=== PATIENT | female | born 1945 | race Caucasian/White ===

== ENCOUNTER 2017-08-25 10:36 | Emergency (ER) | payer MEDICARE, OTHER ==
[2017-08-25 10:55] VITALS: BP 118/78
[2017-08-25] MEDS ORDERED: Amoxicillin/Clavulanate TAB* 875 MG PO ONE (11:39)
--- NOTE | 2017-08-25 11:50 | UC ---
Brock Wyman Rebecca, scribed for Gloria Frost MD on 08/25/17 at 1116 . Upper Extremity HPI - HPI Summary HPI Summary: Pt is a 71 y/o F who presents to [facility] c/o right 4th finger swelling and erythema around the fingernail. Sx began a few days as what she initially believed to be a hangnail. The pain is currently moderate, ranked 6/10 and has not been treated with any medication. Soaked the finger in epsom salts and hydrogen peroxide which did not improve symptoms. Sx aggravated by touch, alleviated by nothing. No h/o similar Pt also notes mild erythema and R wrist pain on medial, volar wrist, beginning at about 0400, which has improved since onset and she suspects may be an arthritic flare. Denies elbow pain, fever, chills.No red streaking. No edema. No analgesia taken. no h/o similar No h/o gout. PMHx arthritis and she is not immunocompromised; no PMHx gout. medications reviewed this visit - History of Current Complaint Chief Complaint: UCUpperExtremity Stated Complaint: FINGER PAIN Time Seen by Provider: 08/25/17 11:13 Hx Obtained From: Patient Onset/Duration: Lasting Days, Still Present Severity Currently: Moderate Pain Intensity: 6 Pain Scale Used: 0-10 Numeric Location Of Pain: Is Discrete @ - Right 4th finger Aggravating Factor(s): Other - Palpation Alleviating Factor(s): Nothing Associated Signs And Symptoms: Positive: Swelling, Redness - Allergies/Home Medications Allergies/Adverse Reactions: Allergies Allergy/AdvReac Type Severity Reaction Status Date / Time Sulfa (Sulfonamide Allergy Hives Verified 08/25/17 10:55 Antibiotics) trimoxosol Allergy Hives Uncoded 08/25/17 10:55 PMH/Surg Hx/FS Hx/Imm Hx - Additional Past Medical History Additional PMH: PMHx: Arthritis NEGATIVE PMHx: DM, COPD, gout Previously Healthy: Yes Cardiovascular History: Hypertension - Surgical History Surgical History: Yes Surgery Procedure, Year, and Place: PARTIAL THYROIDECTOMY 2004;. TONSILS A CHILD. Rt HIP REPLACEMENT - Family History Known Family History: Positive: Cardiac Disease - Social History Lives: With Family Alcohol Use: Rare Substance Use Type: None Smoking Status (MU): Never Smoked Tobacco Have You Smoked in the Last Year: No Review of Systems Constitutional: Negative Skin: Negative Eyes: Negative ENT: Negative Respiratory: Negative Cardiovascular: Negative Gastrointestinal: Negative Genitourinary: Negative Motor: Negative Neurovascular: Negative Musculoskeletal: Arthralgia - Right 4th finger pain, right wrist pain, Other: - Right 4th finger swelling and erythema Neurological: Negative Psychological: Negative All Other Systems Reviewed And Are Negative: Yes - Comments Additional Review of Systems Comments: NEGATIVE: Elbow pain, fever, and chills Physical Exam Triage Information Reviewed: Yes Appearance: Well-Appearing, No Pain Distress, Well-Nourished Vital Signs: Initial Vital Signs Temp 98.0 F 08/25/17 10:49 Pulse 70 08/25/17 10:49 Resp 18 08/25/17 10:49 BP 118/78 08/25/17 10:49 Pulse Ox 100 08/25/17 10:49 Vital Signs Reviewed: Yes Eyes: Positive: Conjunctiva Clear ENT: Positive: Hearing grossly normal Neck: Positive: Supple Respiratory: Positive: No respiratory distress, No accessory muscle use Cardiovascular: Positive: Other: - 2+ radial 2+ ulnar CBT <2 sec all digits Musculoskeletal: Positive: Other: - + flex/ext right elbow + pronate/supinate right elbow + flex/ext wrist mild disocmfort medial aspect of wrist - no crepitus, no edema no pain carpals, metacarpals, phalanges Neurological: Positive: Alert, Muscle Tone Normal Psychological Exam: Normal Skin Exam: Other - right ring finger pt with early paronychia medial aspect. erythema from cuticle to mid point of DIP no fluctuance, no appreciable fluid collection mild tenderness right wrist, doral aspect - pt with quarter size mild erythema prox to radial styloid. mild warmth. no edema, no ecchymosis mild tenderness Pt with Full ROM wrist Upper Extremity Course/Dx - Course Course Of Treatment: Patients medications reviewed this visit. Pt with paronychia right right finger without fluid pocket for drainage. epsom salt soaks. Aumgentin. splint. return precautions. pt with patch of erthema right dorsum wrist mild tenderness. minimal concern for infection - suspect arthritis vs gout - no h/o similar. recommend NSAID. bmp/uric acid. splint for comfort. return precautions. pt comfortable and in agreement with plan - Differential Dx/Diagnosis Provider Diagnoses: paronychia. wrist pain Discharge - Sign-Out/Discharge Documenting (check all that apply): Discharge - Discharge Plan Condition: Stable Disposition: HOME Prescriptions: Amoxicillin/Clavulanate TAB* [Augmentin TAB 875*] 875 mg PO BID #14 tab Patient Education Materials: Paronychia (ED), Gout (ED) Referrals: Kell Ramesh MD [Primary Care Provider] - Additional Instructions: For your Finger: - soak in warm epsom salts for 15 minutes, 2-3 times a dayfor 5 days - wear splint for comfort and support - Take antibiotics as prescribed until gone - take with food - Contact your dentist office on Sunday to discuss if you should take additional Amoxicillin prior to your procedure For your wrist: As discussed, the provider thinks this is related to your arthritis, but it may be an early gout flare. You had blood work drawn today - you will receive a call from our care team if your bloodwork is markedly abnormal. Wear splint for comfort Consider alternating ibuprofen (advil, motrin) 600mg and Tylenol every 3hours as needed for pain If you develop increased pain, swelling, fever, red streaking it is recommended you go directly to the emergency department for additional testing and evaluation. Contact your doctor or return with questions or concerns - Billing Disposition and Condition Condition: STABLE Disposition: HOME The documentation as recorded by the Brock rodriguez Rebecca accurately reflects the service I personally performed and the decisions made by me, Gloria Frost MD.
[2017-08-25 14:50] LABS: Uric Acid 3.6 mg/dL (2.3-6.6)
== END 2017-08-25 12:05 | disposition home or self-care (01) ==
LOC: UCEAST 10:36
DX: L03.011 Cellulitis of right finger (principal); M25.531 Pain in right wrist; Z88.2 Allergy status to sulfonamides; Z88.8 Allergy status to other drugs, medicaments and biological substances
CPT/HCPCS: 36415; 80048; 84550; 99213; A9270-GY; G0463

== ENCOUNTER 2018-09-24 10:48 | Day surgery (SDC) | payer MEDICARE, OTHER ==
[~2018-09-24 10:48] MED LIST: Buffered Lidocaine 1% SYRIN* 1 ML/SYRINGE INTRADERM ONE
[2018-09-24] MEDS ORDERED: Midazolam* 1 MG/ML 2 ML VIAL (2 MG) ONE (11:53)
[2018-09-24] MEDS ORDERED: fentaNYL* 50 MCG/ML 2 ML VIAL (100 MCG VIAL) ONE (12:07)
[2018-09-24] MEDS ORDERED: Propofol* 10 MG/ML 20 ML BTL ONE (12:09)
[2018-09-24] MEDS ORDERED: Lidocaine 2% PF * 5 ML VIAL ONE (12:09)
[2018-09-24 12:32] VITALS: BP 138/82
--- NOTE | 2018-09-24 13:03 | OP ---
DATE OF OPERATION/DATE OF DICTATION: 09/24/2018. DATE OF : 1945. SURGEON: Dr. Carlitos Armijo. [employer]INEER: None. ANESTHESIA: Topical with intravenous sedation. PRE-OP DIAGNOSIS: Cataract, right eye. POST-OP DIAGNOSIS: Cataract, right eye. OPERATIVE PROCEDURE: Phacoemulsification and cataract extraction with posterior chamber intraocular lens implant, right eye. COMPLICATIONS: None. BLOOD LOSS: None. OPERATIVE FINDINGS: The patient was brought to the operating room and received a small amount of int ravenous sedation. A drop of Tetracaine was placed in her right eye. She was prepped and draped in the usual sterile fashion for ophthalmic surgery and attention was directed to the right eye where a speculum was placed. A paracentesis was created at the 11 o'clock position and 0.1 cc of 1 percent p reservative-free Lidocaine was injected into the anterior chamber followed by DisCoVisc. The eye was digitally stabilized while a 2.75 mm keratome was used to create a triplanar clear corneal incision at the 9 o'clock position. A continuous curvilinear capsulorrhexis was created with a cystotome and Utrata forceps. BSS on a cannula was used to hydrodissect the lens from the capsule. Phacoemulsific ation was performed in a [id number] technique to create four fragments which were removed. R esidual cortical material was removed with irrigation and aspiration. DisCoVisc was used to inflate t he capsular bag and an AUOOTO 20.5 diopter lens was folded and inserted into the capsular bag. DisCo Visc was removed using irrigation and aspiration. BSS on a cannula was used to hydrate the corneal s troma and seal the wound. At the end of the case the pupil was round and the lens was centered. The eye was of normal pressure and the wound was water tight. The speculum was removed and topical Maxit rol ointment was placed on the surface of the eye. The eye was closed, patched and shielded and the patient was sent to the recovery room in stable condition with post operative instructions and follow -up appointment given. [id number]/[facility] #: [id number]
[2018-09-24] MEDS ORDERED: Tetracaine 0.5% OPTH.SOL 4 ML* 1 DROP BTL ONE (15:40)
[2018-09-24] MEDS ORDERED: Neomycin/Polymy/Dex OPHTH.OIN* 3.5 GM ONE (15:40)
[2018-09-24] MEDS ORDERED: Tropicamide 1% OPTH.SOL* BTL ONE (15:40)
[2018-09-24] MEDS ORDERED: Cyclopentolate 1% OPTH.SOL* 2 ML BTL ONE (15:40)
[2018-09-24] MEDS ORDERED: Lidocaine 1%* 5 ML VIAL ONE (15:40)
[2018-09-24] MEDS ORDERED: Phenylephrine OPHTH SOL 2.5%* 2 ML ONE (15:40)
[2018-09-24] MEDS ORDERED: Ketorolac 0.5% OPHTH (NF) 0.5 % 5 ML BTL ONE (15:40)
== END 2018-09-24 12:42 | disposition home or self-care (01) ==
LOC: OREAST 10:48
PROVIDERS: ATTEND Ophthalmology
DX: H25.11 Age-related nuclear cataract, right eye (principal); H25.041 Posterior subcapsular polar age-related cataract, right eye; I10 Essential (primary) hypertension; M48.02 Spinal stenosis, cervical region; H18.51 Endothelial corneal dystrophy; C18.1 Malignant neoplasm of appendix; Z88.5 Allergy status to narcotic agent; Z88.2 Allergy status to sulfonamides; Z88.8 Allergy status to other drugs, medicaments and biological substances
CPT/HCPCS: A9270-GY; J2250; J2704; J3010; V2632

== ENCOUNTER 2018-10-09 13:11 | Emergency (ER) | payer MEDICARE, OTHER ==
--- OUTSIDE RECORDS SUMMARY | 2018-10-09 13:24 | XMS REPORT | Continuity of Care Document ---
:1945 External Reference #:[id number] Author Name Mallory Fan Care Team Providers Name Role Phone Kell Ramesh MD Primary Care Physician Unavailable Payers Date Identification Numbers Payment Provider Subscriber Effective: 2011 Policy Number: [id number] Medicare Christ Taylor PayID: [id number] [address] [place] [address] Policy Number: [id number] [facility] Christ Taylor PayID: [id number] [address] [place] [address] Effective: 2018 Policy Number: [id number] [facility] Christ Taylor Onset: 2018 Group Number: [id number] [address] PayID: [id number] [place] [address] Expires: 2018 Policy Number: [id number] [employer] Christ Hoffman [employer] Group Number: [id number] [employer] Group Name: [facility]#[id number] 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 Active Onset: 03/19/2015 Essential hypertension Kell Ramesh M.D. Active Onset: 10/13/2015 Localized, primary osteoarthritis of Meggan Costello M.D. Active the pelvic region and thigh Onset: 05/19/2017 Spinal stenosis in cervical region Kell Ramesh M.D. Active Family History Date Family Member(s) Observation Comments General Heart Disease General Diabetes General Cancer : (age 74 Father due to Cancer, Years) Colon Father Colon Cancer Father Lung Cancer Father Skin Cancer Father Hypertension Father Diabetes Father psychiatric disorder : (age 93 Mother due to Stroke breast CA (lumpectomy Years) at age 85), dementia Mother Breast Cancer Mother Arthritis Mother Dementia First Daughter Chronic pain : (age 58 First Brother due to Heart ND, sudden . He Years) Disease had muscular dystrophy. Autopsy showed cardiomegaly, remote infarct, pulm congestion, widely patent coronaries. 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 ETOH Use Drinks Alcoholic 1/2 glass of wine or Beverages Rarely beer rarely Tobacco Use Start: Unknown Patient has never smoked Recreational Drug Use Denies Drug Use Smoking Status Reviewed: 09/10/18 Patient has never smoked Exercise Type/Frequency Exercises regularly walk or stationary bike 5-6 times per week, strength exercises 3-4 times per week Allergies, Adverse Reactions, Alerts Date Description Reaction Status Severity Comments 07/20/2009 Sulfa rash see notes 11/30/92 Active 07/20/2009 Bactrim Urticaria Active 02/04/2010 Trimox Urticaria Active Moderate 07/25/2018 [place] Venom Active Protein Medications Medication Date Status Form Strength Qnty SIG Indications Ordering Provider Docusate Sodium 11/17 Active Capsules 100mg 60cap as needed s Epipen 2-Kip 11/07 Active Solution 0.3mg/0.3 2unit Use Once Auto-Inject ML s as Lucian Ramesh M.D. Metrogel Active Gel 1% 60gm apply / daily Coenzyme Q-10 Active Capsules 100mg 1 po qd Unknown /0000 Vitamin D-3 Active Tablets 400Unit 2 po qd Unknown /0000 Osteo Prime Ultra Active 2 po bid Unknown /0000 Fish Oil Active as Unknown /0000 directed Vitamin A Active Tablets 74954Srcm every Unknown /0000 other day Aspirin Adult Low Active Tablets DR 81mg 07/25/18 Unknown Strength /0000 reports not taking. take one tablet by mouth daily when she remembers Vitamin C Active Chewtabs 500mg 1 by Unknown /0000 mouth every day Traumeel Active Gel prn Unknown /0000 Lidocaine-Priloca Active Cream 2.5-2.5% Unknown ine /0000 Tylenol Extra Active Tablets 500mg 1-2 tabs Unknown Strength /0000 by mouth every 6 hours as needed Arnica [place] Active Pellet 07/25/18 Unknown /0000 reports not taking. prn for arthritis B6 Natural Active Tablets 100mg take 1 Unknown /0000 capsule/t ablet daily by mouth Essiac Tonic Active Liquid 07/25/18 Unknown /0000 reports has not started yet daily Famotidine Active Tablets 40mg 1 by Unknown /0000 mouth every day Maitake Mushroom Active Unknown Tincture /0000 Simethicone Active Chewtabs 80mg 1 tab Unknown /0000 every 6 hours as needed bloating Glucosamine Active Capsules 500mg 2 by Unknown /0000 mouth every day Zeel Active Ointment prn Unknown /0000 Vitamin D 07/22 Hx Capsules 400Unit 60cap 2 by Daysi (Cholecalciferol) s mouth Diego, - daily N.P. 07/25 Magic Mouthwash 01/07 Hx Equal 840ml lidocaine [employer] , Nguyễn Wiley, - Clover peters,FACP 07/25 maalox, /2018 nystatin, and hydrocort isone; 5 ml qid prn Lidocaine Viscous 01/07 Hx Solution 2% 45ml for magic mouthwash Nguyễn Wiley, - 5 ml qid Colver,FACP 07/25 Hydrocortisone 01/07 Hx Ointment 1% 453.6 for magic 00gm mouthwash Tawana Cooper M.D.,FACP 07/25 Enoxaparin Sodium 11/17 Hx Solution 40mg/0.4M 11.2u Inject 1 L nits Syringe - (40 mg 01/07 total) into the skin every 24 hours for 28 days Ibuprofen 11/17 Hx Tablets 600mg 40tab Take 1 s tablet - (600 mg 05/14 total) mouth every 6 hours Sennosides 11/17 Hx Tablets 8.6mg 30tab as needed s - 07/25 Tramadol HCL 11/17 Hx Tablets 50mg 20tab Take 1 s tablet - (50 mg 03/18 total) mouth every 6 hours as needed Max daily dose: 200 mg (pt does not taking currently : prn) Pravastatin 03/17 Hx Tablets 10mg 90tab 1 by s mouth at Cotton, - bedtime-t M.D. 11/22ora stopped Zostavax /14 Hx Solution 00269Hxj/ 1unit 1 dose Rec 0.65ML s s/c Cotton, - M.D. 12/25 Proair HFA 09/16 Hx Aerosol 108(90Bas 8.500 2 puffs 4 786.05 e) gm times Cotton, - mcg/Act daily as M.D. 12/25 Zostavax 03/14 Hx Solution 66432Ipd/ 1unit 1 dose V70.0 Rec 0.65ML s s/c Cotton, - M.D. 10/01 Toprol XL 11/04 Hx Tablets ER 25mg 90tab Take One 24HR s Tablet By Cotton, - Mouth M.D. 01/07 Every /2017 Ventolin HFA 12/10 Hx Aerosol 108(90Bas 1unit 2 puffs 4 786.09 e) mcg/ac s times a Cotton, - day as M.D. 10/31 Toprol XL 02/09 Hx Tablets ER 25mg 90tab 1 po qd 24HR s Cotton, - M.D. 10/31 Triamcinolone 02/02 Hx Cream 0.1% 30gm apply 782.1 Kell Acetonide thin film Cotton, - twice M.D. 03/17 daily right ankle Proair HFA 01/06 Hx Aerosol 108(90Bas 8.500 2 puffs 4 786.05 e) mcg/ac gm times Cotton, - daily as M.D. 09/16 Ketoconazole 03/14 Hx Cream 2% 30gm apply 782.1 Kell /2010 thin film Cotton, - twice M.D. 07/05 Triamterene-HCTZ 11/09 Hx Capsules 37.5-25mg 45cap 06/05 401.1 Kell /2010 s tablet Cotton, - once M.D. 02/04 Toprol XL 11/07 Hx Tablets ER 50mg 90tab 06/05 Kell /2010 24HR s tablet Cotton, - once M.D. 02/09 Fluticasone 11/07 Hx Suspension 50mcg/Act 16gm 2 Kell Propionate intranasa Cotton, - l puffs M.D. 11/09 daily Pravastatin 11/07 Hx Tablets 20mg 90tab Take One Kell Sodium s Tablet By Cotton, - Mouth AT M.D. 03/17 Bedtime Vitamin D3 Hx Chewtabs 400Unit once Unknown /0000 daily - 10/31 Ar Encap Hx 2 po bid Unknown /0000 - 01/07 Econazole Nitrate Hx Cream 1% 30g topical Unknown /0000 prn - 10/31 Zin Man Drops 00 Hx alt w/ Unknown /0000 Ar- encap - supplemen 09/16 Sun Is Shining Hx Powder 1/2 tsp Unknown /0000 daily - 09/16 Osteo Prime 00/ Hx Unknown /0000 - 07/24 Metoprolol Hx Tablets 25mg 1 by Unknown Tartrate /0000 mouth - daily 09/20 Turmeric Hx Capsules 450mg qd Unknown /0000 - 01/07 Excedrin Migraine Hx Tablets 250-250-6 1 by Unknown /0000 5mg mouth - three 01/07 times day as needed Zeel Hx Ointment prn for Unknown / arthritis - 07/22 Nystatin Hx Suspension 893701Vct 4 Unknown / t/ML millilite - rs four 07/25 times day, swish and swallow for 14 days Ondansetron HCL Hx Tablets 8mg as needed Unknown / - 07/25 5-Fluorouracil Hx Powder part of Unknown / Folfox - chemo 07/22 /2018 Oxaliplatin Hx Solution 100mg/20M Unknown /0000 L - 07/22 Glucosamine Hx Capsules 500Comp 2 daily Unknown Chondroitin 500 /0000 Complex - 07/25 Prochlorperazine Hx Tablets 10mg Unknown Maleate / - 07/25 Immunizations CPT Code Status Date Vaccine Reaction Lot # [id number] Given 03/08/2017 Influenza Virus Vaccine, [id number] Quadrivalent, Split, Preservative Free 44869 Given 02/24/2016 Influenza Virus Vaccine, no reaction noted ... [id number] Quadrivalent, Split, hh Preservative Free 57067 Given 03/30/2015 Pneumococcal Conjugate [id number] Vaccine 13 Valent For Intramuscular Use 82740 Given 03/19/2015 Influenza Virus Vaccine, [id number] Quadrivalent, Split, Preservative Free 02334 Given 03/17/2014 Flu Vaccine Split Virus [id number] Preservative Free For Indiv 3Yr Older Q2037 Given 02/28/2013 Fluvirin Im 3Yrs And Older Q2038 Given 02/12/2012 Fluzone Vaccine [id number] 54775 Given 01/26/2012 Pneumonia Vaccine [id number] 52361 Given 03/20/2011 Influenza Virus 3Yrs & Over [id number] 76141 Given 07/05/2010 Tdap - Tetanus/Diptheria/Acellular Pertussis 15707 Given 04/27/2008 Influenza Virus 3Yrs & Over 76554 Given 04/27/2008 Influenza Virus 3Yrs & Over Vital Signs Date Vital Result Comment 09/10/2018 11:32am Height 63 inches 5'3" Weight 133.00 lb Heart Rate 83 /min BP Systolic Sitting 130 mmHg BP Diastolic Sitting 80 mmHg O2 % BldC Oximetry 100 % BMI (Body Mass Index) 23.6 kg/m2 09/02/2018 9:59am Height 63 inches 5'3" Weight 134.00 lb Heart Rate 78 /min BP Systolic 135 mmHg BP Diastolic 82 mmHg O2 % BldC Oximetry 99 % BMI (Body Mass Index) 23.7 kg/m2 07/25/2018 3:23pm Height 63 inches 5'3" Weight 133.25 lb Heart Rate 86 /min BP Systolic 142 mmHg BP Diastolic 92 mmHg BP Systolic Recheck 138 mmHg BP Diastolic Recheck 86 mmHg Body Temperature 97.8 F O2 % BldC Oximetry 99 % BMI (Body Mass Index) 23.6 kg/m2 05/14/2018 12:10pm Height 63 inches 5'3" Weight 130.00 lb Heart Rate 96 /min BP Systolic 106 mmHg BP Diastolic 73 mmHg Body Temperature 98.3 F O2 % BldC Oximetry 98 % BMI (Body Mass Index) 23.0 kg/m2 03/19/2018 2:47pm Height 63 inches 5'3" Weight 135.00 lb Heart Rate 83 /min BP Systolic Sitting 134 mmHg BP Diastolic Sitting 80 mmHg O2 % BldC Oximetry 97 % BMI (Body Mass Index) 23.9 kg/m2 03/14/2018 4:14pm Height 63 inches 5'3" Weight 135.00 lb Heart Rate 88 /min BP Systolic 126 mmHg BP Diastolic 82 mmHg O2 % BldC Oximetry 97 % BMI (Body Mass Index) 23.9 kg/m2 Last Menstrual Period [id number] 01/07/2018 10:38am Height 63 inches 5'3" Weight 135.00 lb Heart Rate 97 /min BP Systolic Sitting 116 mmHg BP Diastolic Sitting 62 mmHg Body Temperature 98.5 F O2 % BldC Oximetry 98 % BMI (Body Mass Index) 23.9 kg/m2 11/05/2017 8:08am Height 63 inches 5'3" Weight 147.00 lb Heart Rate 72 /min BP Systolic 131 mmHg BP Diastolic 83 mmHg Body Temperature 97.0 F O2 % BldC Oximetry 99 % BMI (Body Mass Index) 26.0 kg/m2 10/12/2017 8:04am Height 63 inches 5'3" Weight 147.00 lb Heart Rate 103 /min BP Systolic Sitting 140 mmHg BP Diastolic Sitting 88 mmHg O2 % BldC Oximetry 99 % BMI (Body Mass Index) 26.0 kg/m2 10/08/2017 10:35am Height 63 inches 5'3" Weight 145.00 lb Heart Rate 80 /min BP Systolic Sitting 120 mmHg BP Diastolic Sitting 78 mmHg Body Temperature 97.1 F O2 % BldC Oximetry 97 % BMI (Body Mass Index) 25.7 kg/m2 09/07/2017 1:25pm Height 63 inches 5'3" Weight 148.75 lb Heart Rate 70 /min BP Systolic 126 mmHg BP Diastolic 80 mmHg Body Temperature 98.3 F O2 % BldC Oximetry 98 % BMI (Body Mass Index) 26.3 kg/m2 06/21/2017 11:28am Height 63 inches 5'3" Weight 150.00 lb Heart Rate 98 /min BP Systolic 150 mmHg BP Diastolic 82 mmHg Body Temperature 98.1 F O2 % BldC Oximetry 99 % BMI (Body Mass Index) 26.6 kg/m2 06/19/2017 10:31am Height 63 inches 5'3" Weight 147.00 lb Heart Rate 88 /min BP Systolic Sitting 132 mmHg BP Diastolic Sitting 81 mmHg Pain Level 1 BMI (Body Mass Index) 26.0 kg/m2 12/25/2016 10:33am Weight 144.00 lb Heart Rate 94 /min BP Systolic 136 mmHg BP Diastolic 72 mmHg Body Temperature 98.3 F O2 % BldC Oximetry 97 % 05/01/2016 2:42pm Height 63 inches 5'3" Weight 142.00 lb Heart Rate 72 /min BP Systolic 128 mmHg BP Diastolic 90 mmHg Body Temperature 98.1 F O2 % BldC Oximetry 98 % BMI (Body Mass Index) 25.2 kg/m2 04/13/2016 12:54pm Weight 141.00 lb Heart Rate 72 /min BP Systolic Sitting 136 mmHg BP Diastolic Sitting 86 mmHg Respiratory Rate 15 /min Body Temperature 97.7 F O2 % BldC Oximetry 98 % 12/29/2015 10:25am Height 63 inches 5'3" Weight 137.00 lb Pain Level 4 BMI (Body Mass Index) 24.3 kg/m2 12/13/2015 10:30am Weight 137.00 lb Heart Rate 91 /min BP Systolic Sitting 120 mmHg recheck 130/88 BP Diastolic Sitting 90 mmHg recheck 130/88 Body Temperature 98.0 F O2 % BldC Oximetry 98 % 11/24/2015 10:10am Height 63 inches 5'3" Heart Rate 140 /min Pain Level 6 10/13/2015 9:48am Height 63 inches 5'3" Weight 140.00 lb Heart Rate 71 /min BP Systolic 118 mmHg BP Diastolic 70 mmHg BMI (Body Mass Index) 24.8 kg/m2 10/08/2015 9:46am Height 62.50 inches 5'2.50" Weight 142.00 lb Heart Rate 68 /min BP Systolic Sitting 112 mmHg BP Diastolic Sitting 72 mmHg Body Temperature 97.0 F O2 % BldC Oximetry 97 % BMI (Body Mass Index) 25.6 kg/m2 09/20/2015 10:25am Weight 141.75 lb Heart Rate 76 /min BP Systolic Sitting 126 mmHg BP Diastolic Sitting 64 mmHg Body Temperature 97.3 F Pain Level 1 O2 % BldC Oximetry 98 % 07/21/2015 9:10am Weight 142.75 lb Heart Rate 80 /min BP Systolic Sitting 124 mmHg BP Diastolic Sitting 76 mmHg Body Temperature 97.1 F Pain Level 0 O2 % BldC Oximetry 96 % 04/15/2015 2:49pm Weight 144.50 lb Heart Rate 84 /min BP Systolic Sitting 125 mmHg BP Diastolic Sitting 82 mmHg O2 % BldC Oximetry 96 % 03/19/2015 3:05pm Height 62.75 inches 5'2.75" Weight 146.00 lb Heart Rate 80 /min BP Systolic Sitting 129 mmHg BP Diastolic Sitting 83 mmHg Body Temperature 97.1 F O2 % BldC Oximetry 98 % BMI (Body Mass Index) 26.1 kg/m2 11/20/2014 4:14pm Height 63 inches 5'3" Weight 147.00 lb Heart Rate 75 /min BP Systolic 120 mmHg BP Diastolic 79 mmHg Body Temperature 98.0 F Peak Flow Meter 425, 40 BMI (Body Mass Index) 26.0 kg/m2 09/21/2014 9:39am Height 63 inches 5'3" Weight 140.00 lb Heart Rate 79 /min BP Systolic 113 mmHg BP Diastolic 68 mmHg Body Temperature 97.8 F Pain Level 3 BMI (Body Mass Index) 24.8 kg/m2 07/24/2014 10:03am Weight 145.00 lb Heart Rate 78 /min BP Systolic Sitting 120 mmHg BP Diastolic Sitting 78 mmHg Body Temperature 96.8 F 03/17/2014 1:48pm Height 63.25 inches 5'3.25" Weight 144.00 lb Heart Rate 80 /min BP Systolic Sitting 118 mmHg BP Diastolic Sitting 78 mmHg Body Temperature 97.5 F BMI (Body Mass Index) 25.3 kg/m2 09/16/2013 8:46am Weight 141.75 lb Heart Rate 84 /min BP Systolic Sitting 136 mmHg BP Diastolic Sitting 80 mmHg Respiratory Rate 18 /min Body Temperature 97.9 F 03/14/2013 1:45pm Height 63.5 inches 5'3.50" Weight 143.00 lb Heart Rate 80 /min BP Systolic Sitting 122 mmHg BP Diastolic Sitting 86 mmHg BMI (Body Mass Index) 24.9 kg/m2 11/25/2012 11:57am Weight 139.00 lb Heart Rate 72 /min BP Systolic Sitting 120 mmHg BP Diastolic Sitting 72 mmHg 10/31/2012 2:48pm Weight 139.50 lb Heart Rate 84 /min BP Systolic Sitting 140 mmHg BP Diastolic Sitting 80 mmHg 08/02/2012 4:08pm Height 63 inches 5'3" Weight 141.00 lb Heart Rate 68 /min BP Systolic 122 mmHg BP Diastolic 80 mmHg BMI (Body Mass Index) 25.0 kg/m2 05/30/2012 10:52am Height 63 inches 5'3" Weight 138.00 lb Heart Rate 74 /min BP Systolic Sitting 122 mmHg repeat by me 150/100 both arms BP Diastolic Sitting 76 mmHg repeat by me 150/100 both arms BMI (Body Mass Index) 24.4 kg/m2 05/06/2012 4:18pm Height 63 inches 5'3" Heart Rate 70 /min BP Systolic Sitting 140 mmHg BP Diastolic Sitting 86 mmHg 03/26/2012 1:50pm Height 63 inches 5'3" Heart Rate 76 /min BP Systolic Sitting 100 mmHg BP Diastolic Sitting 70 mmHg 01/26/2012 10:50am Height 63 inches 5'3" Weight 141.00 lb Heart Rate 76 /min BP Systolic Sitting 118 mmHg BP Diastolic Sitting 70 mmHg BMI (Body Mass Index) 25.0 kg/m2 12/11/2011 2:49pm Height 63 inches 5'3" Weight 141.00 lb Heart Rate 74 /min BP Systolic Sitting 118 mmHg BP Diastolic Sitting 70 mmHg Body Temperature 98.4 F BMI (Body Mass Index) 25.0 kg/m2 10/27/2011 4:10pm Height 63 inches 5'3" Weight 145.00 lb Heart Rate 76 /min BP Systolic Sitting 138 mmHg BP Diastolic Sitting 82 mmHg BMI (Body Mass Index) 25.7 kg/m2 10/03/2011 2:58pm Height 63 inches 5'3" Weight 147.00 lb Heart Rate 76 /min BP Systolic Sitting 124 mmHg BP Diastolic Sitting 72 mmHg BMI (Body Mass Index) 26.0 kg/m2 07/28/2011 11:14am Height 63 inches 5'3" Weight 151.00 lb Heart Rate 74 /min BP Systolic Sitting 122 mmHg BP Diastolic Sitting 68 mmHg BMI (Body Mass Index) 26.7 kg/m2 03/20/2011 4:16pm Height 63 inches 5'3" Weight 151.00 lb Heart Rate 76 /min BP Systolic Sitting 140 mmHg BP Diastolic Sitting 78 mmHg BMI (Body Mass Index) 26.7 kg/m2 02/08/2011 11:26am BP Systolic Sitting 122 mmHg BP Diastolic Sitting 80 mmHg 02/02/2011 10:22am Height 63.75 inches 5'3.75" Weight 148.00 lb Heart Rate 76 /min BP Systolic Sitting 100 mmHg BP Diastolic Sitting 70 mmHg BMI (Body Mass Index) 25.6 kg/m2 01/06/2011 11:47am Height 63.75 inches 5'3.75" Weight 149.00 lb Heart Rate 64 /min O2 % BldC Oximetry 98 % BMI (Body Mass Index) 25.8 kg/m2 12/15/2010 10:16am Height 63.75 inches 5'3.75" Weight 148.00 lb Heart Rate 62 /min BP Systolic Sitting 110 mmHg BP Diastolic Sitting 64 mmHg Body Temperature 97.6 F BMI (Body Mass Index) 25.6 kg/m2 09/15/2010 3:35pm Weight 151.00 lb Heart Rate 78 /min BP Systolic Sitting 124 mmHg BP Diastolic Sitting 80 mmHg O2 % BldC Oximetry 97 % 07/05/2010 3:50pm Weight 151.50 lb Heart Rate 64 /min BP Systolic 120 mmHg BP Diastolic 70 mmHg 04/14/2010 11:26am Weight 148.50 lb Heart Rate 76 /min BP Systolic 112 mmHg BP Diastolic 72 mmHg 03/14/2010 1:42pm Height 63.5 inches 5'3.50" Weight 151.50 lb Heart Rate 78 /min BP Systolic 122 mmHg BP Diastolic 80 mmHg BMI (Body Mass Index) 26.4 kg/m2 02/04/2010 10:03am Weight 153.50 lb Heart Rate 72 /min BP Systolic 114 mmHg BP Diastolic 74 mmHg 12/23/2009 7:46pm Weight 155.25 lb Heart Rate 76 /min BP Systolic 122 mmHg BP Diastolic 76 mmHg Body Temperature 99.0 F 12/16/2009 8:45pm Weight 154.50 lb Heart Rate 78 /min BP Systolic 110 mmHg BP Diastolic 80 mmHg Body Temperature 97.7 F 11/09/2009 7:38pm Weight 161.00 lb Heart Rate 72 /min BP Systolic 118 mmHg BP Diastolic 86 mmHg Results Test Date Facility Test Result H/L Range Note Laboratory test 09/05/2018 [facility] CRP High 0.26 mg/L < 2.00 [address] [place] [address] [phone] CBC Auto Diff 09/05/2018 [facility] White Blood 4.7 10^3/uL N 3.5-10.[address] [place] [address] [phone] Red Blood Count 4.18 10^6/uL N 3.70-4.87 Hemoglobin 13.2 g/dL N 12.0-16.0 Hematocrit 39 % N 33-41 Mean Corpuscular Volume 93 fL N 80-97 Mean Corpuscular Hemoglobin 32 pg High 27-31 Mean Corpuscular HGB Conc 34 g/dL N 31-36 Red Cell Distribution Width 14 % N 10.5-15 Platelet Count 192 10^3/uL N 150-450 Mean Platelet Volume 8.4 fL N 7.4-10.4 Abs Neutrophils 2.2 10^3/uL N 1.5-7.7 Abs Lymphocytes 2.1 10^3/uL N 1.0-4.8 Abs Monocytes 0.3 10^3/uL N 0-0.8 Abs Eosinophils 0.1 10^3/uL N 0-0.6 Abs Basophils 0 10^3/uL N 0-0.2 Abs Nucleated RBC 0 10^3/uL Granulocyte % 47.0 % Lymphocyte % 43.8 % Monocyte % 6.9 % Eosinophil % 1.7 % Basophil % 0.6 % Nucleated Red Blood Cells % 0 Comp Metabolic Panel 09/05/2018 [facility] Sodium 136 mmol/L N 135-[address] [place] [address] [phone] Potassium 4.0 mmol/L N 3.5-5.0 Chloride 102 mmol/L N 101-111 Co2 Carbon Dioxide 27 mmol/L N 22-32 Anion Gap 7 mmol/L N 2-11 Glucose 95 mg/dL N 70-100 Blood Urea Nitrogen 18 mg/dL N 6-24 Creatinine 0.66 mg/dL N 0.51-0.95 BUN/Creatinine Ratio 27.3 High 8-20 Calcium 9.7 mg/dL N 8.6-10.3 Total Protein 6.7 g/dL N 6.4-8.9 Albumin 4.4 g/dL N 3.2-5.2 Globulin 2.3 g/dL N 2-4 Albumin/Globulin Ratio 1.9 N 1-3 Total Bilirubin 1.00 mg/dL N 0.2-1.0 Alkaline Phosphatase 120 U/L High 34-104 Alt 25 U/L N 7-52 Ast 25 U/L N 13-39 Egfr Non- 88.3 >60 Egfr 106.8 >60 2 Lipid Profile 09/05/2018 [facility] Triglycerides 108 mg/dL 3 (Trig/Chol/HDL) [address] [place] [address] [phone] Cholesterol 216 mg/dL 4 HDL Cholesterol 73.5 mg/dL 5 LDL Cholesterol 121 mg/dL 6 Laboratory test 09/05/2018 [facility] Insulin Level 6.2 mcIU/mL N 2.0-16.0 7 finding [address] [place] [address] [phone] Hemoglobin A1c (Glyco HGB) 5.3 % N 4.0-5.6 8 Homocysteine 8 mcmol/L 9 Methylmalonic Acid Mma 0.15 nmol/mL <=0.40 10 Vitamin B12 And 09/05/2018 [facility] Vitamin B12 870 pg/mL N 180-914 11 Folate Serum [address] [place] [address] [phone] Folic Acid (Folate) > 20.00 ng/mL >3.99 12 Laboratory test 09/05/2018 [facility] Zinc Serum 0.82 g/mL 0.66-1.10 13 finding [address] [place] [address] [phone] Copper, Serum 1.28 g/mL 0.75-1.45 14 Heavy Metal Blool 09/05/2018 [facility] Arsenic <1 ng/mL 0- [address] [place] [address] [phone] Lead <1.0 g/dL 0.0-4.9 16 Mercury <1 ng/mL 0-9 17 Cadmium 0.8 ng/mL 0.0-4.[address] [place] [address] [address] [address] [facility] KRISTY Guardian First Name CHRIST Hoffman Guardian Last Name BELLA Venous/Capillary Heavy Metals Venous Patient Race WHITE Submitting Laboratory Phone [phone] Vitamin B6 09/05/2018 [facility] Pyridoxal 97 g/L Abnormal 5 -[address] 5[place] [address] [phone] Pyridoxic Acid 56 g/L Abnormal 3-30 21 CBC Auto Diff 06/03/2018 [facility] White Blood 3.7 10^3/uL N 3.5-10.[address] [place] [address] [phone] Red Blood Count 3.61 10^6/uL Low 4.00-5.40 Hemoglobin 11.5 g/dL Low 12.0-16.0 Hematocrit 35 % N 35-47 Mean Corpuscular Volume 96 fL N 80-97 Mean Corpuscular Hemoglobin 32 pg High 27-31 Mean Corpuscular HGB Conc 33 g/dL N 31-36 Red Cell Distribution Width 18 % High 10.5-15 Platelet Count 148 10^3/uL Low 150-450 Mean Platelet Volume 8.4 fL N 7.4-10.4 Abs Neutrophils 1.3 10^3/uL Low 1.5-7.7 Abs Lymphocytes 1.9 10^3/uL N 1.0-4.8 Abs Monocytes 0.4 10^3/uL N 0-0.8 Abs Eosinophils 0.1 10^3/uL N 0-0.6 Abs Basophils 0 10^3/uL N 0-0.2 Abs Nucleated RBC 0 10^3/uL Granulocyte % 34.5 % Lymphocyte % 51.1 % Monocyte % 9.8 % Eosinophil % 3.8 % Basophil % 0.8 % Nucleated Red Blood Cells % 0.1 Comp Metabolic Panel 06/03/2018 [facility] Sodium 138 mmol/L N 135-[address] [place] [address] [phone] Potassium 3.7 mmol/L N 3.5-5.0 Chloride 104 mmol/L N 101-111 Co2 Carbon Dioxide 28 mmol/L N 22-32 Anion Gap 6 mmol/L N 2-11 Glucose 116 mg/dL High 70-100 Blood Urea Nitrogen 18 mg/dL N 6-24 Creatinine 0.65 mg/dL N 0.51-0.95 BUN/Creatinine Ratio 27.7 High 8-20 Calcium 9.5 mg/dL N 8.6-10.3 Total Protein 6.4 g/dL N 6.4-8.9 Albumin 3.9 g/dL N 3.2-5.2 Globulin 2.5 g/dL N 2-4 Albumin/Globulin Ratio 1.6 N 1-3 Total Bilirubin 0.70 mg/dL N 0.2-1.0 Alkaline Phosphatase 124 U/L High 34-104 Alt 30 U/L N 7-52 Ast 34 U/L N 13-39 Egfr Non- 89.9 >60 Egfr 108.7 >60 22 Laboratory 06/03/2018 [facility] Carcinoembryonic 1.1 ng/mL N 0.1-5.0 23 test [place] [address] [phone] Laboratory 05/21/2018 [facility] Blood Culture SEE 24 [place] [address] BELOW [phone] CBC Auto Diff 05/21/2018 [facility] White Blood Count 5.5 N 3.5-10.8 DRIVE 10^3/uL [place], [place] [id number] [phone] Red Blood Count 3.49 10^6/uL Low 4.00-5.40 Hemoglobin 11.4 g/dL Low 12.0-16.0 Hematocrit 33 % Low 35-47 Mean Corpuscular Volume 95 fL N 80-97 Mean Corpuscular Hemoglobin 33 pg High 27-31 Mean Corpuscular HGB Conc 34 g/dL N 31-36 Red Cell Distribution Width 19 % High 10.5-15 Platelet Count 107 10^3/uL Low 150-450 Mean Platelet Volume 7.8 fL N 7.4-10.4 Abs Neutrophils 4.6 10^3/uL N 1.5-7.7 Abs Lymphocytes 0.3 10^3/uL Low 1.0-4.8 Abs Monocytes 0.5 10^3/uL N 0-0.8 Abs Eosinophils 0.1 10^3/uL N 0-0.6 Abs Basophils 0 10^3/uL N 0-0.2 Abs Nucleated RBC 0 10^3/uL Granulocyte % 83.8 % Lymphocyte % 4.8 % Monocyte % 9.7 % Eosinophil % 1.3 % Basophil % 0.4 % Nucleated Red Blood Cells % 0 CBC Auto Diff 05/20/2018 [facility] White Blood 4.0 10^3/uL N 3.5-10.[address] [place] [address] [phone] Red Blood Count 3.43 10^6/uL Low 4.00-5.40 Hemoglobin 11.0 g/dL Low 12.0-16.0 Hematocrit 33 % Low 35-47 Mean Corpuscular Volume 95 fL N 80-97 Mean Corpuscular Hemoglobin 32 pg High 27-31 Mean Corpuscular HGB Conc 34 g/dL N 31-36 Red Cell Distribution Width 19 % High 10.5-15 Platelet Count 149 10^3/uL Low 150-450 Mean Platelet Volume 8.5 fL N 7.4-10.4 Abs Neutrophils 1.8 10^3/uL N 1.5-7.7 Abs Lymphocytes 1.7 10^3/uL N 1.0-4.8 Abs Monocytes 0.4 10^3/uL N 0-0.8 Abs Eosinophils 0.1 10^3/uL N 0-0.6 Abs Basophils 0 10^3/uL N 0-0.2 Abs Nucleated RBC 0 10^3/uL Granulocyte % 44.5 % Lymphocyte % 43.2 % Monocyte % 9.6 % Eosinophil % 2.0 % Basophil % 0.7 % Nucleated Red Blood Cells % 0 Comp Metabolic Panel 05/20/2018 [facility] Sodium 137 mmol/L N 135-[address] [place] [address] [phone] Potassium 3.7 mmol/L N 3.5-5.0 Chloride 104 mmol/L N 101-111 Co2 Carbon Dioxide 28 mmol/L N 22-32 Anion Gap 5 mmol/L N 2-11 Glucose 110 mg/dL High 70-100 Blood Urea Nitrogen 20 mg/dL N 6-24 Creatinine 0.62 mg/dL N 0.51-0.95 BUN/Creatinine Ratio 32.3 High 8-20 Calcium 9.1 mg/dL N 8.6-10.3 Total Protein 6.1 g/dL Low 6.4-8.9 Albumin 3.8 g/dL N 3.2-5.2 Globulin 2.3 g/dL N 2-4 Albumin/Globulin Ratio 1.7 N 1-3 Total Bilirubin 0.60 mg/dL N 0.2-1.0 Alkaline Phosphatase 112 U/L High 34-104 Alt 25 U/L N 7-52 Ast 27 U/L N 13-39 Egfr Non- 94.9 >60 Egfr 114.8 >60 25 Laboratory 05/20/2018 [facility] Carcinoembryonic 1.1 N 0.1- 5.0 26 test finding [address] Antigen Cea ng/[place] [address] [phone] CBC Auto Diff 05/06/2018 [facility] White Blood Count 4.5 N 3.5-10.[address] 10^3/[place] [address] [phone] Red Blood Count 3.53 10^6/uL Low 4.00-5.40 Hemoglobin 11.3 g/dL Low 12.0-16.0 Hematocrit 33 % Low 35-47 Mean Corpuscular Volume 94 fL N 80-97 Mean Corpuscular Hemoglobin 32 pg High 27-31 Mean Corpuscular HGB Conc 34 g/dL N 31-36 Red Cell Distribution Width 19 % High 10.5-15 Platelet Count 149 10^3/uL Low 150-450 Mean Platelet Volume 9.2 fL N 7.4-10.4 Abs Neutrophils 2.1 10^3/uL N 1.5-7.7 Abs Lymphocytes 1.8 10^3/uL N 1.0-4.8 Abs Monocytes 0.5 10^3/uL N 0-0.8 Abs Eosinophils 0.1 10^3/uL N 0-0.6 Abs Basophils 0 10^3/uL N 0-0.2 Abs Nucleated RBC 0 10^3/uL Granulocyte % 46.6 % Lymphocyte % 40.3 % Monocyte % 10.2 % Eosinophil % 2.0 % Basophil % 0.9 % Nucleated Red Blood Cells % 0 Comp Metabolic Panel 05/06/2018 [facility] Sodium 138 mmol/L N 135-[address] [place] [address] [phone] Potassium 3.8 mmol/L N 3.5-5.0 Chloride 105 mmol/L N 101-111 Co2 Carbon Dioxide 28 mmol/L N 22-32 Anion Gap 5 mmol/L N 2-11 Glucose 117 mg/dL High 70-100 Blood Urea Nitrogen 19 mg/dL N 6-24 Creatinine 0.56 mg/dL N 0.51-0.95 BUN/Creatinine Ratio 33.9 High 8-20 Calcium 9.3 mg/dL N 8.6-10.3 Total Protein 6.5 g/dL N 6.4-8.9 Albumin 3.8 g/dL N 3.2-5.2 Globulin 2.7 g/dL N 2-4 Albumin/Globulin Ratio 1.4 N 1-3 Total Bilirubin 0.70 mg/dL N 0.2-1.0 Alkaline Phosphatase 129 U/L High 34-104 Alt 32 U/L N 7-52 Ast 33 U/L N 13-39 Egfr Non- 106.7 >60 Egfr 129.1 >60 27 Laboratory 05/06/2018 [facility] Carcinoembryonic 1.2 N 0.1- 5.0 28 test finding [address] [facility] Antigen Cea ng/[place] [address] [phone] CBC Auto Diff 04/22/2018 [facility] White Blood Count 3.7 N 3.5-10.[address] 10^3/[place] [address] [phone] Red Blood Count 3.56 10^6/uL Low 4.00-5.40 Hemoglobin 10.9 g/dL Low 12.0-16.0 Hematocrit 33 % Low 35-47 Mean Corpuscular Volume 92 fL N 80-97 Mean Corpuscular Hemoglobin 31 pg N 27-31 Mean Corpuscular HGB Conc 33 g/dL N 31-36 Red Cell Distribution Width 19 % High 10.5-15 Platelet Count 129 10^3/uL Low 150-450 Mean Platelet Volume 7.8 fL N 7.4-10.4 Abs Neutrophils 1.4 10^3/uL Low 1.5-7.7 Abs Lymphocytes 1.7 10^3/uL N 1.0-4.8 Abs Monocytes 0.5 10^3/uL N 0-0.8 Abs Eosinophils 0 10^3/uL N 0-0.6 Abs Basophils 0 10^3/uL N 0-0.2 Abs Nucleated RBC 0 10^3/uL Granulocyte % 38.0 % N 38-83 Lymphocyte % 46.6 % N 25-47 Monocyte % 13.5 % High 0-7 Eosinophil % 1.1 % N 0-6 Basophil % 0.8 % N 0-2 Nucleated Red Blood Cells % 0.1 Laboratory test 04/22/2018 [facility] Magnesium 2.0 mg/dL N 1.9-2.[address] [place] [address] [phone] Carcinoembryonic Antigen Cea 1.1 ng/mL N 0.1-5.0 29 Comp Metabolic Panel 04/22/2018 [facility] Sodium 138 mmol/L N 135-[address] [place] [address] [phone] Potassium 3.8 mmol/L N 3.5-5.0 Chloride 104 mmol/L N 101-111 Co2 Carbon Dioxide 27 mmol/L N 22-32 Anion Gap 7 mmol/L N 2-11 Glucose 115 mg/dL High 70-100 Blood Urea Nitrogen 21 mg/dL N 6-24 Creatinine 0.59 mg/dL N 0.51-0.95 BUN/Creatinine Ratio 35.6 High 8-20 Calcium 9.4 mg/dL N 8.6-10.3 Total Protein 6.6 g/dL N 6.4-8.9 Albumin 3.8 g/dL N 3.2-5.2 Globulin 2.8 g/dL N 2-4 Albumin/Globulin Ratio 1.4 N 1-3 Total Bilirubin 0.70 mg/dL N 0.2-1.0 Alkaline Phosphatase 129 U/L High 34-104 Alt 28 U/L N 7-52 Ast 35 U/L N 13-39 Egfr Non- 100.5 >60 Egfr 121.6 >60 30 Laboratory 04/08/2018 [facility] Carcinoembryonic 1.1 N 0.1- 5.0 31 test finding [address] Antigen Cea ng/mL [place], [place] [address] [phone] CBC Auto Diff 04/08/2018 [facility] White Blood Count 3.5 N 3.5-10.[address] 10^3/[place] [address] [phone] Red Blood Count 3.45 10^6/uL Low 4.00-5.40 Hemoglobin 10.5 g/dL Low 12.0-16.0 Hematocrit 31 % Low 35-47 Mean Corpuscular Volume 90 fL N 80-97 Mean Corpuscular Hemoglobin 30 pg N 27-31 Mean Corpuscular HGB Conc 34 g/dL N 31-36 Red Cell Distribution Width 18 % High 10.5-15 Platelet Count 98 10^3/uL Low 150-450 Mean Platelet Volume 7.9 fL N 7.4-10.4 Abs Neutrophils 1.3 10^3/uL Low 1.5-7.7 Abs Lymphocytes 1.8 10^3/uL N 1.0-4.8 Abs Monocytes 0.4 10^3/uL N 0-0.8 Abs Eosinophils 0.1 10^3/uL N 0-0.6 Abs Basophils 0 10^3/uL N 0-0.2 Abs Nucleated RBC 0 10^3/uL Granulocyte % 35.7 % Low 38-83 Lymphocyte % 50.1 % High 25-47 Monocyte % 11.8 % High 0-7 Eosinophil % 2.0 % N 0-6 Basophil % 0.4 % N 0-2 Nucleated Red Blood Cells % 0.1 Laboratory test 04/08/2018 [facility] Pathologist (SEE NOTE) [address] [place] [address] [phone] Comp Metabolic 04/08/2018 [facility] Sodium 136 mmol/L N 135- [address] [place] [address] [phone] Potassium 3.6 mmol/L N 3.5-5.0 Chloride 105 mmol/L N 101-111 Co2 Carbon Dioxide 25 mmol/L N 22-32 Anion Gap 6 mmol/L N 2-11 Glucose 110 mg/dL High 70-100 Blood Urea Nitrogen 20 mg/dL N 6-24 Creatinine 0.59 mg/dL N 0.51-0.95 BUN/Creatinine Ratio 33.9 High 8-20 Calcium 9.0 mg/dL N 8.6-10.3 Total Protein 6.2 g/dL Low 6.4-8.9 Albumin 3.6 g/dL N 3.2-5.2 Globulin 2.6 g/dL N 2-4 Albumin/Globulin Ratio 1.4 N 1-3 Total Bilirubin 0.60 mg/dL N 0.2-1.0 Alkaline Phosphatase 117 U/L High 34-104 Alt 32 U/L N 7-52 Ast 34 U/L N 13-39 Egfr Non- 100.5 >60 Egfr 121.6 >60 33 Laboratory test 10/12/2017 [facility] CA 125 38.7 U/mL High 0- 35 [address] ([place] [address] Cancer Ag) [phone] Afp Tumor Marker 2.4 ng/mL 35 HCG Tumor Marker <0.6 IU/L 36 CBC Auto Diff 10/12/2017 [facility] White Blood 5.3 10^3/uL N 3.5-10.[address] [place] [address] [phone] Red Blood Count 4.17 10^6/uL N 4.0-5.4 Hemoglobin 12.9 g/dL N 12.0-16.0 Hematocrit 38 % N 35-47 Mean Corpuscular Volume 92 fL N 80-97 Mean Corpuscular Hemoglobin 31 pg N 27-31 Mean Corpuscular HGB Conc 34 g/dL N 31-36 Red Cell Distribution Width 14 % N 10.5-15 Platelet Count 204 10^3/uL N 150-450 Mean Platelet Volume 9.8 um3 N 7.4-10.4 Abs Neutrophils 3.1 10^3/uL N 1.5-7.7 Abs Lymphocytes 1.7 10^3/uL N 1.0-4.8 Abs Monocytes 0.3 10^3/uL N 0-0.8 Abs Eosinophils 0.1 10^3/uL N 0-0.6 Abs Basophils 0 10^3/uL N 0-0.2 Abs Nucleated RBC 0 10^3/uL Granulocyte % 58.9 % N 38-83 Lymphocyte % 32.7 % N 25-47 Monocyte % 6.2 % N 0-7 Eosinophil % 1.6 % N 0-6 Basophil % 0.6 % N 0-2 Nucleated Red Blood Cells % 0 Comp Metabolic Panel 10/12/2017 [facility] Sodium 137 mmol/L Low 139-[address] [place] [address] [phone] Potassium 4.5 mmol/L N 3.5-5.0 Chloride 102 mmol/L N 101-111 Co2 Carbon Dioxide 28 mmol/L N 22-32 Anion Gap 7 mmol/L N 2-11 Glucose 97 mg/dL N 70-100 Blood Urea Nitrogen 19 mg/dL N 6-24 Creatinine 0.60 mg/dL N 0.51-0.95 BUN/Creatinine Ratio 31.7 High 8-20 Calcium 9.6 mg/dL N 8.6-10.3 Total Protein 6.4 g/dL N 6.4-8.9 Albumin 4.2 g/dL N 3.2-5.2 Globulin 2.2 g/dL N 2-4 Albumin/Globulin Ratio 1.9 N 1-3 Total Bilirubin 0.60 mg/dL N 0.2-1.0 Alkaline Phosphatase 78 U/L N 34-104 Alt 14 U/L N 7-52 Ast 18 U/L N 13-39 Egfr Non- 98.8 >60 Egfr 127.1 >60 37 Laboratory test 10/12/2017 [facility] Cytology SEE RESULT [address] [place] [address] [phone] Basic Metabolic 08/25/2017 [facility] Sodium 136 mmol/L N 133- 145 [address] [place] [address] [phone] Potassium 4.0 mmol/L N 3.5-5.0 Chloride 102 mmol/L N 101-111 Co2 Carbon Dioxide 32 mmol/L N 22-32 Anion Gap 2 mmol/L N 2-11 Glucose 80 mg/dL N 70-100 Blood Urea Nitrogen 17 mg/dL N 6-24 Creatinine 0.61 mg/dL N 0.51-0.95 BUN/Creatinine Ratio 27.9 High 8-20 Calcium 9.6 mg/dL N 8.6-10.3 Egfr Non- 97.0 >60 Egfr 124.7 >60 40 Laboratory test 08/25/2017 [facility] Uric Acid 3.6 mg/dL N 2.3-6.[address] [place] [address] [phone] Laboratory test 07/17/2017 [facility] Surgical SEE RESULT 42 finding [address] [place] [address] [phone] Lipid Profile 06/29/2017 [facility] Triglycerides 95 mg/dL 43 (Trig/Chol/HDL) [address] [place] [address] [phone] Cholesterol 213 mg/dL 44 HDL Cholesterol 54.1 mg/dL 45 LDL Cholesterol 140 mg/dL 46 Comp Metabolic Panel 06/29/2017 [facility] Sodium 137 mmol/L N 133-145 [place] [address] [phone] Potassium 4.4 mmol/L N 3.5-5.0 Chloride 102 mmol/L N 101-111 Co2 Carbon Dioxide 30 mmol/L N 22-32 Anion Gap 5 mmol/L N 2-11 Glucose 82 mg/dL N 70-100 Blood Urea Nitrogen 19 mg/dL N 6-24 Creatinine 0.70 mg/dL N 0.51-0.95 BUN/Creatinine Ratio 27.1 High 8-20 Calcium 9.5 mg/dL N 8.6-10.3 Total Protein 6.3 g/dL Low 6.4-8.9 Albumin 4.1 g/dL N 3.2-5.2 Globulin 2.2 g/dL N 2-4 Albumin/Globulin Ratio 1.9 N 1-3 Total Bilirubin 0.70 mg/dL N 0.2-1.0 Alkaline Phosphatase 68 U/L N 34-104 Alt 12 U/L N 7-52 Ast 17 U/L N 13-39 Egfr Non- 82.7 >60 Egfr 106.4 >60 47 Laboratory test 06/29/2017 [facility] TSH (Thyroid 2.49 mcIU/mL N 0.34-5.[address] Stim Horm) [place] [address] [phone] Laboratory test 06/01/2016 [facility] Troponin-I 0.02 ng/mL N <0.04 [address] (TnI) [place] [address] [phone] Laboratory test 05/31/2016 [facility] Troponin-I 0.01 ng/mL N <0.[address] (TnI) [place] [address] [phone] Comp Metabolic 05/31/2016 [facility] Sodium 133 mmol/L N 133- [address] [place] [address] [phone] Potassium 3.9 mmol/L N 3.5-5.0 Chloride 98 mmol/L Low 101-111 Co2 Carbon Dioxide 30 mmol/L N 22-32 Anion Gap 5 mmol/L N 2-11 Glucose 106 mg/dL High 70-100 Blood Urea Nitrogen 22 mg/dL N 6-24 Creatinine 0.71 mg/dL N 0.51-0.95 BUN/Creatinine Ratio 31.0 High 8-20 Calcium 9.5 mg/dL N 8.6-10.3 Total Protein 6.6 g/dL N 6.4-8.9 Albumin 3.9 g/dL N 3.2-5.2 Globulin 2.7 g/dL N 2-4 Albumin/Globulin Ratio 1.4 N 1-3 Total Bilirubin 0.40 mg/dL N 0.2-1.0 Alkaline Phosphatase 144 U/L High 34-104 Alt 36 U/L N 7-52 Ast 21 U/L N 13-39 Egfr Non- 81.6 N >60 Egfr 105.0 N >60 50 CBC Auto Diff 05/31/2016 [facility] White Blood 9.3 10^3/uL N 3.5-10.[address] [place] [address] [phone] Red Blood Count 3.96 10^6/uL Low 4.0-5.4 Hemoglobin 12.0 g/dL N 12.0-16.0 Hematocrit 37 % N 35-47 Mean Corpuscular Volume 93 fL N 80-97 Mean Corpuscular Hemoglobin 30 pg N 27-31 Mean Corpuscular HGB Conc 33 g/dL N 31-36 Red Cell Distribution Width 15 % N 10.5-15 Platelet Count 369 10^3/uL N 150-450 Mean Platelet Volume 9 um3 N 7.4-10.4 Abs Neutrophils 5.9 10^3/uL N 1.5-7.7 Abs Lymphocytes 2.5 10^3/uL N 1.0-4.8 Abs Monocytes 0.6 10^3/uL N 0-0.8 Abs Eosinophils 0.1 10^3/uL N 0-0.6 Abs Basophils 0.1 10^3/uL N 0-0.2 Abs Nucleated RBC 0 10^3/uL N Granulocyte % 64.1 % N 38-83 Lymphocyte % 27.0 % N 25-47 Monocyte % 6.2 % N 1-9 Eosinophil % 1.4 % N 0-6 Basophil % 1.3 % N 0-2 Nucleated Red Blood Cells % 0 N Urinalysis Profile 05/31/2016 [facility] Urine Color Yellow N [address] [place] [address] [phone] Urine Appearance Cloudy N Urine Specific Elmo 1.016 N 1.010-1.030 Urine pH 5.0 N 5-9 Urine Urobilinogen Negative N Negative Urine Ketones Negative N Negative Urine Protein Negative N Negative Urine Leukocytes Negative N Negative Urine Blood Negative N Negative * * Abnormal Negative 51 Urine Nitrite Negative N Negative Urine Bilirubin Negative N Negative Urine Glucose Negative N Negative Laboratory test 05/31/2016 [facility] Lactic Acid 0.6 mmol/L N 0.5-2.0 52 finding [address] [place] [address] [phone] TSH (Thyroid Stim Horm) 2.70 mcIU/mL N 0.34-5.60 Laboratory test finding 04/25/2016 [facility] Ast (Sgot) 15 U/L N 13-39 [address] [place] [address] [phone] Alt (SGPT) 13 U/L N 7-52 Lipid Profile 04/25/2016 [facility] Triglycerides 88 mg/dL N 53 (Trig/Chol/HDL) [address] [place] [address] [phone] Cholesterol 207 mg/dL N 54 HDL Cholesterol 54.5 mg/dL N 55 LDL Cholesterol 135 mg/dL N 56 Inr/Protime 04/20/2016 [facility] Inr 0.89 N 0.89-1.11 [address] [place] [address] [phone] Urine Culture And 04/20/2016 [facility] Urine SEE RESULT [address] [place] [address] [phone] Comp Metabolic 04/20/2016 [facility] Sodium 136 mmol/L N 133- [address] [place] [address] [phone] Potassium 4.3 mmol/L N 3.5-5.0 Chloride 101 mmol/L N 101-111 Co2 Carbon Dioxide 31 mmol/L N 22-32 Anion Gap 4 mmol/L N 2-11 Glucose 73 mg/dL N 70-100 Blood Urea Nitrogen 22 mg/dL N 6-24 Creatinine 0.62 mg/dL N 0.51-0.95 BUN/Creatinine Ratio 35.5 High 8-20 Calcium 9.5 mg/dL N 8.6-10.3 Total Protein 6.2 g/dL Low 6.4-8.9 Albumin 4.0 g/dL N 3.2-5.2 Globulin 2.2 g/dL N 2-4 Albumin/Globulin Ratio 1.8 N 1-3 Total Bilirubin 0.60 mg/dL N 0.2-1.0 Alkaline Phosphatase 66 U/L N 34-104 Alt 14 U/L N 7-52 Ast 18 U/L N 13-39 Egfr Non- 95.4 N >60 Egfr 122.7 N >60 58 CBC Auto Diff 04/12/2016 [facility] White Blood 6.0 10^3/uL N 3.5-10.[address] [place] [address] [phone] Red Blood Count 4.06 10^6/uL N 4.0-5.4 Hemoglobin 12.4 g/dL N 12.0-16.0 Hematocrit 38 % N 35-47 Mean Corpuscular Volume 93 fL N 80-97 Mean Corpuscular Hemoglobin 30 pg N 27-31 Mean Corpuscular HGB Conc 33 g/dL N 31-36 Red Cell Distribution Width 14 % N 10.5-15 Platelet Count 212 10^3/uL N 150-450 Mean Platelet Volume 11 um3 High 7.4-10.4 Abs Neutrophils 3.1 10^3/uL N 1.5-7.7 Abs Lymphocytes 2.4 10^3/uL N 1.0-4.8 Abs Monocytes 0.3 10^3/uL N 0-0.8 Abs Eosinophils 0.1 10^3/uL N 0-0.6 Abs Basophils 0 10^3/uL N 0-0.2 Abs Nucleated RBC 0.01 10^3/uL N Granulocyte % 52.4 % N 38-83 Lymphocyte % 39.5 % N 25-47 Monocyte % 5.5 % N 1-9 Eosinophil % 1.8 % N 0-6 Basophil % 0.8 % N 0-2 Nucleated Red Blood Cells % 0.1 N Laboratory test 04/12/2016 [facility] Ferritin 23.4 ng/mL N 11 -307 59 finding [address] [place] [address] [phone] Iron & Iron Binding 04/12/2016 [facility] Iron 58 g/dL N 50- 212 [address]acity [address] [place] [address] [phone] Unsaturated Iron Binding 335 g/dL N Total Iron Binding Capacity 393 g/dL N 250-450 % Iron Saturation 15 % N 15-55 Laboratory test 04/12/2016 [facility] Albumin 3.9 g/dL N 3.2- 5.2 60 finding [address] [place] [address] [phone] Lipid Profile 12/07/2015 [facility] Triglycerides 56 mg/dL N 61 (Trig/Chol/HDL) [address] [place] [address] [phone] Cholesterol 214 mg/dL N 62 HDL Cholesterol 55.9 mg/dL N 63 LDL Cholesterol 147 mg/dL N 64 Comp Metabolic Panel 12/07/2015 [facility] Sodium 134 mmol/L N 133-145 [address] [place] [address] [phone] Potassium 4.3 mmol/L N 3.5-5.0 Chloride 100 mmol/L Low 101-111 Co2 Carbon Dioxide 30 mmol/L N 22-32 Anion Gap 4 mmol/L N 2-11 Glucose 83 mg/dL N 70-100 Blood Urea Nitrogen 19 mg/dL N 6-24 Creatinine 0.72 mg/dL N 0.51-0.95 BUN/Creatinine Ratio 26.4 High 8-20 Calcium 9.3 mg/dL N 8.6-10.3 Total Protein 6.1 g/dL Low 6.4-8.9 Albumin 3.9 g/dL N 3.2-5.2 Globulin 2.2 g/dL N 2-4 Albumin/Globulin Ratio 1.8 N 1-3 Total Bilirubin 0.70 mg/dL N 0.2-1.0 Alkaline Phosphatase 61 U/L N 34-104 Alt 13 U/L N 7-52 Ast 12 U/L Low 13-39 Egfr Non- 80.3 N >60 Egfr 103.3 N >60 65 Laboratory test 12/07/2015 [facility] CRP High 0.23 mg/L N [address] [place] [address] [phone] CBC No Diff 03/22/2015 [facility] White Blood Count 5.6 N 4.8- [address] 10^3/uL .8 [place] [address] [phone] Red Blood Count 4.19 10^6/uL N 4.0-5.4 Hemoglobin 12.9 g/dL N 12.0-16.0 Hematocrit 39 % N 35-47 Mean Corpuscular Volume 94 fL N 80-97 Mean Corpuscular Hemoglobin 31 pg N 27-31 Mean Corpuscular HGB Conc 33 g/dL N 31-36 Red Cell Distribution Width 14 % N 10.5-15 Platelet Count 189 10^3/uL N 150-450 Mean Platelet Volume 10 um3 N 7.4-10.4 Laboratory test 03/22/2015 [facility] C Reactive < 1.00 N < 5.00 [address] Protein mg/[place] [address] [phone] Erythrocyte Sed Rate 13 mm/Hr N 0-40 Comp Metabolic Panel 02/12/2015 Sodium 136 mmol/L N 133-145 Potassium 4.2 mmol/L N 3.5-5.0 Chloride 102 mmol/L N 101-111 Co2 Carbon Dioxide 30 mmol/L N 22-32 Anion Gap 4 mmol/L N 2-11 Glucose 84 mg/dL N 70-100 Blood Urea Nitrogen 16 mg/dL N 6-24 Creatinine 0.64 mg/dL N 0.51-0.95 BUN/Creatinine Ratio 25.0 High 8-20 Calcium 9.2 mg/dL N 8.6-10.3 Total Protein 6.2 g/dL Low 6.4-8.9 Albumin 4.2 g/dL N 3.2-5.2 Globulin 2.0 g/dL N 2-4 Albumin/Globulin Ratio 2.1 N 1-3 Total Bilirubin 0.60 mg/dL N 0.2-1.0 Alkaline Phosphatase 72 U/L N 34-104 Alt 11 U/L N 7-52 Ast 15 U/L N 13-39 Egfr Non- 92.3 N >60 Egfr 118.7 N >60 68 Lipid Profile (Trig/Chol/HDL) 02/12/2015 Triglycerides 97 mg/dL N 69 Cholesterol 178 mg/dL N 70 HDL Cholesterol 51.1 mg/dL N 71 LDL Cholesterol 108 mg/dL N 72 Order 11/20/2014 [employer] [facility] In-House peak flow x 3 425, 450, 450 CBC No Diff 07/24/2014 [facility] White Blood 5.8 10^3/uL N 4.8-10.[address] [place] [address] [phone] Red Blood Count 4.12 10^6/uL N 4.0-5.4 Hemoglobin 13.0 g/dL N 12.0-16.0 Hematocrit 39 % N 35-47 Mean Corpuscular Volume 94 fL N 80-97 Mean Corpuscular Hemoglobin 32 pg High 27-31 Mean Corpuscular HGB Conc 34 g/dL N 31-36 Red Cell Distribution Width 14 % N 10.5-15 Platelet Count 179 10^3/uL N 150-450 Mean Platelet Volume 10 um3 N 7.4-10.4 Stool For 04/08/2014 [facility] In House Miscellaneous Lab neg x 3 Blood Laboratory 03/17/2014 [facility] Hepatitis C Nonreactive N Nonreactive test finding [address] [place] [address] [phone] Lipid Profile 03/12/2014 [facility] Triglycerides 89 mg/dL N 73, (Trig/Chol/HDL [address] ) [place] [address] [phone] Cholesterol 166 mg/dL N 75 HDL Cholesterol 51.6 mg/dL N 76 LDL Cholesterol 97 mg/dL N 77 Comp Metabolic Panel 03/12/2014 [facility] Sodium 136 mmol/L N 133-[address] [place] [address] [phone] Potassium 4.1 mmol/L N 3.7-5.6 Chloride 103 mmol/L N 101-111 Co2 Carbon Dioxide 28 mmol/L N 22-32 Anion Gap 5 mmol/L N 2-11 Glucose 83 mg/dL N 70-100 Blood Urea Nitrogen 14 mg/dL N 6-24 Creatinine 0.58 mg/dL N 0.51-0.95 BUN/Creatinine Ratio 24.1 High 8-20 Calcium 9.1 mg/dL N 8.6-10.3 Total Protein 6.2 g/dL Low 6.4-8.9 Albumin 4.1 g/dL N 3.2-5.2 Globulin 2.1 g/dL N 2-4 Albumin/Globulin Ratio 2.0 N 1-3 Total Bilirubin 0.70 mg/dL N 0.2-1.0 Alkaline Phosphatase 68 U/L N 34-104 Alt 15 U/L N 7-52 Ast 16 U/L N 13-39 Egfr Non- 103.7 N >60 Egfr 133.4 N >60 78 Laboratory test 03/12/2014 [facility] Lyme Disease Negative N Negative [address] [place] [address] [phone] Vitamin D, 25 03/12/2014 [facility] 25-Hydroxy <4.0 ng/mL N Hydroxy [address] [facility] Vitamin D2 [place] [address] [phone] 25-Hydroxy Vitamin D3 36 ng/mL N 25-Hydroxy Vitamin D Total 36 ng/mL N 80 Comp Metabolic Panel 03/10/2013 [facility] Sodium 138 mmol/L 133-[address] [place] [address] [phone] Potassium 4.1 mmol/L 3.5-5.0 Chloride 103 mmol/L 101-111 Co2 Carbon Dioxide 31.0 mmol/L 22-32 Anion Gap 4.0 mmol/L 2-11 Glucose 86 mg/dL 70-100 Blood Urea Nitrogen 13 mg/dL 6-24 Creatinine 0.60 mg/dL 0.50-1.40 BUN/Creatinine Ratio 21.7 High 8-20 Calcium 9.3 mg/dL 8.1-9.9 Total Protein 6.4 g/dL 6.2-8.1 Albumin 3.9 g/dL 3.2-5.2 Globulin 2.5 g/dL 2-4 Albumin/Globulin Ratio 1.6 1-3 Total Bilirubin 0.9 mg/dL 0.4-1.5 Alkaline Phosphatase 69 U/L 30-110 Alt 20 U/L 14-54 Ast 19 U/L 12-42 Egfr Non- 100.0 >60 Egfr 128.6 >60 81 Lipid Profile 03/10/2013 [facility] Triglycerides 102 mg/dL 40-200 (Trig/Chol/HDL) [address] [place] [address] [phone] Cholesterol 189 mg/dL Less than 200 HDL Cholesterol 57 mg/dL 40-60 82 Cholesterol/HDL Ratio 3.3 Average 1-4.44 LDL Cholesterol 111.6 High Less Than 100 83 Lipid Profile 11/19/2012 [facility] Triglycerides 90 mg/dL 40 -200 (Trig/Chol/HDL) [address] [place] [address] [phone] Cholesterol 165 mg/dL Less than 200 HDL Cholesterol 49 mg/dL 40-60 84 Cholesterol/HDL Ratio 3.4 Average 1-4.44 LDL Cholesterol 98.0 Less Than 100 85 Comp Metabolic Panel 06/17/2012 [facility] Sodium 135 mmol/L 133-145 [address] [place] [address] [phone] Potassium 3.6 mmol/L 3.5-5.0 Chloride 102 mmol/L 101-111 Co2 Carbon Dioxide 29.0 mmol/L 22-32 Anion Gap 4.0 mmol/L 2-11 Glucose 96 mg/dL 70-100 Blood Urea Nitrogen 18 mg/dL 6-24 Creatinine 0.70 mg/dL 0.50-1.40 BUN/Creatinine Ratio 25.7 High 8-20 Calcium 9.4 mg/dL 8.1-9.9 Total Protein 6.9 g/dL 6.2-8.1 Albumin 4.2 g/dL 3.2-5.2 Globulin 2.7 g/dL 2-4 Albumin/Globulin Ratio 1.6 1-3 Total Bilirubin 0.6 mg/dL 0.4-1.5 Alkaline Phosphatase 73 U/L 30-110 Alt 23 U/L 14-54 Ast 23 U/L 12-42 Egfr Non- 84.0 >60 Egfr 108.0 >60 86 CBC Auto Diff 06/17/2012 [facility] White Blood 7.1 10^3/uL 4.8-10.[address] [place] [address] [phone] Red Blood Count 4.26 10^6/uL 4.0-5.4 Hemoglobin 13.5 g/dL 12.0-16.0 Hematocrit 40 % 35-47 Mean Corpuscular Volume 93 fL 80-97 Mean Corpuscular Hemoglobin 32 pg High 27-31 Mean Corpuscular HGB Conc 34 g/dL 31-36 Red Cell Distribution Width 14 % 10.5-15 Platelet Count 193 10^3/uL 150-450 Mean Platelet Volume 11 um3 High 7.4-10.4 Abs Neutrophils 3.9 10^3/uL 1.5-7.7 Abs Lymphocytes 2.6 10^3/uL 1.0-4.8 Abs Monocytes 0.4 10^3/uL 0-0.8 Abs Eosinophils 0.1 10^3/uL 0-0.6 Abs Basophils 0 10^3/uL 0-0.2 Abs Nucleated RBC 0 10^3/uL Granulocyte % 54.7 % 38-83 Lymphocyte % 37.1 % 25-47 Monocyte % 5.4 % 1-9 Eosinophil % 2.1 % 0-6 Basophil % 0.7 % 0-2 Nucleated Red Blood Cells % 0 Surgical Pathology 05/31/2012 [facility] S RUN DATE: [address] 06/05/ <[place] [address] NOTE> [phone] Laboratory test 12/11/2011 [facility] TSH 1.87 MIU/ML 0.34- 5. finding [address] [place] [address] [phone] Comp Metabolic 12/11/2011 [facility] Sodium 133 mmol/L Low 135 -[address] [place] [address] [phone] Potassium 4.7 mmol/L 3.5-5.0 Chloride 98 mmol/L Low 101-111 Co2 (Carbon Dioxide) 30.0 mmol/L 22-32 Anion Gap 5.0 mmol/L 2-11 88 Glucose 78 mg/dL 70-100 BUN 13 mg/dL 6-24 Creatinine 0.6 mg/dL 0.50-1.40 One Over Creatinine 1.66 BUN/Creatinine Ratio 21.7 High 8-20 Calcium 9.4 mg/dL 8.1-9.9 Total Protein 6.1 GM/DL Low 6.2-8.1 Albumin 4.0 GM/DL 3.2-5.2 Globulin 2.1 GM/DL 2-4 Albumin/Globulin Ratio 1.9 1-3 Bilirubin Total 0.7 mg/dL 0.4-1.5 89 Alkaline Phosphatase 63 U/L 30-110 Alt (SGPT) 17 U/L 14-54 Ast (Sgot) 21 U/L 12-42 eGFR Non- 100.3 > 60 eGFR 129.0 > 60 90 CBC Auto Diff 12/11/2011 [facility] White Blood 6.8 CUMM 4.8- 10.[address] [place] [address] [phone] Red Cell Count 4.03 CUMM Low 4.2-5.4 Hemoglobin 12.6 g/dL 12.0-16.0 Hematocrit 37 % 35-47 Mean Corpuscular Volume 93 um3 79-97 Mean Corpuscular Hemoglob 31 pg 27-31 Mean Corpuscular HGB Cone 34 g/dL 32-36 Redcell Distribution WDTH 14 % 10.5-15 Platelet Count 193 CUMM 150-450 Mean Platelet Volume 11.7 um3 High 7.4-10.4 Gran % 52.5 % 38-83 Lymph % 37.9 % 25-47 Mononuclear % 6.1 % 1-9 Eosinophil % 3.1 % 0-6 Basophil % 0.4 % 0-2 Abs Lymphs 2.6 1.0-4.8 Abs Mononuclear 0.4 0-0.8 Absolute Neutrophil Count 3.6 1.5-7.7 Abs Eosinophils 0.2 0-0.6 Abs Basophils 0 0-0.2 Lipid Profile 10/21/2011 [facility] Triglyceride 73 mg/dL 40- 200 (Trig/Chol/HDL) [address] [place] [address] [phone] Cholesterol 159 mg/dL Less Than 200 91 High Density Lipoprotein 42 mg/dL 40-60 92 Cholesterol/HDL Ratio 3.79 AVERAGE 1-4.44 Low Density Lipoprotein 102 mg/dL High Less Than 100 93 Laboratory test 10/21/2011 [facility] Varicella Zoster Positive () [address] [place] [address] [phone] Lipid Profile 07/25/2011 [facility] Triglyceride 115 mg/dL 40 -200 95 (Trig/Chol/HDL) [address] [place], [place] [id number] [phone] Cholesterol 196 mg/dL Less Than 200 96 High Density Lipoprotein 48 mg/dL 40-60 97 Cholesterol/HDL Ratio 4.08 AVERAGE 1-4.44 Low Density Lipoprotein 125 mg/dL High Less Than 100 98 Laboratory test 07/25/2011 [facility] CPK (Creatine 48 U/L 0- [address] Kinase) [place] [address] [phone] Vitamin D, 25 07/25/2011 [facility] 25-Hydroxy <4.0 ng/mL () Hydroxy [address] Vitamin [place]2 [place] [address] [phone] 25-Hydroxy Vitamin D3 35 ng/mL () 25-Hydroxy Vitamin D Total 35 ng/mL () 99 Laboratory test finding 07/25/2011 [facility] Ast (Sgot) 21 U/L 12-[address] [place] [address] [phone] Alt (SGPT) 19 U/L 14-54 Laboratory test 02/02/2011 [facility] CPK (Creatine 59 U/L 0- [address] Kinase) [place] [address] [phone] Herpes Simplex 01/27/2011 [facility] Herpes Simplex POSITIVE Negative Type 1&[address] Type 1 [place] [address] [phone] Herpex Simplex Type 2 Igg POSITIVE Negative 100 Laboratory test 01/27/2011 [facility] TSH 3.16 MIU/ML 0.34- 5.[address] [place] [address] [phone] Lipid Profile 01/27/2011 [facility] Triglyceride 133 mg/dL 40 -200 (Trig/Chol/HDL) [address] [place], [place] [id number] [phone] Cholesterol 188 mg/dL Less Than 200 101 High Density Lipoprotein 43 mg/dL 40-60 102 Cholesterol/HDL Ratio 4.37 AVERAGE 1-4.44 Low Density Lipoprotein 118 mg/dL High Less Than 100 103 Comp Metabolic Panel 01/27/2011 [facility] Sodium 137 mmol/L 135-[address] [place] [address] [phone] Potassium 4.3 mmol/L 3.5-5.0 Chloride 102 mmol/L 101-111 Co2 (Carbon Dioxide) 31.0 mmol/L 22-32 Anion Gap 4.0 mmol/L 2-11 104 Glucose 83 mg/dL 70-100 BUN 11 mg/dL 6-24 Creatinine 0.6 mg/dL 0.50-1.40 One Over Creatinine 1.66 BUN/Creatinine Ratio 18.3 8-20 Calcium 9.4 mg/dL 8.1-9.9 Total Protein 6.3 GM/DL 6.2-8.1 Albumin 3.9 GM/DL 3.2-5.2 Globulin 2.4 GM/DL 2-4 Albumin/Globulin Ratio 1.6 1-3 Bilirubin Total 1.2 mg/dL 0.4-1.5 105 Alkaline Phosphatase 77 U/L 30-110 Alt (SGPT) 18 U/L 14-54 Ast (Sgot) 20 U/L 12-42 eGFR Non- 100.6 > 60 eGFR 129.4 > 60 106 CBC Auto Diff 01/27/2011 [facility] White Blood 5.8 CUMM 4.8- 10.[address] [place] [address] [phone] Red Cell Count 4.05 CUMM Low 4.2-5.4 Hemoglobin 13.2 g/dL 12.0-16.0 Hematocrit 37 % 35-47 Mean Corpuscular Volume 92 um3 79-97 Mean Corpuscular Hemoglob 33 pg High 27-31 Mean Corpuscular HGB Cone 36 g/dL 32-36 Redcell Distribution WDTH 13 % 10.5-15 Platelet Count 177 CUMM 150-450 Mean Platelet Volume 9.5 um3 7.4-10.4 Gran % 51.4 % 38-83 Lymph % 39.4 % 25-47 Mononuclear % 5.7 % 1-9 Eosinophil % 2.3 % 0-6 Basophil % 1.2 % 0-2 Abs Lymphs 2.3 1.0-4.8 Abs Mononuclear 0.3 0-0.8 Absolute Neutrophil Count 3.0 1.5-7.7 Abs Eosinophils 0.1 0-0.6 Abs Basophils 0.1 0-0.2 Lipid Profile 09/09/2010 [facility] Triglyceride 126 mg/dL 40 -200 (Trig/Chol/HDL) [address] [place] [address] [phone] Cholesterol 182 mg/dL Less Than 200 107 High Density Lipoprotein 50 mg/dL 40-60 108 Cholesterol/HDL Ratio 3.64 AVERAGE 1-4.44 Low Density Lipoprotein 107 mg/dL High Less Than 100 109 Laboratory test finding 09/09/2010 [facility] Alt (SGPT) 17 U/L 14-[address] [place] [address] [phone] Ast (Sgot) 19 U/L 12-42 CBC With 03/08/2010 [facility] White Blood 5.9 CUMM 4.8-10.8 Electronic Diff [address] [place] [address] [phone] Red Cell Count 4.02 CUMM Low 4.2-5.4 Hemoglobin 12.6 g/dL 12.0-16.0 Hematocrit 37 % 35-47 Mean Corpuscular Volume 91 um3 79-97 Mean Corpuscular Hemoglob 32 pg High 27-31 Mean Corpuscular HGB Cone 35 g/dL 32-36 Redcell Distribution WDTH 14 % 10.5-15 Platelet Count 201 CUMM 150-450 Mean Platelet Volume 8.6 um3 7.4-10.4 Gran % 53.5 % 38-83 Lymph % 37.6 % 25-47 Mononuclear % 6.6 % 1-9 Eosinophil % 1.9 % 0-6 Basophil % 0.4 % 0-2 Abs Lymphs 2.2 1.0-4.8 Abs Mononuclear 0.4 0-0.8 Absolute Neutrophil Count 3.1 1.5-7.7 Abs Eosinophils 0.1 0-0.6 Abs Basophils 0 0-0.2 Comp Metabolic Panel 03/08/2010 [facility] Sodium 138 mmol/L 135-[address] [place] [address] [phone] Potassium 4.0 mmol/L 3.5-5.0 Chloride 103 mmol/L 101-111 Co2 (Carbon Dioxide) 27.0 mmol/L 22-32 Anion Gap 8.0 mmol/L 2-11 110 Glucose 89 mg/dL 70-100 111 BUN 11 mg/dL 6-24 Creatinine 0.50 mg/dL 0.50-1.40 One Over Creatinine 2.00 BUN/Creatinine Ratio 22.0 High 8-20 Calcium 9.3 mg/dL 8.1-9.9 Total Protein 6.1 GM/DL Low 6.2-8.1 Albumin 4.1 GM/DL 3.2-5.2 Globulin 2.0 GM/DL 2-4 Albumin/Globulin Ratio 2.1 1-3 Bilirubin Total 0.8 mg/dL 0.4-1.5 112 Alkaline Phosphatase 72 U/L 30-110 Alt (SGPT) 18 U/L 14-54 Ast (Sgot) 24 U/L 12-42 eGFR Non- 132.4 > 60 eGFR 160.3 > 60 113 Lipid Profile 03/08/2010 [facility] Triglyceride 111 mg/dL 40 -200 (Trig/Chol/HDL) [address] [place] [address] [phone] Cholesterol 173 mg/dL Less Than 200 114 High Density Lipoprotein 41 mg/dL 40-60 115 Cholesterol/HDL Ratio 4.22 AVERAGE 1-4.44 Low Density Lipoprotein 110 mg/dL High Less Than 100 116 Laboratory test 01/27/2010 [facility] Troponin-I 0 NG/ML 117, [address] (TnI) [place] [address] [phone] CBC With 01/26/2010 [facility] White Blood 7.6 CUMM 4.8-1 Electronic Diff [address] Count 0.8 [place] [address] [phone] Red Cell Count 3.95 CUMM Low 4.2-5.4 Hemoglobin 12.7 g/dL 12.0-16.0 Hematocrit 36 % 35-47 Mean Corpuscular Volume 90 um3 79-97 Mean Corpuscular Hemoglob 32 pg High 27-31 Mean Corpuscular HGB Cone 36 g/dL 32-36 Redcell Distribution WDTH 13 % 10.5-15 Platelet Count 184 CUMM 150-450 Mean Platelet Volume 8.5 um3 7.4-10.4 Gran % 55.9 % 38-83 Lymph % 34.0 % 25-47 Mononuclear % 7.3 % 1-9 Eosinophil % 2.3 % 0-6 Basophil % 0.5 % 0-2 Abs Lymphs 2.6 1.0-4.8 Abs Mononuclear 0.6 0-0.8 Absolute Neutrophil Count 4.2 1.5-7.7 Abs Eosinophils 0.2 0-0.6 Abs Basophils 0 0-0.2 Urinalysis 01/26/2010 [facility] Ua Color YELLOW Yellow [address] [place] [address] [phone] Appearance-Urine CLEAR Clear Specific Elmo-Ur 1.010 1.010-1.030 Esterase-Urine NEGATIVE Negative Nitrite NEGATIVE Negative [id number] NEGATIVE Negative Protein-Urine NEGATIVE Negative PH-Urine 5.0 5-9 Blood-Urine NEGATIVE Negative Ketones-Urine NEGATIVE Negative Bilirubin-Ur NEGATIVE Negative Glucose-Urine NEGATIVE Negative Comp Metabolic Panel 01/26/2010 [facility] Sodium 136 mmol/L 135-145 [address] [place] [address] [phone] Potassium 3.8 mmol/L 3.5-5.0 Chloride 100 mmol/L Low 101-111 Co2 (Carbon Dioxide) 28.0 mmol/L 22-32 Anion Gap 8.0 mmol/L 2-11 119 Glucose 98 mg/dL 70-100 120 BUN 17 mg/dL 6-24 Creatinine 0.70 mg/dL 0.50-1.40 One Over Creatinine 1.40 BUN/Creatinine Ratio 24.3 High 8-20 Calcium 9.5 mg/dL 8.1-9.9 121 Total Protein 5.8 GM/DL Low 6.2-8.1 Albumin 3.8 GM/DL 3.2-5.2 Globulin 2.0 GM/DL 2-4 Albumin/Globulin Ratio 1.9 1-3 Bilirubin Total 0.7 mg/dL 0.4-1.5 122 Alkaline Phosphatase 68 U/L 30-110 Alt (SGPT) 21 U/L 14-54 Ast (Sgot) 22 U/L 12-42 eGFR Non- 89.8 > 60 eGFR 108.7 > 60 123 Laboratory test 01/26/2010 [facility] Troponin-I (TnI) 0.03 NG/ ML 124 finding [address] [place] [address] [phone] Total Protein 12/14/2009 [facility] Total Protein 8 mg/dL 24HR Urine [address] [place] [address] [phone] Urine Total Protein/24HR 180 MG/24HR High 50-100 Creatinine 12/14/2009 [facility] Creatinine Random 52.87 mg/dL Clearance [address] [place] [address] [phone] Creat Clearance 138 mL/min High 80-125 Hours Of Collection 24 HR 24- Urine Volume Measurement 2250 ML Basic Metabolic 12/14/2009 [facility] Sodium 131 mmol/L Low 135-145 Panel 101 [place] [address] [phone] Potassium 3.7 mmol/L 3.5-5.0 Chloride 94 mmol/L Low 101-111 Co2 (Carbon Dioxide) 30.0 mmol/L 22-32 Anion Gap 7.0 mmol/L 2-11 125 Glucose 95 mg/dL 70-100 126 BUN 9 mg/dL 6-24 Creatinine 0.80 mg/dL 0.50-1.40 One Over Creatinine 1.20 BUN/Creatinine Ratio 11.3 8-20 Calcium 9.3 mg/dL 8.1-9.9 127 eGFR Non- 77.0 > 60 eGFR 93.2 > 60 128 Lipid Profile 11/03/2009 [facility] Triglyceride 156 mg/dL 40 -200 129 (Trig/Chol/HDL) [address] [place] [address] [phone] Cholesterol 189 mg/dL Less Than 200 130 High Density Lipoprotein 37 mg/dL Low 40-60 131 Cholesterol/HDL Ratio 5.11 AVERAGE High 1-4.44 Low Density Lipoprotein 121 mg/dL High Less Than 100 132 Basic Metabolic Panel 12/11/2008 [facility] Sodium 139 mmol/L 135-145 [address] [place] [address] [phone] Potassium 3.9 mmol/L 3.5-5.0 Chloride 102 mmol/L 101-111 Co2 (Carbon Dioxide) 27.0 mmol/L 22-32 Anion Gap 10.0 mmol/L 2-11 133 Glucose 120 mg/dL High 70-100 134 BUN 10 mg/dL 6-24 Creatinine 0.60 mg/dL 0.50-1.40 One Over Creatinine 1.60 BUN/Creatinine Ratio 16.7 8-20 Calcium 9.5 mg/dL 8.1-9.9 135 eGFR Non- 107.7 > 60 eGFR 130.3 > 60 136 Creatinine 12/11/2008 [facility] Creatinine Random 42.52 mg/dL Clearance [address] [place] [address] [phone] Serum Creatinine/Creat CL 0.60 mg/dL 0.5-1.4 Creat Clearance 123 mL/min 80-125 Hours Of Collection 24 HR 24- Urine Volume Measurement 2500 ML Total Protein 24HR 12/11/2008 [facility] Total Protein 13 mg/dL Urine [address] [place] [address] [phone] Urine Total Protein/24HR 325 MG/24HR High 50-100 Lipid Profile 11/16/2007 [facility] Triglyceride 138 mg/dL 40 -200 (Trig/Chol/HDL) [address] [place] [address] [phone] Cholesterol 183 mg/dL Less Than 200 137 High Density Lipoprotein 41 mg/dL 40-60 138 Cholesterol/HDL Ratio 4.46 AVERAGE High 1-4.44 Low Density Lipoprotein 114 mg/dL High Less Than 100 139 Liver Function 11/16/2007 [facility] Total Protein 6.2 GM/DL 6.2-8.1 Panel [address] [place] [address] [phone] Albumin 3.6 GM/DL 3.2-5.2 Globulin 2.6 GM/DL 2-4 Albumin/Globulin Ratio 1.4 1-3 Bilirubin Total 0.6 mg/dL 0.4-1.5 Bilirubin Direct 0.1 mg/dL 0.1-0.5 Indirect Bilirubin 0.5 mg/dL 0.1-0.75 Alkaline Phosphatase 70 U/L 30-110 Alt (SGPT) 18 U/L 14-54 Ast (Sgot) 20 U/L 12-42 Laboratory test 11/16/2007 [facility] TSH 2.01 MIU/ML 0.34- 5.[address] [place] [address] [phone] 1 FASTING 2 Because ethnic data is not always readily available, this report includes an eGFR for both -Americans and non- Americans. The National Kidney Disease Education Program (NKDEP) does not endorse the use of the MDRD equation for patients that are not between the ages of 18 and 70, are , have extremes of body size, muscle mass, or nutritional status, or are non- or non-. According to the National Kidney Foundation, irrespective of diagnosis, the stage of the disease is based on the level of kidney function: Stage Description GFR(mL/min/1.73 m(2)) 1 Kidney damage with normal or decreased GFR 90 2 Kidney damage with mild decrease in GFR 60-89 3 Moderate decrease in GFR 30-59 4 Severe decrease in GFR 15-29 5 Kidney failure <15 (or dialysis) 3 Desirable: <150 Borderline High: 150-199 High: 200-499 Very High: >500 4 Desirable: <200 Borderline High: 200-239 High: >239 5 Low: <40 Desirable: 40-60 High: >60 6 Desirable: <100 Near Optimal: 100-129 Borderline High: 130-159 High: 160-189 Very High: >189 7 FASTING 8 Therapeutic target for the treatment of diabetes mellitus patients is <7% HBA1C, and in selective patients <6.0%. Please refer to [place] [employer] diabetic care guidelines for further information. 9 REFERENCE VALUE <=13 (Fasting) ADDITIONAL INFORMATION This test was developed and its performance characteristics determined by [facility] in a manner consistent with CLIA requirements. This test has not been cleared or approved by the U.S. Food and Drug Administration. Test Performed by: [facility] - [address] [address] 10 ADDITIONAL INFORMATION This test was developed and its performance characteristics determined by [facility] in a manner consistent with CLIA requirements. This test has not been cleared or approved by the U.S. Food and Drug Administration. Test Performed by: [facility] - [address] [address] 11 Normal Range 180 to 914 Indeterminate Range 145 to 180 Deficient Range <145 12 FASTING 13 ADDITIONAL INFORMATION This test was developed and its performance characteristics determined by [facility] in a manner consistent with CLIA requirements. This test has not been cleared or approved by the U.S. Food and Drug Administration. Test Performed by: [facility] - [address] [address] 14 ADDITIONAL INFORMATION This test was developed and its performance characteristics determined by [facility] in a manner consistent with CLIA requirements. This test has not been cleared or approved by the U.S. Food and Drug Administration. Test Performed by: [facility] - [address] [address] 15 ADDITIONAL INFORMATION This test was developed and its performance characteristics determined by [facility] in a manner consistent with CLIA requirements. This test has not been cleared or approved by the U.S. Food and Drug Administration. 16 ADDITIONAL INFORMATION Testing performed by Inductively Coupled Plasma-Mass Spectrometry (ICP-MS). This test was developed and its performance characteristics determined by [facility] in a manner consistent with CLIA requirements. This test has not been cleared or approved by the U.S. Food and Drug Administration. 17 ADDITIONAL INFORMATION This test was developed and its performance characteristics determined by [facility] in a manner consistent with CLIA requirements. This test has not been cleared or approved by the U.S. Food and Drug Administration. 18 ADDITIONAL INFORMATION This test was developed and its performance characteristics determined by [facility] in a manner consistent with CLIA requirements. This test has not been cleared or approved by the U.S. Food and Drug Administration. 19 Test Performed by: [facility] [place] [address] 20 In this sample, the increased pyridoxal 5-phosphate is likely related to dietary supplementation; however a mild expression of hypophosphatasia cannot be excluded. Consider analysis of serum alkaline phosphatase isoenzymes and urinary phosphoethanolamine. ADDITIONAL INFORMATION This test was developed and its performance characteristics determined by [facility] in a manner consistent with CLIA requirements. This test has not been cleared or approved by the U.S. Food and Drug Administration. 21 ADDITIONAL INFORMATION This test was developed and its performance characteristics determined by [facility] in a manner consistent with CLIA requirements. This test has not been cleared or approved by the U.S. Food and Drug Administration. Test Performed by: [facility] [place] [address] 22 Because ethnic data is not always readily available, this report includes an eGFR for both -Americans and non- Americans. The National Kidney Disease Education Program (NKDEP) does not endorse the use of the MDRD equation for patients that are not between the ages of 18 and 70, are , have extremes of body size, muscle mass, or nutritional status, or are non- or non-. According to the National Kidney Foundation, irrespective of diagnosis, the stage of the disease is based on the level of kidney function: Stage Description GFR(mL/min/1.73 m(2)) 1 Kidney damage with normal or decreased GFR 90 2 Kidney damage with mild decrease in GFR 60-89 3 Moderate decrease in GFR 30-59 4 Severe decrease in GFR 15-29 5 Kidney failure <15 (or dialysis) 23 Nonsmokers: < 2.9 ng/mL Some smokers may have elevated CEA, usually <5.0 ng/mL. Serum markers are not specific for malignancy, and values may vary by method. The testing method is an immunoenzymatic assay landscaping specialist by [employer] performed on [employer] DXI 600. Do not interpret serum CEA levels as absolute evidence of the presence or the absence of malignant disease. Use serum CEA in conjunction with information from the clinical evaluation of the patient and other diagnostic procedures. 24 SEE RESULT BELOW Name: CHRIST TAYLOR : [address]: Virgil Lo MD Acct: [id number] Unit: [id number] AGE: 72 Location: [facility] Re05/21/18 SEX: F Status: REG REF SPEC: [id number] [place]: 05/21/18-15[address] [facility] [address]: Virgil Lo MD REQ: [id number] RECD: 05/21/18-1539 STATUS: JERICA [place] DR: Kell Ramesh MD _ SOURCE: BLOOD,VENO SPDESC: ORDERED: Blood Cult Procedure Result Reported Site Aerobic Culture Bottle Final 05/26/18- 1540 ML No Growth Day 5 Anaerobic Culture Bottle Final 05/26/18- 1540 ML No Growth Day 5 * ML - Main Lab . END OF REPORT DEPARTMENT OF PATHOLOGY, [address] [place] [address] Jimmy Powers M.D. Director [facility] # [id number] 25 Because ethnic data is not always readily available, this report includes an eGFR for both -Americans and non- Americans. The National Kidney Disease Education Program (NKDEP) does not endorse the use of the MDRD equation for patients that are not between the ages of 18 and 70, are , have extremes of body size, muscle mass, or nutritional status, or are non- or non-. According to the National Kidney Foundation, irrespective of diagnosis, the stage of the disease is based on the level of kidney function: Stage Description GFR(mL/min/1.73 m(2)) 1 Kidney damage with normal or decreased GFR 90 2 Kidney damage with mild decrease in GFR 60-89 3 Moderate decrease in GFR 30-59 4 Severe decrease in GFR 15-29 5 Kidney failure <15 (or dialysis) 26 Nonsmokers: < 2.9 ng/mL Some smokers may have elevated CEA, usually <5.0 ng/mL. Serum markers are not specific for malignancy, and values may vary by method. The testing method is an immunoenzymatic assay landscaping specialist by [employer] performed on [employer] DXI 600. Do not interpret serum CEA levels as absolute evidence of the presence or the absence of malignant disease. Use serum CEA in conjunction with information from the clinical evaluation of the patient and other diagnostic procedures. 27 Because ethnic data is not always readily available, this report includes an eGFR for both -Americans and non- Americans. The National Kidney Disease Education Program (NKDEP) does not endorse the use of the MDRD equation for patients that are not between the ages of 18 and 70, are , have extremes of body size, muscle mass, or nutritional status, or are non- or non-. According to the National Kidney Foundation, irrespective of diagnosis, the stage of the disease is based on the level of kidney function: Stage Description GFR(mL/min/1.73 m(2)) 1 Kidney damage with normal or decreased GFR 90 2 Kidney damage with mild decrease in GFR 60-89 3 Moderate decrease in GFR 30-59 4 Severe decrease in GFR 15-29 5 Kidney failure <15 (or dialysis) 28 Nonsmokers: < 2.9 ng/mL Some smokers may have elevated CEA, usually <5.0 ng/mL. Serum markers are not specific for malignancy, and values may vary by method. The testing method is an immunoenzymatic assay landscaping specialist by [employer] performed on [employer] DXI 600. Do not interpret serum CEA levels as absolute evidence of the presence or the absence of malignant disease. Use serum CEA in conjunction with information from the clinical evaluation of the patient and other diagnostic procedures. 29 Nonsmokers: < 2.9 ng/mL Some smokers may have elevated CEA, usually <5.0 ng/mL. Serum markers are not specific for malignancy, and values may vary by method. The testing method is an immunoenzymatic assay landscaping specialist by [employer] performed on [employer] DXI 600. Do not interpret serum CEA levels as absolute evidence of the presence or the absence of malignant disease. Use serum CEA in conjunction with information from the clinical evaluation of the patient and other diagnostic procedures. 30 Because ethnic data is not always readily available, this report includes an eGFR for both -Americans and non- Americans. The National Kidney Disease Education Program (NKDEP) does not endorse the use of the MDRD equation for patients that are not between the ages of 18 and 70, are , have extremes of body size, muscle mass, or nutritional status, or are non- or non-. According to the National Kidney Foundation, irrespective of diagnosis, the stage of the disease is based on the level of kidney function: Stage Description GFR(mL/min/1.73 m(2)) 1 Kidney damage with normal or decreased GFR 90 2 Kidney damage with mild decrease in GFR 60-89 3 Moderate decrease in GFR 30-59 4 Severe decrease in GFR 15-29 5 Kidney failure <15 (or dialysis) 31 Nonsmokers: < 2.9 ng/mL Some smokers may have elevated CEA, usually <5.0 ng/mL. Serum markers are not specific for malignancy, and values may vary by method. The testing method is an immunoenzymatic assay landscaping specialist by [employer] performed on Magy Guroo DXI 600. Do not interpret serum CEA levels as absolute evidence of the presence or the absence of malignant disease. Use serum CEA in conjunction with information from the clinical evaluation of the patient and other diagnostic procedures. 32 Pancytopenia. No evidence of a hemolytic process. Reviewed by Marleni Guaman MD 33 Because ethnic data is not always readily available, this report includes an eGFR for both -Americans and non- Americans. The National Kidney Disease Education Program (NKDEP) does not endorse the use of the MDRD equation for patients that are not between the ages of 18 and 70, are , have extremes of body size, muscle mass, or nutritional status, or are non- or non-. According to the National Kidney Foundation, irrespective of diagnosis, the stage of the disease is based on the level of kidney function: Stage Description GFR(mL/min/1.73 m(2)) 1 Kidney damage with normal or decreased GFR 90 2 Kidney damage with mild decrease in GFR 60-89 3 Moderate decrease in GFR 30-59 4 Severe decrease in GFR 15-29 5 Kidney failure <15 (or dialysis) 34 Instrument used is Magy Eladio DXI 600. The assay is a two-site immunoenzymatic "sandwich" assay. Do not interpret CA125 levels as absolute evidence of the presence or the absence of malignant disease. Use in conjunction with information from the clinical evaluation of the patient and other diagnostic procedures. Values obtained with different assay methods cannot be used interchangeably. 35 REFERENCE VALUE <6.0 Reference values are for non- subjects only; production of AFP elevates values in women. ADDITIONAL INFORMATION The testing method is an immunoenzymatic assay manufactured by [employer] and performed on the [employer] DxI 800. Values obtained with different assay methods or kits may be different and cannot be used interchangeably. Test results cannot be interpreted as absolute evidence for the presence or absence of malignant disease. Alpha-Fetoprotein values are not interpretable in females for the investigation of malignant disease. Test Performed by: [facility] [address] [place] [address] 36 REFERENCE VALUE Females: <1.0 (Premenopausal, non-) <7.0 (Postmenopausal) ADDITIONAL INFORMATION This test has been modified from the landscaping specialist's instructions. Its performance characteristics were determined by [facility] in a manner consistent with CLIA requirements. This test has not been cleared or approved by the U.S. Food and Drug Administration. The testing method is an electrochemiluminescence assay manufactured by [employer] and performed on the Modular or Duane system. Values obtained with different assay methods or kits may be different and cannot be used interchangeably. Test results cannot be interpreted as absolute evidence for the presence or absence of malignant disease. Test Performed by: [facility] [address] [place] [address] 37 Because ethnic data is not always readily available, this report includes an eGFR for both -Americans and non- Americans. The National Kidney Disease Education Program (NKDEP) does not endorse the use of the MDRD equation for patients that are not between the ages of 18 and 70, are , have extremes of body size, muscle mass, or nutritional status, or are non- or non-. According to the National Kidney Foundation, irrespective of diagnosis, the stage of the disease is based on the level of kidney function: Stage Description GFR(mL/min/1.73 m(2)) 1 Kidney damage with normal or decreased GFR 90 2 Kidney damage with mild decrease in GFR 60-89 3 Moderate decrease in GFR 30-59 4 Severe decrease in GFR 15-29 5 Kidney failure <15 (or dialysis) 38 SEE RESULT BELOW Name: CHRIST TAYLOR : [address]: Kell Ramesh MD Acct: [id number] Unit: [id number] AGE: 71 Location: [facility] Re10/12/17 SEX: F Status: REG REF SPEC: [id number] [place]: 10/12/[address] [facility] [address]: Kell Ramesh MD REQ: [id number] RECD: 10/12/171014 STATUS: SOUT _ ORDERED: TP IMAGE ANALYS, HPV/Thin Prep, HPV 16/18 GENE COMMENTS: [id number] Negative for Intraepithelial lesion or Malignancy A. Ectocervical/Endocervical Specimen Adequacy: Satisfactory of evaluation Transformation zone component cannot be definitely identified due to presence of atrophy or other hormonal changes Patient Information: HPV: High risk HPV RNA testing regardless of pap results. HPV 16/18 Genotype Reflex Actual Specimen Date: 10/12/17 LMP If Unknown: age 56 ?: N Post Menopausal?: Y Hysterectomy?: N If Yes, enter Diagnosis: cervical mass on pelvic ultrasound. Date Time Test Result Flag (u) Normal Range 10/12/17 0835 @ HPV RNA RFLX GE Negative Negative @ @ The high-risk HPV types detected by the assay include: 16, @ 18, 31, 33, 35, 39, 45, 51, 52, 56, 58, 59, 66, and 68. Signed by and Reported on: DILIP Antonio (ASCP) [id number] This Pap test was evaluated with the assistance of the yepptPrep Test Imaging System. Due to cytologic findings at the supervisor detasseling crew microscope, comprehensive manual rescreening by a Business Economist may be required. The Pap Smear is a screening test designed to aid in the detection of premalignant and malignant conditions of the uterine cervix. It is not a diagnostic procedure and should not be used as the sole means of detecting cervical cancer. Both false- positive and false- negative reports do occur. Depending on your risk status, a Pap smear should be obtained and evaluated every 1-3 years. END OF REPORT DEPARTMENT OF PATHOLOGY, [address] [place] [address] Jimmy Powers M.D. Director [facility] # [id number] Because ethnic data is not always readily available, this report includes an eGFR for both -Americans and non- Americans. The National Kidney Disease Education Program (NKDEP) does not endorse the use of the MDRD equation for patients that are not between the ages of 18 and 70, are , have extremes of body size, muscle mass, or nutritional status, or are non- or non-. According to the National Kidney Foundation, irrespective of diagnosis, the stage of the disease is based on the level of kidney function: Stage Description GFR(mL/min/1.73 m(2)) 1 Kidney damage with normal or decreased GFR 90 2 Kidney damage with mild decrease in GFR 60-89 3 Moderate decrease in GFR 30-59 4 Severe decrease in GFR 15-29 5 Kidney failure <15 (or dialysis) 41 [id number] 42 SEE RESULT BELOW Name: CHRIST TAYLOR : [address]: Joann Mai DO Acct: [id number] Unit: [id number] AGE: 71 Location: ENDO Re07/17/17 SEX: F Status: REG REF SPEC: [id number] [place]: 07/17/17- SUBM DR: Joann Mai DO REQ: [id number] RECD: 07/17/17-1326 STATUS: LEE ANN C[place] DR: Kell Ramesh MD _ ORDERED: LEVEL 4/2 FINAL DIAGNOSIS 1. Colon, ascending, biopsy: -- Tubular adenoma. -- No high grade dysplasia or malignancy. 2. Colon, sigmoid, biopsy: -- Hyperplastic polyp. CLINICAL HISTORY Screening/Surveillance for malignancy in asymptomatic patient. 71 year old female here for surveillance; last colonoscopy in 2011 with tubular adenoma. Family history of colon cancer POST-OPERATIVE DIAGNOSIS Normal terminal ileum; 4 mm sessile ascending colon polyp and 2 mm flat sigmoid polyp ? both status post polypectomy; small non-bleeding internal hemorrhoids on retroflexion; good prep. Conclusions/Plan: Follow-up pathology GROSS DESCRIPTION 1. The specimen is received in formalin labeled, Ascending Colon Polyp, and consists of a 0.5 by up to 0.4 x 0.1 cm andujar-pink irregular soft tissue fragment which is submitted entirely in one cassette. 2. The specimen is received in formalin labeled, Biopsy Sigmoid Colon Polyp , and consists of two andujar-pink irregular soft tissue fragments measuring 0.2 x 0.2 x 0.1 cm and 0.6 by up to 0.2 x 0.1 cm which are submitted entirely in one cassette. Signed (signature on file) Marleni Guaman MD 1033 END OF REPORT * ML=Testing performed at Main Lab DEPARTMENT OF PATHOLOGY, [address] [place] [address] Jimmy Powers M.D. Director [facility] # [id number] Desirable: <150 Borderline High: 150-199 High: 200-499 Very High: >500 44 Desirable: <200 Borderline High: 200-239 High: >239 45 Low: <40 Desirable: 40-60 High: >60 46 Desirable: <100 Near Optimal: 100-129 Borderline High: 130-159 High: 160-189 Very High: >189 47 Because ethnic data is not always readily available, this report includes an eGFR for both -Americans and non- Americans. The National Kidney Disease Education Program (NKDEP) does not endorse the use of the MDRD equation for patients that are not between the ages of 18 and 70, are , have extremes of body size, muscle mass, or nutritional status, or are non- or non-. According to the National Kidney Foundation, irrespective of diagnosis, the stage of the disease is based on the level of kidney function: Stage Description GFR(mL/min/1.73 m(2)) 1 Kidney damage with normal or decreased GFR 90 2 Kidney damage with mild decrease in GFR 60-89 3 Moderate decrease in GFR 30-59 4 Severe decrease in GFR 15-29 5 Kidney failure <15 (or dialysis) 48 99th percentile=0.04 ng/mL Troponin results at [facility] and [facility] are not interchangeable. 49 99th percentile=0.04 ng/mL Troponin results at [facility] and [facility] are not interchangeable. 50 Because ethnic data is not always readily available, this report includes an eGFR for both -Americans and non- Americans. The National Kidney Disease Education Program (NKDEP) does not endorse the use of the MDRD equation for patients that are not between the ages of 18 and 70, are , have extremes of body size, muscle mass, or nutritional status, or are non- or non-. According to the National Kidney Foundation, irrespective of diagnosis, the stage of the disease is based on the level of kidney function: Stage Description GFR(mL/min/1.73 m(2)) 1 Kidney damage with normal or decreased GFR 90 2 Kidney damage with mild decrease in GFR 60-89 3 Moderate decrease in GFR 30-59 4 Severe decrease in GFR 15-29 5 Kidney failure <15 (or dialysis) 51 *Ascorbic acid is present which may interfere with detection of blood. 52 [facility] Severe Sepsis and Septic Shock Management Bundle Measure requires all lactic acids initially measuring >2.0 mmol/L be repeated. 53 Desirable <150 Borderline high 150-199 High 200-499 Very High >500 54 Desirable <200 Borderline high 200-239 High >239 55 Low <40 Desirable: 40-60 High: >60 56 Desirable: <100 mg/dL Near Optimal: 100-129 mg/dL Borderline High: 130-159 mg/dL High: 160-189 mg/dL Very High: >189 mg/dL 57 SEE RESULT BELOW Name: CHRIST TAYLOR : [address]: Ottoniel Trevino NP Acct: [id number] Unit: [id number] AGE: 70 Location: [facility] Re04/20/16 SEX: F Status: REG REF SPEC: [id number] [place]: 04/20/[address]: Ottoniel Trevino NP REQ: [id number] RECD: 04/20/16 STATUS: JERICA C[place] DR: Kell Dinh MD _ SOURCE: URINE SPDESC: ORDERED: Urine Culture Procedure Result Reported Site Urine Culture Final 04/21/16- 1619 ML No growth of clinically significant organisms * ML - MAIN LAB ([facility]) . END OF REPORT * ML=Testing performed at Main Lab DEPARTMENT OF PATHOLOGY, [address] [place] [address] Jimmy Powers M.D. Director [facility] # [id number] 58 Because ethnic data is not always readily available, this report includes an eGFR for both -Americans and non- Americans. The National Kidney Disease Education Program (NKDEP) does not endorse the use of the MDRD equation for patients that are not between the ages of 18 and 70, are , have extremes of body size, muscle mass, or nutritional status, or are non- or non-. According to the National Kidney Foundation, irrespective of diagnosis, the stage of the disease is based on the level of kidney function: Stage Description GFR(mL/min/1.73 m(2)) 1 Kidney damage with normal or decreased GFR 90 2 Kidney damage with mild decrease in GFR 60-89 3 Moderate decrease in GFR 30-59 4 Severe decrease in GFR 15-29 5 Kidney failure <15 (or dialysis) 59 FAX RESULTS TO: 60 FAX RESULTS TO: 61 Desirable <150 Borderline high 150-199 High 200-499 Very High >500 62 Desirable <200 Borderline high 200-239 High >239 63 Low <40 Desirable: 40-60 High: >60 64 Desirable: <100 mg/dL Near Optimal: 100-129 mg/dL Borderline High: 130-159 mg/dL High: 160-189 mg/dL Very High: >189 mg/dL 65 Because ethnic data is not always readily available, this report includes an eGFR for both -Americans and non- Americans. The National Kidney Disease Education Program (NKDEP) does not endorse the use of the MDRD equation for patients that are not between the ages of 18 and 70, are , have extremes of body size, muscle mass, or nutritional status, or are non- or non-. According to the National Kidney Foundation, irrespective of diagnosis, the stage of the disease is based on the level of kidney function: Stage Description GFR(mL/min/1.73 m(2)) 1 Kidney damage with normal or decreased GFR 90 2 Kidney damage with mild decrease in GFR 60-89 3 Moderate decrease in GFR 30-59 4 Severe decrease in GFR 15-29 5 Kidney failure <15 (or dialysis) 66 Low risk: <1.00 Average risk: 1.00-3.00 High risk: >3.00 67 Acute inflammation: >10.00 68 Because ethnic data is not always readily available, this report includes an eGFR for both -Americans and non- Americans. The National Kidney Disease Education Program (NKDEP) does not endorse the use of the MDRD equation for patients that are not between the ages of 18 and 70, are , have extremes of body size, muscle mass, or nutritional status, or are non- or non-. According to the National Kidney Foundation, irrespective of diagnosis, the stage of the disease is based on the level of kidney function: Stage Description GFR(mL/min/1.73 m(2)) 1 Kidney damage with normal or decreased GFR 90 2 Kidney damage with mild decrease in GFR 60-89 3 Moderate decrease in GFR 30-59 4 Severe decrease in GFR 15-29 5 Kidney failure <15 (or dialysis) 69 Desirable <150 Borderline high 150-199 High 200-499 Very High >500 70 Desirable <200 Borderline high 200-239 High >239 71 Low <40 Desirable: 40-60 High: >60 72 Desirable: <100 mg/dL Near Optimal: 100-129 mg/dL Borderline High: 130-159 mg/dL High: 160-189 mg/dL Very High: >189 mg/dL 73 PT IS FASTING 74 Desirable <150 Borderline high 150-199 High 200-499 Very High >500 75 Desirable <200 Borderline high 200-239 High >239 76 Low <40 Desirable: 40-60 High: >60 77 Desirable <100 Near Optimal 100-129 Borderline high 130-159 High 160-189 Very High >189 78 Because ethnic data is not always readily available, this report includes an eGFR for both -Americans and non- Americans. The National Kidney Disease Education Program (NKDEP) does not endorse the use of the MDRD equation for patients that are not between the ages of 18 and 70, are , have extremes of body size, muscle mass, or nutritional status, or are non- or non-. According to the National Kidney Foundation, irrespective of diagnosis, the stage of the disease is based on the level of kidney function: Stage Description GFR(mL/min/1.73 m(2)) 1 Kidney damage with normal or decreased GFR 90 2 Kidney damage with mild decrease in GFR 60-89 3 Moderate decrease in GFR 30-59 4 Severe decrease in GFR 15-29 5 Kidney failure <15 (or dialysis) 79 Serologic response to B. burgdorferi infection is not detected, but cannot rule out early infection during which low or undetectable antibody levels to B. burgdorferi may be present. If clinically indicated, a new serum specimen should be submitted in 7-14 days. Test Performed by: [facility] [place] [address] Vegetable Farming Supervisor: Abraham Jett M.D. 80 REFERENCE VALUE 25-HYDROXY D TOTAL (D2+D3) Optimum levels in the healthy population are 20-50, patients with bone disease may benefit from higher levels within this range. Test Performed by: [address] [address] Vegetable Farming Supervisor: Abraham Jett M.D. 81 Because ethnic data is not always readily available, this report includes an eGFR for both -Americans and non- Americans. The National Kidney Disease Education Program (NKDEP) does not endorse the use of the MDRD equation for patients that are not between the ages of 18 and 70, are , have extremes of body size, muscle mass, or nutritional status, or are non- or non-. According to the National Kidney Foundation, irrespective of diagnosis, the stage of the disease is based on the level of kidney function: Stage Description GFR(mL/min/1.73 m(2)) 1 Kidney damage with normal or decreased GFR 90 2 Kidney damage with mild decrease in GFR 60-89 3 Moderate decrease in GFR 30-59 4 Severe decrease in GFR 15-29 5 Kidney failure <15 (or dialysis) 82 HDL Interpretation: Undesirable: High Risk: Less than 40 mg/dL Desirable: Low Risk: Greater than 60 mg/dL 83 LDL Interpretation: Low Risk Optimal Level: LDL Less than 100 mg/dL Near or Above Optimal: LDL 100-129 mg/dL Borderline High Risk: LDL 130-159 mg/dL High Risk: LDL 160-189 mg/dL Very High Risk: LDL Greater than 189 mg/dL 84 HDL Interpretation: Undesirable: High Risk: Less than 40 mg/dL Desirable: Low Risk: Greater than 60 mg/dL 85 LDL Interpretation: Low Risk Optimal Level: LDL Less than 100 mg/dL Near or Above Optimal: LDL 100-129 mg/dL Borderline High Risk: LDL 130-159 mg/dL High Risk: LDL 160-189 mg/dL Very High Risk: LDL Greater than 189 mg/dL 86 Because ethnic data is not always readily available, this report includes an eGFR for both -Americans and non- Americans. The National Kidney Disease Education Program (NKDEP) does not endorse the use of the MDRD equation for patients that are not between the ages of 18 and 70, are , have extremes of body size, muscle mass, or nutritional status, or are non- or non-. According to the National Kidney Foundation, irrespective of diagnosis, the stage of the disease is based on the level of kidney function: Stage Description GFR(mL/min/1.73 m(2)) 1 Kidney damage with normal or decreased GFR 90 2 Kidney damage with mild decrease in GFR 60-89 3 Moderate decrease in GFR 30-59 4 Severe decrease in GFR 15-29 5 Kidney failure <15 (or dialysis) 87 RUN DATE: 06/05/12 [facility] LAB LIVE PAGE 1 RUN TIME: [address] [place], [place] [address] Specimen Inquiry Name: CHRIST TAYLOR : [address]: Coy KELLY,Alverto Levine Acct: [id number] Unit: [id number] AGE: 66 Location: [facility] Re05/31/12 SEX: F Status: REG REF SPEC: [id number] [place]: 05/31/12- SUBM DR: Coy KELLY, Alverto Levine REQ: [id number] RECD: 06/03/120759 STATUS: LEE ANN CLEVELAND DR: Gadiel KELLY,Marleni Curran _ ORDERED: LEVEL IV FINAL DIAGNOSIS Colon, cecum, biopsy: A. Tubular adenoma. B. No high grade dysplasia or malignancy. CLINICAL HISTORY High risk screening colonoscopy, personal history of colon polyps POST-OPERATIVE DIAGNOSIS Colonoscopy into cecum, prep good - small sigmoid colon polyp removed GROSS DESCRIPTION The specimen is received in formalin labelled Christ Taylor, Biopsy Polyp at 15 cm., and consists of a andujar, soft tissue fragment measuring 0.3 x 0.2 x 0.2 cm. Submitted entirely, one cassette. Signed (signature on file) Jimmy Powers MD 1330 END OF REPORT * ML=Testing performed at Main Lab DEPARTMENT OF PATHOLOGY, [address] [place] [address] Jimmy Powers M.D. Director [facility] Permit #[id number] 88 Anion gap measurement may be of limited value in the presence of any alkalosis, especially in a combined acid base disorder. . 89 A metabolite of Naproxen, O-desmethylnaproxen, has been shown to interfere with the Jendrassik-Siomara method for measuring total bilirubin. Samples from patients who have taken Naproxen have shown spurious elevation in total bilirubin levels. 90 Because ethnic data is not always readily available, this report includes an eGFR for both -Americans and non- Americans. The National Kidney Disease Education Program (NKDEP) does not endorse the use of the MDRD equation for patients that are not between the ages of 18 and 70, are , have extremes of body size, muscle mass, or nutritional status, or are non- or non-. According to the National Kidney Foundation, irrespective of diagnosis, the stage of the disease is based on the level of kidney function: Stage Description GFR(mL/min/1.73 m(2)) 1 Kidney damage with normal or decreased GFR 90 2 Kidney damage with mild decrease in GFR 60-89 3 Moderate decrease in GFR 30-59 4 Severe decrease in GFR 15-29 5 Kidney failure <15 (or dialysis) 91 CHOLESTEROL INTERPRETATION: Desirable: Less than 200 MG/DL Borderline-High Risk: 200-239 MG/DL High-Risk: 240 MG/DL and over 92 HDL INTERPRETATION: Undesirable: High Risk: Less than 40 MG/DL Desirable: Low Risk: Greater than 60 MG/DL 93 LDL INTERPRETATION: Low Risk Optimal Level: LDL Less than 100 MG/DL Near or Above Optimal: LDL 100-129 MG/DL Borderline High Risk: LDL 130-159 MG/DL High Risk: LDL 160-189 MG/DL Very High Risk: LDL Greater than 189 MG/DL 94 -- REFERENCE VALUE -- Negative Test Performed by: [facility] Dpt of Lab Med and Pathology [address] [place] [address] Vegetable Farming Supervisor: Saji Magallanes III, M.D. 95 FASTING 96 CHOLESTEROL INTERPRETATION: Desirable: Less than 200 MG/DL Borderline-High Risk: 200-239 MG/DL High-Risk: 240 MG/DL and over 97 HDL INTERPRETATION: Undesirable: High Risk: Less than 40 MG/DL Desirable: Low Risk: Greater than 60 MG/DL 98 LDL INTERPRETATION: Low Risk Optimal Level: LDL Less than 100 MG/DL Near or Above Optimal: LDL 100-129 MG/DL Borderline High Risk: LDL 130-159 MG/DL High Risk: LDL 160-189 MG/DL Very High Risk: LDL Greater than 189 MG/DL 99 -- REFERENCE VALUE -- 25-HYDROXY D TOTAL (D2+D3) Optimum levels in the normal population are 25-80 Test Performed by: [facility] Dpt of Lab Med and Pathology [address] [place] [id number] Vegetable Farming Supervisor: Saji Magallanes III, M.D. 100 Test Performed by: [facility] Dpt of Lab Med and Pathology [address] [id number] Vegetable Farming Supervisor: Saji Magallanes III, M.D. 101 CHOLESTEROL INTERPRETATION: Desirable: Less than 200 MG/DL Borderline-High Risk: 200-239 MG/DL High-Risk: 240 MG/DL and over 102 HDL INTERPRETATION: Undesirable: High Risk: Less than 40 MG/DL Desirable: Low Risk: Greater than 60 MG/DL 103 LDL INTERPRETATION: Low Risk Optimal Level: LDL Less than 100 MG/DL Near or Above Optimal: LDL 100-129 MG/DL Borderline High Risk: LDL 130-159 MG/DL High Risk: LDL 160-189 MG/DL Very High Risk: LDL Greater than 189 MG/DL 104 Anion gap measurement may be of limited value in the presence of any alkalosis, especially in a combined acid base disorder. . 105 A metabolite of Naproxen, O-desmethylnaproxen, has been shown to interfere with the Jendrassik-Siomara method for measuring total bilirubin. Samples from patients who have taken Naproxen have shown spurious elevation in total bilirubin levels. 106 Because ethnic data is not always readily available, this report includes an eGFR for both -Americans and non- Americans. The National Kidney Disease Education Program (NKDEP) does not endorse the use of the MDRD equation for patients that are not between the ages of 18 and 70, are , have extremes of body size, muscle mass, or nutritional status, or are non- or non-. According to the National Kidney Foundation, irrespective of diagnosis, the stage of the disease is based on the level of kidney function: Stage Description GFR(mL/min/1.73 m(2)) 1 Kidney damage with normal or decreased GFR 90 2 Kidney damage with mild decrease in GFR 60-89 3 Moderate decrease in GFR 30-59 4 Severe decrease in GFR 15-29 5 Kidney failure <15 (or dialysis) 107 CHOLESTEROL INTERPRETATION: Desirable: Less than 200 MG/DL Borderline-High Risk: 200-239 MG/DL High-Risk: 240 MG/DL and over 108 HDL INTERPRETATION: Undesirable: High Risk: Less than 40 MG/DL Desirable: Low Risk: Greater than 60 MG/DL 109 LDL INTERPRETATION: Low Risk Optimal Level: LDL Less than 100 MG/DL Near or Above Optimal: LDL 100-129 MG/DL Borderline High Risk: LDL 130-159 MG/DL High Risk: LDL 160-189 MG/DL Very High Risk: LDL Greater than 189 MG/DL 110 Anion gap measurement may be of limited value in the presence of any alkalosis, especially in a combined acid base disorder. . 111 Note change in reference range as of 01/23/08. The change was based on recommendations from the [place] [employer]. 112 A metabolite of Naproxen, O-desmethylnaproxen, has been shown to interfere with the Jendrassik-Siomara method for measuring total bilirubin. Samples from patients who have taken Naproxen have shown spurious elevation in total bilirubin levels. 113 Because ethnic data is not always readily available, this report includes an eGFR for both -Americans and non- Americans. The National Kidney Disease Education Program (NKDEP) does not endorse the use of the MDRD equation for patients that are not between the ages of 18 and 70, are , have extremes of body size, muscle mass, or nutritional status, or are non- or non-. According to the National Kidney Foundation, irrespective of diagnosis, the stage of the disease is based on the level of kidney function: Stage Description GFR(mL/min/1.73 m(2)) 1 Kidney damage with normal or decreased GFR 90 2 Kidney damage with mild decrease in GFR 60-89 3 Moderate decrease in GFR 30-59 4 Severe decrease in GFR 15-29 5 Kidney failure <15 (or dialysis) 114 CHOLESTEROL INTERPRETATION: Desirable: Less than 200 MG/DL Borderline-High Risk: 200-239 MG/DL High-Risk: 240 MG/DL and over 115 HDL INTERPRETATION: Undesirable: High Risk: Less than 40 MG/DL Desirable: Low Risk: Greater than 60 MG/DL 116 LDL INTERPRETATION: Low Risk Optimal Level: LDL Less than 100 MG/DL Near or Above Optimal: LDL 100-129 MG/DL Borderline High Risk: LDL 130-159 MG/DL High Risk: LDL 160-189 MG/DL Very High Risk: LDL Greater than 189 MG/DL 117 COMMENTS: AT 0400 118 New Reference Range and Interpretation effective 03/07/2002 TnI (ng/ml) INTERPRETATION Less Than 0.06 ng/mL NOT SUPPORTIVE OF DIAGNOSIS OF ND 0.06 - 0.50 ng/ml INDETERMINATE: SUGGEST SERIAL STUDIES IF CLINICALLY INDICATED. Greater than 0.5 ng/mL CONSISTENT WITH DIAGNOSIS OF ND . 119 Anion gap measurement may be of limited value in the presence of any alkalosis, especially in a combined acid base disorder. . 120 Note change in reference range as of 01/23/08. The change was based on recommendations from the [place] [employer]. 121 Please note change in reference range effective 07 . 122 A metabolite of Naproxen, O-desmethylnaproxen, has been shown to interfere with the Jendrassik-Siomara method for measuring total bilirubin. Samples from patients who have taken Naproxen have shown spurious elevation in total bilirubin levels. 123 Because ethnic data is not always readily available, this report includes an eGFR for both -Americans and non- Americans. The National Kidney Disease Education Program (NKDEP) does not endorse the use of the MDRD equation for patients that are not between the ages of 18 and 70, are , have extremes of body size, muscle mass, or nutritional status, or are non- or non-. According to the National Kidney Foundation, irrespective of diagnosis, the stage of the disease is based on the level of kidney function: Stage Description GFR(mL/min/1.73 m(2)) 1 Kidney damage with normal or decreased GFR 90 2 Kidney damage with mild decrease in GFR 60-89 3 Moderate decrease in GFR 30-59 4 Severe decrease in GFR 15-29 5 Kidney failure <15 (or dialysis) 124 New Reference Range and Interpretation effective 03/07/2002 TnI (ng/ml) INTERPRETATION Less Than 0.06 ng/mL NOT SUPPORTIVE OF DIAGNOSIS OF ND 0.06 - 0.50 ng/ml INDETERMINATE: SUGGEST SERIAL STUDIES IF CLINICALLY INDICATED. Greater than 0.5 ng/mL CONSISTENT WITH DIAGNOSIS OF ND . 125 Anion gap measurement may be of limited value in the presence of any alkalosis, especially in a combined acid base disorder. . 126 Note change in reference range as of 01/23/08. The change was based on recommendations from the [place] [employer]. 127 Please note change in reference range effective 07 . 128 Because ethnic data is not always readily available, this report includes an eGFR for both -Americans and non- Americans. The National Kidney Disease Education Program (NKDEP) does not endorse the use of the MDRD equation for patients that are not between the ages of 18 and 70, are , have extremes of body size, muscle mass, or nutritional status, or are non- or non-. According to the National Kidney Foundation, irrespective of diagnosis, the stage of the disease is based on the level of kidney function: Stage Description GFR(mL/min/1.73 m(2)) 1 Kidney damage with normal or decreased GFR 90 2 Kidney damage with mild decrease in GFR 60-89 3 Moderate decrease in GFR 30-59 4 Severe decrease in GFR 15-29 5 Kidney failure <15 (or dialysis) 129 FASTING 130 CHOLESTEROL INTERPRETATION: Desirable: Less than 200 MG/DL Borderline-High Risk: 200-239 MG/DL High-Risk: 240 MG/DL and over 131 HDL INTERPRETATION: Undesirable: High Risk: Less than 40 MG/DL Desirable: Low Risk: Greater than 60 MG/DL 132 LDL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
--- OUTSIDE RECORDS SUMMARY | 2018-10-09 13:24 | XMS REPORT | Continuity of Care Document ---
:1945 External Reference #:[id number] Author Name Tyler Marcus, OD Address [address] [place] [address] Care Team Providers Name Role Phone Gadiel KELLY, Marelni Care Team Information Night Nurse Unavailable Marleni Ramesh MD Primary Care Physician Unavailable Payers Date Identification Numbers Payment Provider Subscriber Policy Number: [id number] [employer] [place] Kim Taylor PayID: [id number] [address] [place] [address] Policy Number: [id number] [facility] Kim Taylor PayID: [id number] [address] [place] [address] Advance Directives Description No Information Available Problems Active Problems Provider Date 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 Essential hypertension Onset: 03/19/2015 Hyperlipidemia Onset: 04/01/2010 Localized, primary osteoarthritis of the pelvic region and Onset: 10/13/2015 thigh Spinal stenosis in cervical region Onset: 05/19/2017 Family History Date Family Member(s) Observation Comments General Arthritis General Cerebrovascular Accident General Heart Disease General Heart Failure General Grandparent, Brother, Aunt Father Cancer Father Diabetes Father High BP Mother Arthritis Mother Thyroid Disease Social History Type Date Description Comments Sex Unknown ETOH Use Rarely consumes alcohol Tobacco Use Start: Unknown Patient has never smoked Smoking Status Reviewed: 10/01/18 Patient has never smoked Allergies, Adverse Reactions, Alerts Active Allergies Reaction Severity Comments Date Trimox 09/04/2017 Sulfamethoxazole / Trimethoprim Free Text 09/11/2018 Sulfa Antibiotics 09/04/2017 Yellow Jacket Venom Protein 09/11/2018 Opium 09/04/2017 Morphine 10/04/2017 Medications Active Medications SIG Qnty Indications Ordering Provider Date Ketorolac 1 drops right eye 5ml Carlitos Armijo, 09/10/2018 Tromethamine twice a day M.D. 0.5% Solution Pred Forte 1 drops right eye 10ml Carlitos Armijo, 09/10/2018 1% four times a day M.D. Suspension Tums prn Carlitos Armijo, 07/05/2018 Chewtabs [place] Docusate Sodium as needed 60caps Unknown 11/17/2017 100mg Capsules Epipen 2-Kip Use Once as 2units Gadiel KELLY, 11/07/2009 Directed Marleni 0.3mg/0.3ML Solution Auto-Inject Tylenol prn Unknown Capsules Coenzyme Q-10 Unknown Capsules Cod Liver Oil Unknown Capsules Osteoprime Ultra Unknown Tablets Vitamin A Unknown Capsules Vitamin D3 Unknown Capsules Vitamin B6 Unknown Tablets Vitamin C Unknown Capsules Famotidine Unknown 40mg Tablets History Medications Vigamox 1 drop right eye 3ml Carlitos Armijo, 09/10/2018 - 0.5% Solution four times a day, M.D. 10/01/2018 start drops the morning of surgery Vigamox 1 drop right eye 3ml Carlitos Armijo, 07/15/2018 - 0.5% Solution four times a day, M.D. 08/06/2018 start drops the morning of surgery Ketorolac Tromethamine 1 drops left eye 5ml Carlitos Armijo, 07/15/2018 - 0.5% twice a day M.D. 09/06/2018 Solution Pred Forte 1 drops left eye 10ml Carlitos Armijo, 07/15/2018 - 1% Suspension four times a day M.D. 09/06/2018 Vigamox 1 drop drops left 5ml Carlitos Armijo, 10/03/2017 - 0.5% Solution eye four times a M.D. 07/05/2018 day Ketorolac Tromethamine 1 drops left eye 10ml Carlitos Armijo, 10/03/2017 - 0.5% twice a day M.D. 07/05/2018 Solution Prednisolone Acetate 1 drop right eye 10ml Carlitos Armijo, 10/03/2017 - 1% four times a day M.D. 07/05/2018 Suspension Metoprolol Succinate ER Unknown - 07/05/2018 25mg Tablets ER 24HR Metronidazole For Rosacea Unknown - 0.75% Gel 07/05/2018 Immunizations CPT Code Status Date Vaccine Lot # [id number] Given 03/08/2017 Influenza Virus Vaccine, Quadrivalent, Split, Preservative Free 01296 Given 02/24/2016 Influenza Virus Vaccine, Quadrivalent, Split, Preservative Free 59710 Given 03/30/2015 Pneumococcal Conjugate Vaccine 13 Valent For Intramuscular Use 63210 Given 03/19/2015 Influenza Virus Vaccine, Quadrivalent, Split, Preservative Free 60143 Given 03/17/2014 Influenza Virus Vaccine Split Virus Use For Individual 3Yr Older 60697 Given 02/28/2013 Influenza Virus Split 3 Yrs And Above For Intramuscular Use 09833 Given 02/12/2012 Influenza Virus Split 3 Yrs And Above For Intramuscular Use 23496 Given 01/26/2012 Pneumococcal Vaccine 2Yrs Or Older 71312 Given 03/20/2011 Influenza Virus Split 3 Yrs And Above For Intramuscular Use 65807 Given 07/05/2010 Tetanus, Diphtheria Toxoids/Acellular Pertussis Vaccine 7 Or > 14443 Given 04/27/2008 Influenza Virus Split 3 Yrs And Above For Intramuscular Use 58278 Given 04/27/2008 Influenza Virus Split 3 Yrs And Above For Intramuscular Use Vital Signs Date Vital Result Comment 10/01/2018 10:22am Intraocular Pressure Right Eye 12 mmHg Intraocular Pressure Left Eye 12 mmHg 09/25/2018 11:23am Intraocular Pressure Right Eye 12 mmHg Intraocular Pressure Left Eye 12 mmHg 09/06/2018 11:19am Intraocular Pressure Right Eye 12 mmHg Intraocular Pressure Left Eye 12 mmHg Cornea Thickness Left Eye 572 m Cornea Thickness Right Eye 574 m Pachymetry adjusted IOP Right Eye -1 Pachymetry adjusted IOP Left Eye -1 08/06/2018 9:22am Intraocular Pressure Left Eye 13 mmHg 07/31/2018 11:24am Intraocular Pressure Left Eye 11 mmHg Cornea Thickness Right Eye 611 m Pachymetry adjusted IOP Left Eye -4 07/05/2018 9:03am Intraocular Pressure Right Eye 11 mmHg Intraocular Pressure Left Eye 11 mmHg 10/04/2017 10:55am Intraocular Pressure Right Eye 11 mmHg Intraocular Pressure Left Eye 11 mmHg Cornea Thickness Left Eye 569 m Cornea Thickness Right Eye 554 m Pachymetry adjusted IOP Right Eye -1 Pachymetry adjusted IOP Left Eye 0 09/04/2017 10:08am Intraocular Pressure Right Eye 10 mmHg Intraocular Pressure Left Eye 11 mmHg Results Test Date Facility Test Result H/L Range Note Lipid Profile 09/05/2018 N2N/CCD Import Triglycerides 108 mg/dL 1 (Trig/Chol/HDL) Cholesterol 216 mg/dL 2 HDL Cholesterol 73.5 mg/dL 3 LDL Cholesterol 121 mg/dL 4 CBC Auto Diff 06/03/2018 N2N/CCD Import White Blood Count 3.7 10^3/uL 3.5-10.8 Red Blood Count 3.61 10^6/uL Low 4-5.4 Hemoglobin 11.5 g/dL Low 12-16 Hematocrit 35 % 35-47 Mean Corpuscular Volume 96 fL 80-97 Mean Corpuscular Hemoglobin 32 pg High 27-31 Mean Corpuscular HGB Conc 33 g/dL 31-36 Red Cell Distribution Width 18 % High 10.5-15 Platelet Count 148 10^3/uL Low 150-450 Mean Platelet Volume 8.4 fL 7.4-10.4 Abs Neutrophils 1.3 10^3/uL Low 1.5-7.7 Abs Lymphocytes 1.9 10^3/uL 1-4.8 Abs Monocytes 0.4 10^3/uL 0-0.8 Abs Eosinophils 0.1 10^3/uL 0-0.6 Abs Basophils 0 10^3/uL 0-0.2 Abs Nucleated RBC 0 10^3/uL Granulocyte % 34.5 % Lymphocyte % 51.1 % Monocyte % 9.8 % Eosinophil % 3.8 % Basophil % 0.8 % Nucleated Red Blood Cells % 0.1 1 Lab Results 06/03/2018 N2N/CCD Import Sodium 138 mmol/L 135-145 Potassium 3.7 mmol/L 3.5-5 Chloride 104 mmol/L 101-111 Co2 Carbon Dioxide 28 mmol/L 22-32 Anion Gap 6 mmol/L 2-11 Glucose 116 mg/dL High 70-100 Blood Urea Nitrogen 18 mg/dL 6-24 Creatinine 0.65 mg/dL 0.51-0.95 BUN/Creatinine Ratio 27.7 1 High 8-20 Calcium 9.5 mg/dL 8.6-10.3 Total Protein 6.4 g/dL 6.4-8.9 Albumin 3.9 g/dL 3.2-5.2 Globulin 2.5 g/dL 2-4 Albumin/Globulin Ratio 1.6 1 1-3 Total Bilirubin 0.70 mg/dL 0.2-1 Alkaline Phosphatase 124 U/L High 34-104 Alt 30 U/L 7-52 Ast 34 U/L 13-39 Egfr Non- 89.9 1 Egfr 108.7 1 5 Carcinoembryonic Antigen Cea 1.1 ng/mL 0.1-5 6 Lab Results 06/03/2018 N2N/CCD Import Carcinoembryonic Antigen 1.1 ng/mL 0.1-5 7 Cea Lab Results 05/21/2018 N2N/CCD Import Blood Culture See Result 8 Below 1 Desirable: <150 Borderline High: 150-199 High: 200-499 Very High: >500 2 Desirable: <200 Borderline High: 200-239 High: >239 3 Low: <40 Desirable: 40-60 High: >60 4 Desirable: <100 Near Optimal: 100-129 Borderline High: 130-159 High: 160-189 Very High: >189 5 Because ethnic data is not always readily [...] 15-29 5 Kidney failure <15 (or dialysis) 6 Nonsmokers: < 2.9 ng/mL Some smokers may have elevated CEA, usually <5.0 ng/mL. Serum markers are not specific for malignancy, and values may vary by method. The testing method is an immunoenzymatic assay ground systems engineer by [employer] performed on [employer] DXI 600. Do not interpret serum CEA levels as absolute evidence of the presence or the absence of malignant disease. Use serum CEA in conjunction with information from the clinical evaluation of the patient and other diagnostic procedures. 7 Nonsmokers: < 2.9 ng/mL Some smokers may have elevated CEA, usually <5.0 ng/mL. Serum markers are not specific for malignancy, and values may vary by method. The testing method is an immunoenzymatic assay ground systems engineer by [employer]) performed on [employer] DXI 600. Do not interpret serum CEA levels as absolute evidence of the presence or the absence of malignant disease. Use serum CEA in conjunction with information from the clinical evaluation of the patient and other diagnostic procedures. 8 SEE RESULT BELOW Name: BELLAKIM : [address]: Virgil Lo MD Acct: [id number] Unit: [id number] AGE: 72 Location: [facility] Re05/21/18 SEX: F Status: REG REF SPEC: [id number] [place]: 05/21/18-1520 [facility] DR: Virgil Lo MD REQ: [id number] RECD: 05/21/18-1539 STATUS: JERICA CLEVELAND DR: Kell Ramesh MD _ SOURCE: BLOOD,VENO SPDESC: ORDERED: Blood Cult Procedure Result Reported Site Aerobic Culture Bottle Final 05/26/18- 1540 ML No Growth Day 5 Anaerobic Culture Bottle Final 05/26/18- 1540 ML No Growth Day 5 * ML - Main Lab . END OF REPORT DEPARTMENT OF PATHOLOGY, [address] [place] [address] Jimmy Powers M.D. Director [facility] # [id number] Procedures Date Code Description Status 09/24/2018 48319 Extracapsular Cataract Extraction W/Intraocular Lens Completed 07/30/2018 48853 Extracapsular Cataract Extraction W/Intraocular Lens Completed 07/05/2018 73963 Ophthalmic Biometry By Partial Coherence Interferometry Completed W/Intra 07/05/2018 64943 Eye Exam Est Intermediate Completed 10/04/2017 13465 Ophthalmic Biometry By Partial Coherence Interferometry Completed W/Intra 10/04/2017 00425 Eye Exam Est Intermediate Completed 10/04/2017 36547 Corneal Pachymetry, Unilateral/Bilateral Completed 09/04/2017 56402 Eye Exam New Intermediate Completed Encounters Description No Information Available Plan of Treatment Future Appointment(s):10/29/2018 10:30 am - Tyler Marcus, OD at Main [id number] - Tyler Marcus, ODH18.51 Endothelial corneal phcwlwzkrF93.1 Presence of intraocular lensFollow up:as scheduled 1 month post op, sooner PRN
--- OUTSIDE RECORDS SUMMARY | 2018-10-09 13:24 | XMS REPORT | Continuity of Care Document ---
:1945 External Reference #:[id number] Author Name Carlitos Armijo M.D. Address [address]. [facility] [place] [address] Care Team Providers Name Role Phone Gadiel KELLY, Marleni Care Team Information Tile Layer Unavailable Marleni aRmesh MD Primary Care Physician Unavailable Payers Date Identification Numbers Payment Provider Subscriber Policy Number: [id number] [employer] [place] Kim Taylor PayID: [id number] [address] [place] [address] Policy Number: [id number] [facility] Kim Taylor PayID: [id number] [address] [place] [address] Advance Directives Description No Information Available Problems [...] Patient has never smoked Smoking Status Reviewed: 09/25/18 Patient has never smoked Allergies, Adverse Reactions, Alerts Active Allergies Reaction Severity Comments Date Trimox 09/04/2017 Sulfamethoxazole / Trimethoprim Free Text 09/11/2018 Sulfa Antibiotics 09/04/2017 Yellow Jacket Venom Protein 09/11/2018 Opium 09/04/2017 Morphine 10/04/2017 Medications Active Medications SIG Qnty Indications Ordering Provider Date Vigamox 1 drop right eye 3ml Carlitos Armijo, 09/10/2018 0.5% Solution four times a day, M.D. start drops the morning of surgery Ketorolac 1 drops right eye 5ml Carlitos Armijo, 09/10/2018 Tromethamine twice a day M.D. 0.5% Solution Pred Forte 1 drops right eye 10ml Carlitos Armijo, 09/10/2018 1% four times a day M.D. Suspension Tums prn Carlitos Armijo, 07/05/2018 Chewtabs M.DRachel Docusate Sodium as needed 60caps Unknown 11/17/2017 100mg Capsules Epipen 2-Kip Use Once as 2units Gdaiel KELLY, 11/07/2009 Directed Marleni 0.3mg/0.3ML Solution Auto-Inject [...] CPT Code Status Date Vaccine Lot # [id number] Given 03/08/2017 Influenza Virus Vaccine, Quadrivalent, Split, Preservative Free 45807 Given 02/24/2016 Influenza Virus Vaccine, Quadrivalent, Split, Preservative Free 63951 Given 03/30/2015 Pneumococcal Conjugate Vaccine 13 Valent For Intramuscular Use 04281 Given 03/19/2015 Influenza Virus Vaccine, Quadrivalent, Split, Preservative Free 99751 Given 03/17/2014 Influenza Virus Vaccine Split Virus Use For Individual 3Yr Older 85454 Given 02/28/2013 Influenza Virus Split 3 Yrs And Above For Intramuscular Use 93339 Given 02/12/2012 Influenza Virus Split 3 Yrs And Above For Intramuscular Use 97879 Given 01/26/2012 Pneumococcal Vaccine 2Yrs Or Older 71820 Given 03/20/2011 Influenza Virus Split 3 Yrs And Above For Intramuscular Use 39330 Given 07/05/2010 Tetanus, Diphtheria Toxoids/Acellular Pertussis Vaccine 7 Or > 23735 Given 04/27/2008 Influenza Virus Split 3 Yrs And Above For Intramuscular Use 42402 Given 04/27/2008 Influenza Virus Split 3 Yrs And Above For Intramuscular Use Vital Signs Date Vital Result Comment 09/25/2018 11:23am Intraocular Pressure Right Eye 12 [...] The testing method is an immunoenzymatic assay kennel staff member by [employer] performed on [employer] DXI 600. Do not interpret serum CEA [...] The testing method is an immunoenzymatic assay kennel staff member by [employer] performed on [employer] Elad[employer] DXI 600. Do not interpret serum CEA levels as absolute evidence of the presence or the absence of malignant disease. Use serum CEA in conjunction with information from the clinical evaluation of the patient and other diagnostic procedures. 8 SEE RESULT BELOW Name: KIM TAYLOR Yasmin : [address]: Virgil Lo MD Acct: [id number] Unit: [id number] AGE: 72 Location: [facility] Re05/21/18 SEX: F Status: REG REF SPEC: [id number] [place]: 05/21/[address] [facility] DR: Virgil Lo MD REQ: [id number] RECD: 05/21/18 STATUS: JERICA CLEVELAND DR: Kell Ramesh MD _ SOURCE: BLOOD,VENO SPDESC: ORDERED: Blood Cult Procedure Result Reported Site Aerobic Culture Bottle Final 05/26/18- 1540 ML No Growth Day 5 Anaerobic Culture Bottle Final 05/26/18- 1540 ML No Growth Day 5 * ML - Main Lab . END OF REPORT DEPARTMENT OF PATHOLOGY, [address] [place] [address] Jimmy Powers M.D. Director [facility] # [id number] Procedures Date Code Description Status 07/30/2018 84342 Extracapsular Cataract Extraction W/Intraocular Lens Completed 07/05/2018 51339 Ophthalmic Biometry By Partial Coherence Interferometry Completed W/Intra 07/05/2018 99382 Eye Exam Est Intermediate Completed 10/04/2017 99503 Ophthalmic Biometry By Partial Coherence Interferometry Completed W/Intra 10/04/2017 89937 Eye Exam Est Intermediate Completed 10/04/2017 78473 Corneal Pachymetry, Unilateral/Bilateral Completed 09/04/2017 25034 Eye Exam New Intermediate Completed Encounters Description No Information Available Plan of Treatment Future Appointment(s):10/29/2018 10:30 am - Tyler Marcus, OD at Main [id number] 10:00 am - Tyler Marcus, OD at Main Npbkst3309/25/2018 - Carlitos Armijo M.D.Z48.89 Encounter for other specified surgical aftercareComments:The patient was seen post-operatively one day following surgery. The patient was advised that the eye tolerated the surgery well without complications. Patient was given eye drop schedule and implant card.The patient was told to wear an eye shield QHS for one week and sunglasses daily. The patient was also advised to contact us immediately if new symptoms or visual changes are noted such as pain , worsening redness, flashes, floaters or decrease in vision.Follow up:The patient is to return in one week to follow up after cataract surgery and sooner if needed.
[2018-10-09 14:21] LABS: ABS Lymphocytes 2.1 10^3/ul (1.0-4.8); ABS Monocytes 0.3 10^3/ul (0-0.8); ABS Neutrophils 2.9 10^3/ul (1.5-7.7); Eosinophil % 0.8 %; Hematocrit 38 % (35-47); Hemoglobin 13.1 g/dL (12.0-16.0); Lymphocyte % 39.1 %; Mean Corpuscular HGB Conc 34 g/dL (31-36); Mean Corpuscular Hemoglobin 32 pg (27-31); Mean Corpuscular Volume 93 fL (80-97); Mean Platelet Volume 8.7 fL (7.4-10.4); Nucleated Red Blood Cells % 0.1; Platelet Count 191 10^3/uL (150-450); Red Blood Count 4.15 10^6 /uL (3.70-4.87); Red Cell Distribution Width 14 % (10.5-15); White Blood Count 5.4 10^3/uL (3.5-10.8)
[2018-10-09 14:40] LABS: Troponin I 0.01 ng/mL (<0.04)
[2018-10-09 14:42] LABS: ALT 24 U/L (7-52); AST 25 U/L (13-39); Albumin 4.4 g/dL (3.2-5.2); Albumin/Globulin Ratio 1.8 (1-3); Alkaline Phosphatase 96 U/L (34-104); Anion Gap 6 mmol/L (2-11); BUN/Creatinine Ratio 32.8 (8-20); Blood Urea Nitrogen 20 mg/dL (6-24); C Reactive Protein < 1.00 mg/L (<8.01); CO2 Carbon Dioxide 27 mmol/L (22-32); Calcium 9.9 mg/dL (8.6-10.3); Chloride 102 mmol/L (101-111); EGFR Non-African American 96.7 (>60); Globulin 2.4 g/dL (2-4); Glucose 100 mg/dL (70-100); Potassium 4.1 mmol/L (3.5-5.0); Sodium 135 mmol/L (135-145); Total Protein 6.8 g/dL (6.4-8.9)
[2018-10-09] MEDS ORDERED: NS 0.9% 1000 ML** 1,000 ML IV ONE (16:12)
[2018-10-09] MEDS ORDERED: Pantoprazole IV* 40 MG IV ONE (16:12)
--- NOTE | 2018-10-09 16:20 | ED ---
Abdominal Pain/Female - HPI Summary HPI Summary: Pt is a 72 y/o F presenting to the ED with a chief complaint of chronic abd pain. The pt has hx of CA dxed last November located in her appendix that spread throughout her uterus and colon. She had major surgery to remove 11in of her colon, hysterectomy, and omentum removal, and then was on chemotherapy until June of this year. Around July of this year, she started having sx of GERD, and all the medication that she used to help it (Famotidine, Tylenol, TUMS), are no longer helping. She feels as though the pain has gotten much worse within the last couple of weeks, and is also now in the LUQ, radiating to her back. She presently rates it at a 5/10. She reports nausea, abd pain described as burning, and BABIN. She denies fever, chills, vomiting, and blood in her stool. She spoke with a nurse at Dr. Ceja office this morning who recommended coming into the ED today, and she last had a CT scan on 09/17/18 that showed no visible signs of CA. - History of Current Complaint Chief Complaint: EDAbdPain Stated Complaint: GASTRIC REFLUX PER PT Time Seen by Provider: 10/09/18 15:55 Hx Obtained From: Patient Onset/Duration: Gradual Onset, Lasting Weeks, Still Present Timing: Weeks Severity Initially: Mild Severity Currently: Moderate Pain Intensity: 5 Pain Scale Used: 0-10 Numeric Location: Discrete At: LUQ, Epigastric Radiates: Yes Radiates to: Back Character: Burning Aggravating Factor(s): Nothing Alleviating Factor(s): Nothing Associated Signs and Symptoms: Positive: Back Pain, Nausea. Negative: Fever, Blood in Stool, Vomiting Allergies/Adverse Reactions: Allergies Allergy/AdvReac Type Severity Reaction Status Date / Time bee venom protein (honey bee) Allergy Severe anaphylaxis Verified 10/09/18 13:17 to yellow jackets morphine Allergy Severe SEVERE Verified 10/09/18 13:17 DIZZINESS adhesive Allergy Intermediate redness,ithing Verified 10/09/18 13:17 ,burning Sulfa (Sulfonamide Allergy Intermediate Hives Verified 10/09/18 13:17 Antibiotics) trimoxosol Allergy Intermediate Hives Uncoded 09/24/18 11:19 PMH/Surg Hx/FS Hx/Imm Hx Previously Healthy: No Endocrine/Hematology History: Reports: Hx Thyroid Disease, Hx Anemia - as a child only AND WHILE ON CHEMOTHERAPY Denies: Hx Diabetes Cardiovascular History: Reports: Hx Hypertension, Hx Peripheral Vascular Disease - vericose veins bilat, Other Cardiovascular Problems/Disorders - MILD ATHEROSCLEROSIS IN ABDOMINAL AORTA PER PATIENT//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 Denies: Hx Pacemaker/ICD Respiratory History: Reports: Other Respiratory Problems/Disorders - DEVIATED SEPTUM- MOSTLY ABLE TO BREATH THROUGH MOUTH Denies: Hx Asthma, Hx Chronic Obstructive Pulmonary Disease (COPD) GI History: Reports: Hx Gastroesophageal Reflux Disease - ON MEDICATION FOR, Other GI Disorders - GAS- PRN MEDICATION FOR/ Denies: Hx Ulcer History: Reports: Other Problems/Disorders - small nosule on kidney- being monitored Musculoskeletal History: Reports: Hx Arthritis - osteo all over, Hx Osteoporosis - OATEOPENIA, Other Musculoskeletal History - CERVICAL SPINAL STENOSIS/RIGHT BICEP MUSCLE-WILL MOVE UNINTENTIONALLY OCC Denies: Hx Rheumatoid Arthritis, Hx Scoliosis Sensory History: Reports: Hx Cataracts - BILATERAL, Hx Contacts or Glasses - GLASSES Denies: Hx Hearing Aid Opthamlomology History: Reports: Hx Cataracts - BILATERAL, Hx Contacts or Glasses - GLASSES Neurological History: Reports: Hx Migraine - in the past only, Hx Nerve Disease - neuropathy r/t chemo Denies: Hx Headaches, Other Neuro Impairments/Disorders Psychiatric History: Reports: Hx Anxiety - GENERALIZED-NOTHING SPECIFIC-NO MEDICATION FOR Denies: Hx Panic Disorder - Cancer History Hx Chemotherapy: Yes Hx Radiation Therapy: No - Surgical History Surgery Procedure, Year, and Place: PARTIAL THYROIDECTOMY 2004;. TONSILS A CHILD. Rt HIP REPLACEMENT. colectomy, hysterectomy, omentum removal november of 2017 Hx Anesthesia Reactions: No Infectious Disease History: No Infectious Disease History: Denies: Hx Clostridium Difficile, Hx Hepatitis, Hx Human Immunodeficiency Virus (HIV), Hx of Known/Suspected MRSA, Hx Shingles, Hx Tuberculosis, Hx Known/ Suspected VRE, Hx Known/Suspected VRSA, History Other Infectious Disease, Traveled Outside the [place] in Last 30 Days - Family History Known Family History: Positive: Cardiac Disease - Social History Alcohol Use: Rare Alcohol Amount: social Hx Substance Use: No Substance Use Type: Reports: None Hx Tobacco Use: No Smoking Status (MU): Never Smoked Tobacco Have You Smoked in the Last Year: No Review of Systems Negative: Fever, Chills Positive: Abdominal Pain, Nausea. Negative: Vomiting, Other - blood in stool Positive: Myalgia All Other Systems Reviewed And Are Negative: Yes Physical Exam - Summary Physical Exam Summary: GENERAL: Patient is a well-developed and nourished female who is lying comfortable in the stretcher. Patient is not in any acute respiratory distress. HEAD AND FACE: Normocephalic EYES: PERRLA, EOMI x 2. EARS: Hearing grossly intact. MOUTH: Oropharynx within normal limits. NECK: Supple, trachea is midline, no adenopathy, no JVD, no carotid bruit. CHEST: Symmetric, no tenderness at palpation LUNGS: Clear to auscultation bilaterally. No wheezing or crackles. CVS: Regular rate and rhythm, S1 and S2 present, no murmurs or gallops appreciated. ABDOMEN: Diffuse tenderness in the abd, worse in the epigastric region. Bowel sounds are normal. No abnormal abdominal pulsations. EXTREMITIES: Full ROM in all major joints, no edema, no cyanosis or clubbing. NEURO: Alert and oriented x 3. No acute neurological deficits. Speech is normal and follows commands. SKIN: Dry and warm Triage Information Reviewed: Yes Vital Signs On Initial Exam: Initial Vitals Temp Pulse Resp BP Pulse Ox 99.7 F 89 16 137/102 98 10/09/18 13:13 10/09/18 13:13 10/09/18 13:13 10/09/18 13:13 10/09/18 13:13 Vital Signs Reviewed: Yes Diagnostics - Vital Signs Vital Signs Temp Pulse Resp BP Pulse Ox 10/09/18 15:15 98.8 F 88 18 140/91 99 10/09/18 13:13 99.7 F 89 16 137/102 98 - Laboratory Lab Results: Lab Results 10/09/18 10/09/18 10/09/18 Range/Units 14:03 14:03 14:04 WBC 5.4 (3.5-10.8) 10^3/uL RBC 4.15 (3.70-4.87) 10^6 /uL Hgb 13.1 (12.0-16.0) g/dL Hct 38 (35-47) % MCV 93 (80-97) fL MCH 32 H (27-31) pg MCHC 34 (31-36) g/dL RDW 14 (10.5-15) % Plt Count 191 (150-450) 10^3/uL MPV 8.7 (7.4-10.4) fL Neut % (Auto) 53.3 % Lymph % (Auto) 39.1 % [facility] % (Auto) 6.1 % Eos % (Auto) 0.8 % Baso % (Auto) 0.7 % Absolute Neuts (auto) 2.9 (1.5-7.7) 10^3/ul Absolute Lymphs (auto) 2.1 (1.0-4.8) 10^3/ul Absolute Monos (auto) 0.3 (0-0.8) 10^3/ul Absolute Eos (auto) 0.0 (0-0.6) 10^3/ul Absolute Basos (auto) 0.0 (0-0.2) 10^3/ul Absolute Nucleated RBC 0.0 10^3/ul Nucleated RBC % 0.1 Sodium 135 (135-145) mmol/L Potassium 4.1 (3.5-5.0) mmol/L Chloride 102 (101-111) mmol/L Carbon Dioxide 27 (22-32) mmol/L Anion Gap 6 (2-11) mmol/L BUN 20 (6-24) mg/dL Creatinine 0.61 (0.51-0.95) mg/dL Est GFR ( Amer) 117.0 (>60) Est GFR (Non-Af Amer) 96.7 (>60) BUN/Creatinine Ratio 32.8 H (8-20) Glucose 100 (70-100) mg/dL Lactic Acid 0.6 (0.5-2.0) mmol/L Calcium 9.9 (8.6-10.3) mg/dL Total Bilirubin 0.70 (0.2-1.0) mg/dL AST 25 (13-39) U/L ALT 24 (7-52) U/L Alkaline Phosphatase 96 (34-104) U/L Troponin I 0.01 (<0.04) ng/mL C-Reactive Protein < 1.00 (<8.01) mg/L Total Protein 6.8 (6.4-8.9) g/dL Albumin 4.4 (3.2-5.2) g/dL Globulin 2.4 (2-4) g/dL Albumin/Globulin Ratio 1.8 (1-3) Lipase 25 (11.0-82.0) U/L Result Diagrams: 10/09/18 14:04 10/09/18 14:03 Lab Statement: Any lab studies that have been ordered have been reviewed, and results considered in the medical decision making process. - Ultrasound No standard instances Ultrasound Interpretation Completed By: Radiologist Summary of Ultrasound Findings: Abd US. 1. The common bile duct is at upper limits of normal measuring a maximum of 6 mm diameter but no visible choledocholithiasis. 2. No visible cholelithiasis and no abnormal gallbladder wall thickening and negative sonographic Hernandez's sign therefore not specific for acute cholecystitis. 3. The visualized portion of the pancreas appears unremarkable. ED physician has reviewed this report. - EKG 1335 Cardiac Rate: NL - 80bpm EKG Rhythm: Sinus Rhythm ST Segment: Normal Ectopy: PACs EKG Comparison: No Significant Change Summary of EKG Findings: EKG at 1335 shows NSR at 80bpm with PACs. Abdominal Pain Fem Course/Dx - Course Course Of Treatment: Pt is a 72 y/o F presenting to the ED with a chief complaint of abd pain. She has notable hx of CA dx'ed last year in her appendix that spread to her uterus and colon, with surgery and chemotherapy tx. She also reports GERD sx since July of this year. She reports nausea, abd pain described as burning, and BABIN. She denies fever, chills, vomiting, and blood in her stool. The pt is initially refusing all images of her abdomen d/t having a CT scan of her abd on 09/17/18, and being worried about the radiation exposure. I explained to the pt that things could get much worse even between that date and today, and that it was my medical recommendation that she have it done, but she refused. As of 1619, I spoke with Dr. Nelson who will be coming to evaluate the pt. Abd US shows: 1. The common bile duct is at upper limits of normal measuring a maximum of 6 mm diameter but no visible choledocholithiasis. 2. No visible cholelithiasis and no abnormal gallbladder wall thickening and negative sonographic Hernandez's sign therefore not specific for acute cholecystitis. 3. The visualized portion of the pancreas appears unremarkable. EKG at 1335 shows NSR at 80bpm with PACs. The pt will be discharged home with a dx of abd pain and instructions to follow up with Dr. Nelson tomorrow morning for an endoscopy. She will be instructed to only have fluids until midnight, then stop oral intake after midnight. - Diagnoses Provider Diagnoses: Abdominal pain Discharge - Sign-Out/Discharge Documenting (check all that apply): Patient Departure Patient Received Moderate/Deep Sedation with Procedure: No - Discharge Plan Condition: Stable Disposition: HOME Prescriptions: Pantoprazole TAB * [Protonix TAB*] 40 mg PO DAILY #30 tab Referrals: Kell Ramesh MD [Primary Care Provider] - Zonia Nelson MD [Medical Doctor] - Additional Instructions: Follow up with Dr. Nelson of GI in the morning for your endoscopy. Please follow Dr. Nelson's intake instructions. Return to the ED with any new or worsening symptoms. - Billing Disposition and Condition Condition: STABLE Disposition: Home - Attestation Statements Document Initiated by Scribe: Yes Documenting Scribe: Ena Potter Provider For Whom Reanna is Documenting (Include Credential): Briseida Swift MD. Scribe Attestation: IEna, scribed for Briseida Swift MD. on 10/10/18 at 1125. Scribe Documentation Reviewed: Yes Provider Attestation: The documentation as recorded by the scribe, Ena Potter accurately reflects the service I personally performed and the decisions made by me, Elida Swift MD. Status of Scribe Document: Viewed Consult Consult: [id number] - I spoke with Dr. Nelson about the pt's present condition who will be coming to evaluate the pt.
[2018-10-09 16:29] LABS: Urine Appearance Clear; Urine Bilirubin Negative (Negative); Urine Blood Negative (Negative); Urine Color Yellow; Urine Glucose Negative (Negative); Urine Ketones Negative (Negative); Urine Nitrite Negative (Negative); Urine Protein Negative (Negative); Urine Specific Gravity 1.005 (1.010-1.030); Urine Urobilinogen Negative (Negative)
--- NOTE | 2018-10-09 19:19 | CONS ---
GASTROENTEROLOGY CONSULT REPORT: DATE OF CONSULT: 10/09/18 LOCATION: The patient was seen in the ED. REASON FOR CONSULT: Abdominal pain. HISTORY OF PRESENT ILLNESS: Ms. 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 Ms. Taylor was diagnosed with appendiceal adenocarcinoma last year. She was noted to have metastatic disease to the omentum, uterus, ovaries, and fallopian tubes. She had a total laparoscopic hysterectomy and bilateral salpingo- oophorectomy as well as a right hemicolectomy and appendectomy. Surgeries performed at [facility]. She has completed FOLFOX with her last cycle in June 2018. She is followed locally by Dr. Lo as well as at [place] by Dr. Carcamo. She undergoes regular surveillance imaging. She had a CT chest, abdomen and pelvis on 09/17/18. CT chest demonstrated multiple small pulmonary nodules, which are felt to likely be intrapulmonary lymph nodes. Recommendation was to follow these nodules. The CT abdomen and pelvis was negative. Regarding current presentation, Ms. Taylor says that she began to notice upper abdominal discomfort in approximately July. Symptoms have progressed since this time. She describes an epigastric burning sensation as well as a left upper quadrant pain with radiation to the back. These symptoms occur multiple times per day. Associated with some reflux and occasional mild nausea. No vomiting. She has had longstanding intermittent dysphagia symptoms to solid foods. This symptom has not significantly changed over the past few months. She has noticed that it is difficult to maintain her weight as she feels that she has to eat quite a bit to do so. She has not had any significant weight loss recently, however. She has had a hard time sleeping because of the symptoms. She has not found that food clearly exacerbates the symptoms. She feels that lying on the opposite side of the pain seems to worsen the symptoms. She was placed on famotidine (initially 40 mg daily and now 20 mg twice daily), which initially seemed to help her symptoms. This medication does not seem to be controlling symptoms as well now. She uses Tylenol for the abdominal discomfort. She patient denies any NSAID use. She has regular bowel movements 2 times a day, although she feels that she is having to strain a bit more recently. She sees intermittent bleeding, which she feels is related to hemorrhoids. This blood is a tiny amount on the toilet paper. She is due to have a repeat colonoscopy in November or December per Oncology. PAST MEDICAL HISTORY: 1. Appendiceal adenocarcinoma. Metastatic to omentum, uterus, ovaries and fallopian tubes. Status post TLH/BSO, right hemicolectomy and an appendectomy, chemotherapy (last cycle in 06/2018). 2. Cervical spine stenosis. 3. Right hip replacement. 4. Mild hypertension. 5. Cataract surgeries. 6. History of a thyroid nodule, status post partial thyroidectomy. The nodule was benign. 7. Tonsillectomy. MEDICATIONS: Currently on: 1. Famotidine 20 mg twice a day. 2. Several supplements. ALLERGIES: SULFA causes hives. FAMILY HISTORY: Father with colon cancer, skin cancer, and lung cancer. He was a long-term smoker. Mother with history of a breast lumpectomy. Aunt with a history of ovarian cancer. SOCIAL HISTORY: The patient lives in [place]. She is . 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 No alcohol use. No drug use. Nonsmoker. REVIEW OF SYSTEMS: Anxiety. Complete review of systems negative except as above. PHYSICAL EXAM: Vital Signs: Afebrile, heart rate in the 80s, blood pressure 179/124, and 100% on room air. General: Elderly woman, in no acute distress, anxious appearing. Daughter and at bedside. HEENT: Mucous membranes moist. Cardiovascular: Regular rate and rhythm. Pulmonary: Breathing comfortably. Abdomen: Soft, nondistended. Mild tenderness in the epigastrium. No rebound tenderness or guarding. Extremities: No edema. Skin: No jaundice or rash on examined area of the skin. DIAGNOSTIC STUDIES/LAB DATA: Labs reviewed. White count 5.4, hemoglobin 13.1, hematocrit 38, platelet count 191. Comprehensive panel is normal. Lipase is normal. CRP is less than 1. Imaging: No imaging performed in the ER. CT chest, abdomen and pelvis reports from 09/17/18 reviewed and summarized in the HPI. IMPRESSION AND PLAN: Ms. Taylor is a 72-year-old woman with a history of metastatic appendiceal adenocarcinoma, status post right hemicolectomy with appendectomy and chemotherapy, who presents with 2 to 3 months of progressive upper abdominal discomfort. Ms. Taylor describes left upper quadrant discomfort with some radiation to the back as well as a dyspeptic-type burning discomfort. She has noticed some reflux-type symptoms occurring intermittently with partial improvement on famotidine. No weight loss, although she feels that she has to eat quite a bit to maintain her weight. Also has noted chronic dysphagia symptoms, which seem unchanged. Ms. Taylor is quite anxious about her symptoms, which is understandable given her significant malignancy history within the past year. I am reassured that she had these symptoms in September when the CT chest, abdomen and pelvis were performed as no abnormal findings were noted at that time. Labs today are unremarkable. Exam is notable only for mild epigastric tenderness. I discussed with Ms. Taylor that it is possible that her dyspeptic symptoms are related to gastroesophageal reflux disease. Peptic ulcer disease is also on the differential, though she does not have any clear risk factors for such a condition. I think it is appropriate to obtain an abdominal ultrasound to ensure her gallbladder and pancreas are imaged, although I have a low suspicion that this is biliary colic, pancreatitis, or pancreatic malignancy. I would recommend empiric PPI therapy and endoscopic evaluation. Assuming the ultrasound is unrevealing, I think the patient would be appropriate to be discharged with a plan for an outpatient EGD tomorrow. Thank you very much for this consult. [id number]/[facility] #: [id number] [place]
[2018-10-09 19:57] VITALS: BP 134/94
== END 2018-10-09 19:57 | disposition home or self-care (01) ==
LOC: ED 13:11
DX: R10.11 Right upper quadrant pain (principal); Z85.9 Personal history of malignant neoplasm, unspecified; F41.1 Generalized anxiety disorder; E07.9 Disorder of thyroid, unspecified; I10 Essential (primary) hypertension; I73.9 Peripheral vascular disease, unspecified; K21.9 Gastro-esophageal reflux disease without esophagitis
CPT/HCPCS: 36415; 76705; 80053; 81003; 83605; 83690; 84484; 85025; 86140; 93005; 96361; 96374; 99282

== ENCOUNTER 2019-07-08 12:17 | Emergency (ER) | payer MEDICARE, OTHER ==
--- OUTSIDE RECORDS SUMMARY | 2019-07-08 12:27 | XMS REPORT | Continuity of Care Document ---
:1945 External Reference #:[id number] Author Name Carlitos Armijo M.D. Address [address] 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 Problems Active Problems Provider Date 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 Essential hypertension Onset: 03/19/2015 Hyperlipidemia Onset: 04/01/2010 Localized, primary osteoarthritis of the pelvic region and Onset: 10/13/2015 thigh Spinal stenosis in cervical region Onset: 05/19/2017 Social History Type Date Description Comments Sex Unknown ETOH Use Rarely consumes alcohol Tobacco Use Start: Unknown Patient has never smoked Smoking Status Reviewed: 06/12/19 Patient has never smoked Allergies, Adverse Reactions, Alerts Active Allergies Reaction Severity Comments Date Trimox 09/04/2017 Sulfamethoxazole / Trimethoprim Free Text 09/11/2018 Sulfa Antibiotics 09/04/2017 Yellow [place]et Venom Protein 09/11/2018 Opium 09/04/2017 Morphine 10/04/2017 Medications Active Medications SIG Qnty Indications Ordering Provider Date Tums prn Carlitos Armijo, 07/05/2018 Tamera Galo Docusate Sodium as needed 60caps Unknown 11/17/2017 100mg Capsules Epipen 2-Kip Use Once as 2units Gadiel KELLY, 11/07/2009 Directed Marleni 0.3mg/0.3ML Solution Auto-Inject Famotidine Unknown 40mg Tablets Vitamin C Unknown Capsules Vitamin B6 Unknown Tablets Vitamin D3 Unknown Capsules Vitamin A Unknown Capsules Osteoprime Ultra Unknown Tablets Cod Liver Oil Unknown Capsules Coenzyme Q-10 Unknown Capsules Tylenol prn Unknown Capsules Vitamin B12 1 by mouth every Unknown 100mcg day Tablets Glucosamine Unknown Chondroitin Complex Plus MSM/Triple Strength Tablets Immunizations CPT Code Status Date Vaccine Lot # 12485 Given 03/08/2017 Influenza Virus Vaccine, Quadrivalent, Split, Preservative Free 97250 Given 02/24/2016 Influenza Virus Vaccine, Quadrivalent, Split, Preservative Free 95222 Given 03/30/2015 Pneumococcal Conjugate Vaccine 13 Valent For Intramuscular Use 78958 Given 03/19/2015 Influenza Virus Vaccine, Quadrivalent, Split, Preservative Free 64026 Given 03/17/2014 Influenza Virus Vaccine Split Virus Use For Individual 3Yr Older 20708 Given 02/28/2013 Influenza Virus Split 3 Yrs And Above For Intramuscular Use 30841 Given 02/12/2012 Influenza Virus Split 3 Yrs And Above For Intramuscular Use 91908 Given 01/26/2012 Pneumococcal Vaccine 2Yrs Or Older 82125 Given 03/20/2011 Influenza Virus Split 3 Yrs And Above For Intramuscular Use 97932 Given 07/05/2010 Tetanus, Diphtheria Toxoids/Acellular Pertussis Vaccine 7 Or > 18768 Given 04/27/2008 Influenza Virus Split 3 Yrs And Above For Intramuscular Use 60862 Given 04/27/2008 Influenza Virus Split 3 Yrs And Above For Intramuscular Use Vital Signs Date Vital Result Comment 10/29/2018 12:02pm Intraocular Pressure Right Eye 14 mmHg Intraocular Pressure Left Eye 14 mmHg 10/01/2018 10:22am Intraocular Pressure Right Eye 12 mmHg Intraocular Pressure Left Eye 12 mmHg Results Description No Information Available Procedures Date Code Description Status 06/12/2019 08608 Remove Secondary Cataract, Laser (Yag) Completed 06/05/2019 91742 Remove Secondary Cataract, Laser (Yag) Completed 04/30/2019 68376 Eye Exam Est Intermediate Completed Medical Devices Description No Information Available Encounters Description No Information Available Assessments Date Code Description Provider 06/12/2019 H26.492 Other secondary cataract, left eye Carlitos Armijo M.D. 06/05/2019 H26.491 Other secondary cataract, right eye Carlitos Armijo M.D. 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
--- OUTSIDE RECORDS SUMMARY | 2019-07-08 12:27 | XMS REPORT | Continuity of Care Document ---
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 Essential hypertension Onset: 03/19/2015 Hyperlipidemia Onset: 04/01/2010 Localized, primary osteoarthritis of the pelvic region and Onset: 10/13/2015 thigh Spinal stenosis in cervical region Onset: 05/19/2017 Social History Type Date Description Comments Sex Unknown ETOH Use Rarely consumes alcohol Tobacco Use Start: Unknown Patient has never smoked Smoking Status Reviewed: 06/19/19 Patient has never smoked Allergies, Adverse Reactions, Alerts Active Allergies Reaction Severity Comments Date Trimox 09/04/2017 Sulfamethoxazole / Trimethoprim Free Text 09/11/2018 Sulfa Antibiotics 09/04/2017 [place]et Venom Protein 09/11/2018 Opium 09/04/2017 Morphine 10/04/2017 Medications Active Medications SIG Qnty Indications Ordering Provider Date Elisabeth Armijo, 07/05/2018 Tamera Galo Docusate Sodium as needed 60caps Unknown 11/17/2017 100mg Capsules Epipen 2-Kip Use Once as 2unlinh Ramesh MD, 11/07/2009 Directed Marleni 0.3mg/0.3ML Solution Auto-Inject Famotidine Unknown 40mg Tablets Vitamin C Unknown Capsules Vitamin B6 Unknown Tablets Vitamin D3 Unknown Capsules Vitamin A Unknown Capsules Osteoprime Ultra Unknown Tablets Cod Liver Oil Unknown Capsules Coenzyme Q-10 Unknown Capsules Tylenol prn Unknown Capsules Vitamin B12 1 by mouth every Unknown 100mcg day Tablets Glucosamine Unknown Chondroitin Complex Plus MSM/Triple Strength Tablets Gabapentin take 1 tablet Unknown 800mg four times daily Tablets if needed Immunizations CPT Code Status Date Vaccine Lot # [id number] Given 03/08/2017 Influenza Virus Vaccine, Quadrivalent, Split, Preservative Free 88271 Given 02/24/2016 Influenza Virus Vaccine, Quadrivalent, Split, Preservative Free 17363 Given 03/30/2015 Pneumococcal Conjugate Vaccine 13 Valent For Intramuscular Use 85808 Given 03/19/2015 Influenza Virus Vaccine, Quadrivalent, Split, Preservative Free 89856 Given 03/17/2014 Influenza Virus Vaccine Split Virus Use For Individual 3Yr Older 49564 Given 02/28/2013 Influenza Virus Split 3 Yrs And Above For Intramuscular Use 39719 Given 02/12/2012 Influenza Virus Split 3 Yrs And Above For Intramuscular Use 34774 Given 01/26/2012 Pneumococcal Vaccine 2Yrs Or Older 38254 Given 03/20/2011 Influenza Virus Split 3 Yrs And Above For Intramuscular Use 25788 Given 07/05/2010 Tetanus, Diphtheria Toxoids/Acellular Pertussis Vaccine 7 Or > 40983 Given 04/27/2008 Influenza Virus Split 3 Yrs And Above For Intramuscular Use 07902 Given 04/27/2008 Influenza Virus Split 3 Yrs And Above For Intramuscular Use Vital Signs Date Vital Result Comment 10/29/2018 12:02pm Intraocular Pressure Right Eye 14 mmHg Intraocular Pressure Left Eye 14 mmHg 10/01/2018 10:22am Intraocular Pressure Right Eye 12 mmHg Intraocular Pressure Left Eye 12 mmHg Results Description No Information Available Procedures Date Code Description Status 06/12/2019 95155 Remove Secondary Cataract, Laser (Yag) Completed 06/05/2019 18497 Remove Secondary Cataract, Laser (Yag) Completed 04/30/2019 64601 Eye Exam Est Intermediate Completed Medical Devices Description No Information Available Encounters Description No Information Available Assessments Date Code Description Provider 06/19/2019 Z96.1 Presence of intraocular lens Tyler Marcus, OD 06/19/2019 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 06/05/2019 H26.491 Other secondary cataract, right eye Carlitos Armijo M.D. 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
--- OUTSIDE RECORDS SUMMARY | 2019-07-08 12:27 | XMS REPORT | Continuity of Care Document ---
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 Onset: 04/01/2010 Essential hypertension Kell Ramesh M.D. 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 Onset: 05/19/2017 Social History Type Date Description Comments Sex Unknown Tobacco Use Start: Unknown Never Smoked was exposed to second Cigarettes hand smoke in childhood to age 19. ETOH Use Drinks Alcoholic 1/2 glass of wine or Beverages Rarely beer rarely Tobacco Use Start: Unknown Patient has never smoked Recreational Drug Use Denies Drug Use Smoking Status Reviewed: 05/06/19 Patient has never smoked Exercise Type/Frequency Exercises regularly walk or stationary bike 5-6 times per week, strength exercises 3-4 times per week Allergies, Adverse Reactions, Alerts Active Allergies Reaction Severity Comments Date Sulfa rash see notes 11/30/92 07/20/2009 Bactrim Urticaria 07/20/2009 Yellow Jacket Venom Protein 07/25/2018 Trimoxazole Hives 12/10/2018 Medications Active Medications SIG Qnty Indications Ordering Provider Date Antacid 1 -2 tab by mouth Unknown 05/05/2019 500mg Chewtabs as needed (max 8 grams a day) Magnesium Glycinate 250 mg tab by Unknown 05/05/2019 mouth daily Powder Pain Relieving once a day as 6units S33.5xxD Julisa Haile, 03/18/2019 Lidocaine Patch needed M.DRachel 4% Patches Curcumin daily Julisa Haile, 03/11/2019 M.DRachel Epinephrine Use Once as 2units Kell Ramesh, 09/29/2018 0.3mg/0.3ML Directed as M.D. Solution Auto-Inject needed Multivitamin Adult 1 by mouth every Unknown day Tablets Tylenol Extra 1-2 tabs by mouth Unknown Strength every 6 hours as 500mg Tablets needed Ibuprofen 2 tabs by mouth Unknown 200mg every 6 hours as Capsules needed Probiotic 1 by mouth every Unknown Capsules day Lglutamine daily Unknown Zeel prn Unknown Ointment Maitake Mushroom 20 drops twice Unknown Tincture daily Essiac Tonic 2 oz twice daily Unknown Liquid Lidocaine-Prilocaine Use when port is Unknown flushed 2.5-2.5% Cream Traumeel prn Unknown Gel Vitamin C 1 by mouth every Unknown 500mg other day Chewtabs Fish Oil Concentrate every day 30caps Unknown 1000mg Capsules Vitamin D3 1 by mouth every 30caps Unknown 2000Unit day Capsules Coenzyme Q-10 1 po qd Unknown 100mg Capsules History Medications Levofloxacin one by mouth daily 7tabs Joseph Jeffries 04/21/2019 - 500mg for 7 days Clover Ramirez 05/05/2019 Tablets Nitrofurantoin Monohyd take one tablet 10caps Paresh Branch 04/11/2019 - Macro every 12 hours for M.D. 04/21/2019 100mg Capsules 5 days Cyclobenzaprine HCL take 1 tablet by 14tabs S33.5x Julisa Haile, 2018 - 5mg mouth twice a day xD M.D. 04/08/2019 Tablets Walker as needed 1units S33.5x Julisa Haile, 03/18/2019 - Misc xD M.DRachel 04/21/2019 Hydrocodone 1 by mouth 4 times 45tabs S22.42 Kell 03/12/2019 - Bitartrate/Acetaminoph a day as needed Manuel Ramesh M.D. 04/08/2019 en 5-325mg Tablets Acetaminophen-Codeine 1/2 -1 tab by 30tabs Julisa Haile, 03/12/2019 - #3 mouth every 8 hours M.DRachel 04/08/2019 300-30mg Tablets as needed for pain Magnesium take one 30caps Julisa Haile, 03/11/2019 - 300mg Capsules capsule/tablet M.D. 05/06/2019 daily by mouth occasionally Acetaminophen-Codeine 1 tab every 8 hours 30tabs S22.42 Julisa Haile, - #2 for severe pain as xA M.D. 03/12/2019 300-15mg Tablets needed Medications Administered in Office Medication SIG Qnty Indications Ordering Provider Date Records Fee Julisa Haile M.D. 04/29/2019 Injection Immunizations CPT Code Status Date Vaccine Reaction Lot # [id number] Given 04/08/2019 Influenza Virus Vaccine, [id number] Quadrivalent ([id number]), Derived From Cell 49612 Given 03/08/2017 Influenza Virus Vaccine, [id number] Quadrivalent, Split, Preservative Free 38777 Given 02/24/2016 Influenza Virus Vaccine, no reaction noted ... [id number] Quadrivalent, Split, hh Preservative Free 53203 Given 03/30/2015 Pneumococcal Conjugate [id number] Vaccine 13 Valent For Intramuscular Use 49740 Given 03/19/2015 Influenza Virus Vaccine, [id number] Quadrivalent, Split, Preservative Free 43660 Given 03/17/2014 Flu Vaccine Split Virus [id number] Preservative Free For Indiv 3Yr Older [id number] Given 02/28/2013 Fluvirin Im 3Yrs And Older Q2038 Given 02/12/2012 Fluzone Vaccine [id number] 20147 Given 01/26/2012 Pneumonia Vaccine [id number] 47427 Given 03/20/2011 Influenza Virus 3Yrs & Over [id number] 34023 Given 07/05/2010 Tdap - Tetanus/Diptheria/Acellular Pertussis 76791 Given 04/27/2008 Influenza Virus 3Yrs & Over 57902 Given 04/27/2008 Influenza Virus 3Yrs & Over Vital Signs Date Vital Result Comment 05/06/2019 3:19pm Height 63 inches 5'3" Weight 135.00 lb with shoes/sweater Heart Rate 80 /min BP Systolic 158 mmHg Rue (regular cuff) BP Diastolic 92 mmHg Rue (regular cuff) BP Systolic Sitting 150 mmHg Lue BP Diastolic Sitting 90 mmHg Lue BP Systolic Standing 142 mmHg Lue BP Diastolic Standing 90 mmHg Lue BMI (Body Mass Index) 23.9 kg/m2 04/21/2019 2:48pm Height 63 inches 5'3" Weight 135.00 lb Heart Rate 102 /min BP Systolic Sitting 128 mmHg BP Diastolic Sitting 72 mmHg Body Temperature 100.7 F O2 % BldC Oximetry 94 % BMI (Body Mass Index) 23.9 kg/m2 Results Test Acquired Date Facility Test Result H/L Range Note Urinalysis Profile 05/26/2019 [facility] Urine Color Straw [address] [place] [address] [phone] Urine Appearance Clear Urine Specific [place] 1.008 Low 1.010-1.030 Urine pH 6.0 Normal 5-9 Urine Urobilinogen Negative Negative Urine Ketones Negative Negative Urine Protein Negative Negative Urine Leukocytes Negative Negative Urine Blood Negative Negative Urine Nitrite Negative Negative Urine Bilirubin Negative Negative Urine Glucose Negative Negative Ua Routine 04/21/2019 Provider Scribe In House Ua Specific [place] 1.030 Ua PH 5 Ua Color brown Ua Appera cloudy Ua WBC trace Ua Protein + Ua Glucose normal Ua Ketones negative Ua Bilirubin negative Ua Urobilinogen negative Ua Nitrite + Ua Occult Blood ++ Urine Culture And 04/21/2019 [facility] Urine Culture SEE RESULT [address] [place] [address] [phone] Influenza A & B 04/21/2019 [facility] Flu AB (SEE NOTE) [address] [place] [address] [phone] Influenza A Molecular NEGATIVE Negative 3 Influenza B Molecular NEGATIVE Negative Urine Culture And 04/11/2019 [facility] Urine Culture SEE RESULT [address] [place] [address] [phone] Urinalysis Profile 04/11/2019 [facility] Urine Color Tash [address] [place] [address] [phone] Urine Appearance Cloudy Urine Specific [place] 1.026 Normal 1.010-1.030 Urine pH 5.0 Normal 5-9 Urine Urobilinogen Negative Negative Urine Ketones Negative Negative Urine Protein 2+(100 mg/dL) Abnormal Negative Urine Leukocytes 1+ Abnormal Negative Urine Blood 3+ Abnormal Negative Urine Nitrite Positive Abnormal Negative Urine Bilirubin Negative Negative Urine Glucose Negative Negative Urine White Blood Cell 3+(>20/hpf) Abnormal Absent Urine Red Blood Cell 3+(>10/hpf) Abnormal Absent Urine Bacteria 1+ Abnormal Absent Urine Squamous Epithelial Cell Present Abnormal Absent Urine Calcium Oxalate Cryst Present Abnormal Absent CBC No Diff 03/14/2019 [facility] White Blood 5.1 10^3/uL Normal 3.5-10.[address] [place] [address] [phone] Red Blood Count 3.64 10^6/uL Low 3.70-4.87 Hemoglobin 11.9 g/dL Low 12.0-16.0 Hematocrit 34 % Low 35-47 Mean Corpuscular Volume 94 fL Normal 80-97 Mean Corpuscular Hemoglobin 33 pg High 27-31 Mean Corpuscular HGB Conc 35 g/dL Normal 31-36 Red Cell Distribution Width 14 % Normal 10-15 Platelet Count 275 10^3/uL Normal 150-450 Mean Platelet Volume 8.8 fL Normal 7.4-10.4 Comp Metabolic Panel 03/14/2019 [facility] Sodium 132 mmol/L Low 135-[address] [place] [address] [phone] Potassium 4.3 mmol/L Normal 3.5-5.0 Chloride 99 mmol/L Low 101-111 Co2 Carbon Dioxide 29 mmol/L Normal 22-32 Anion Gap 4 mmol/L Normal 2-11 Glucose 97 mg/dL Normal 70-100 Blood Urea Nitrogen 24 mg/dL Normal 6-24 Creatinine 0.56 mg/dL Normal 0.51-0.95 BUN/Creatinine Ratio 42.9 High 8-20 Calcium 9.5 mg/dL Normal 8.6-10.3 Total Protein 6.3 g/dL Low 6.4-8.9 Albumin 4.2 g/dL Normal 3.2-5.2 Globulin 2.1 g/dL Normal 2-4 Albumin/Globulin Ratio 2.0 Normal 1-3 Total Bilirubin 0.60 mg/dL Normal 0.2-1.0 Alkaline Phosphatase 191 U/L High 34-104 Alt 30 U/L Normal 7-52 Ast 19 U/L Normal 13-39 Egfr Non- 106.4 >60 Egfr 128.8 >60 5 Laboratory 03/14/2019 [facility] Carcinoembryonic 0.7 Normal 0.1-5.0 6 test finding [address] Antigen Cea ng/[place] [address] [phone] Order 01/08/2019 Provider Scribe In-House Holter Monitor <pending > Basic 01/08/2019 [facility] Sodium 136 Normal 135-[address] mmol/[place] [address] [phone] Potassium 4.4 mmol/L Normal 3.5-5.0 Chloride 100 mmol/L Low 101-111 Co2 Carbon Dioxide 31 mmol/L Normal 22-32 Anion Gap 5 mmol/L Normal 2-11 Glucose 89 mg/dL Normal 70-100 Blood Urea Nitrogen 17 mg/dL Normal 6-24 Creatinine 0.62 mg/dL Normal 0.51-0.95 BUN/Creatinine Ratio 27.4 High 8-20 Calcium 9.8 mg/dL Normal 8.6-10.3 Egfr Non- 94.6 >60 Egfr 114.5 >60 7 Laboratory test 01/08/2019 [facility] Magnesium 2.2 mg/dL Normal 1.9-2.[address] [place] [address] [phone] TSH (Thyroid Stim Horm) 2.29 mcIU/mL Normal 0.34-5.60 Hemoglobin/Hematocrit 01/08/2019 [facility] Hemoglobin 12.8 Normal 12.0-16.[address] g/[place] [address] [phone] Hematocrit 37 % Normal 35-47 Laboratory 12/17/2018 [facility] Carcinoembryonic 0.8 Normal 0.1-5.0 8 test finding [address] Antigen Cea ng/[place] [address] [phone] Comp 12/17/2018 [facility] Sodium 136 Normal 135-[address] mmol/[place] [address] [phone] Potassium 4.1 mmol/L Normal 3.5-5.0 Chloride 102 mmol/L Normal 101-111 Co2 Carbon Dioxide 28 mmol/L Normal 22-32 Anion Gap 6 mmol/L Normal 2-11 Glucose 94 mg/dL Normal 70-100 Blood Urea Nitrogen 16 mg/dL Normal 6-24 Creatinine 0.62 mg/dL Normal 0.51-0.95 BUN/Creatinine Ratio 25.8 High 8-20 Calcium 9.4 mg/dL Normal 8.6-10.3 Total Protein 6.2 g/dL Low 6.4-8.9 Albumin 4.2 g/dL Normal 3.2-5.2 Globulin 2.0 g/dL Normal 2-4 Albumin/Globulin Ratio 2.1 Normal 1-3 Total Bilirubin 0.60 mg/dL Normal 0.2-1.0 Alkaline Phosphatase 96 U/L Normal 34-104 Alt 21 U/L Normal 7-52 Ast 21 U/L Normal 13-39 Egfr Non- 94.6 >60 Egfr 114.5 >60 9 CBC Auto 12/17/2018 [facility] White Blood 4.8 10^3/uL Normal 3.5-10.[address] [place] [place] [address] [phone] Red Blood Count 4.01 10^6/uL Normal 3.70-4.87 Hemoglobin 12.8 g/dL Normal 12.0-16.0 Hematocrit 37 % Normal 35-47 Mean Corpuscular Volume 93 fL Normal 80-97 Mean Corpuscular Hemoglobin 32 pg High 27-31 Mean Corpuscular HGB Conc 34 g/dL Normal 31-36 Red Cell Distribution Width 14 % Normal 10-15 Platelet Count 182 10^3/uL Normal 150-450 Mean Platelet Volume 9.2 fL Normal 7.4-10.4 Abs Neutrophils 2.2 10^3/uL Normal 1.5-7.7 Abs Lymphocytes 2.1 10^3/uL Normal 1.0-4.8 Abs Monocytes 0.4 10^3/uL Normal 0-0.8 Abs Eosinophils 0.1 10^3/uL Normal 0-0.6 Abs Basophils 0.0 10^3/uL Normal 0-0.2 Abs Nucleated RBC 0.0 10^3/uL Granulocyte % 45.6 % Lymphocyte % 44.3 % Monocyte % 7.4 % Eosinophil % 2.1 % Basophil % 0.6 % Nucleated Red Blood Cells % 0.1 BUN/Creat/GFR 12/17/2018 [facility] Poc Blood Urea 15 mg/dL Normal 8-[address] [place] [address] [phone] Poc Creatinine 0.7 mg/dL Normal 0.6-1.3 10 Poc BUN/Creatinine Ratio 21.4 High 8-20 Egfr Non- 82.3 >60 Egfr 99.5 >60 11 1 SEE RESULT BELOW Name: CHRIST TAYLOR : [address]: Paresh Branch MD Acct: [id number] Unit: [id number] AGE: 73 Location: [facility] Re04/21/19 SEX: F Status: REG REF SPEC: [id number] [place]: 04/21/[address]: Paresh Branch MD REQ: [id number] RECD: 04/21/19 STATUS:COMP _ SOURCE: URINE SPDESC: ORDERED: Urine Culture COMMENTS: [id number] Urine Source: Random Procedure Result Reported Site Urine Culture Final 04/23/19- 832 ML No growth of clinically significant organisms * ML - Main Lab . END OF REPORT DEPARTMENT OF PATHOLOGY, [address] [place] [address] Jimmy Powers M.D. Director [facility] # [id number] 2 Suboptimal collection technique may reduce sensitivity of test. Refer to the [employer] Test Catalog for collection information: [email or web address] As with all diagnostic procedures, the laboratory results obtained should be used in conjunction with other clinical information available to the physician, including confirmation by another method, as applicable. 3 Parcel Post Clerk: [id number] 4 SEE RESULT BELOW Name: CHRIST TAYLOR : [address]: Iwona Claire MD Acct: [id number] Unit: [id number] AGE: 73 Location: [facility] Re04/11/19 SEX: F Status: REG REF SPEC: [id number] [place]: 04/11/[address]: Iwona Claire MD REQ: [id number] RECD: 04/11/19 STATUS:COMP _ SOURCE: URINE SPDESC: ORDERED: Urine Culture COMMENTS: [id number] QUERIES: Urine Source: Random Procedure Result Reported Site Urine Culture Final 04/13/19- 0846 ML Organism 1 ESCHERICHIA COLI [place] Count >100,000 (Many) CFU/ML 1. ESCHERICHIA COLI M.I.C. RX --------- ------ Ampicillin >=32 R Cefazolin 16 I Cefepime <=1 S Ceftriaxone <=1 S Ciprofloxacin >=4 R Gentamicin >=16 R Levofloxacin >=8 R Meropenem <=0.25 S Nitrofurantoin <=16 S Tetracycline <=1 S Pipercillin/Tazobactam >=128 R Trimethoprim/Sulfamethoxazole <=20 S Amoxicillin/Clavulanic Acid R Aztreonam <=1 S Contact the Microbiology Department for any additional antibiotic reporting. * ML - Main Lab . END OF REPORT DEPARTMENT OF PATHOLOGY, [address] [place] [address] Jimmy Powers M.D. Director [facility] # [id number] 5 Because ethnic data is not always [...] The testing method is an immunoenzymatic assay mechanical piping designer by [employer] performed on Pfenex DXI 600. Do not interpret serum CEA levels as absolute evidence of the presence or the absence of malignant disease. Use serum CEA in conjunction with information from the clinical evaluation of the patient and other diagnostic procedures. 7 Because ethnic data is not always readily [...] 15-29 5 Kidney failure <15 (or dialysis) 8 Nonsmokers: < 2.9 ng/mL Some smokers may have elevated CEA, usually <5.0 ng/mL. Serum markers are not specific for malignancy, and values may vary by method. The testing method is an immunoenzymatic assay mechanical piping designer by Pfenex performed on Magy Eladio DXI 600. Do not interpret serum CEA levels as absolute evidence of the presence or the absence of malignant disease. Use serum CEA in conjunction with information from the clinical evaluation of the patient and other diagnostic procedures. 9 Because ethnic data is not always readily [...] 15-29 5 Kidney failure <15 (or dialysis) 10 Parcel Post Clerk: [id number] 11 Because ethnic data is not always readily [...] 15-29 5 Kidney failure <15 (or dialysis) Procedures Date Code Description Status 05/15/2019 48180 ECHO Transthoracic, Real-Time 2D With Doppler And Completed Color Flow 05/15/2019 48813 ECHO Transthoracic, Real-Time 2D With Doppler And Completed Color Flow 05/06/2019 39064 EKG Tracing & Interpretation Completed 01/08/2019 30268 ECG Monitor/Recording W/Visual Superimposition Completed Scanning 12/12/2018 [id number] Colonoscopy Completed 09/18/2017 [id number] Bone Mineral Density Test Completed 07/17/2017 [id number] Colonoscopy Completed 06/29/2017 51048972 Mammogram Completed 02/12/2017 077079044 Diabetic Foot Exam Completed 03/30/2015 [id number] Mammogram Completed 03/30/2015 [id number] Bone Mineral Density Test Completed 09/19/2013 19206898 Mammogram Completed 07/22/2012 20150784 Mammogram Completed 07/22/2012 412328284 Bone Mineral Density Test Completed 05/31/2012 [id number] Colonoscopy Completed 05/30/2011 52832114 Mammogram Completed 04/14/2010 957071731 Bone Mineral Density Test Completed 01/17/2010 [id number] Mammogram Completed 04/04/2007 29918868 Colonoscopy Completed Medical Devices Description No Information Available Encounters Type Date Location Provider Dx Diagnosis Office Visit 05/06/2019 [facility] Flaca Shah R00.2 Palpitations 3:40p Clover Carroll E78.5 Hyperlipidemia, unspecified R07.9 Chest pain, unspecified R06.02 Shortness of breath I10 Essential (primary) hypertension Z82.49 Family hx of ischem heart dis and oth dis of the circ sys R94.31 Abnormal electrocardiogram [ECG] [EKG] Office Visit 04/08/2019 11:50a Provider Scribe Internal Julisa S33.5xxD Sprain of Medicine Tawana Haile M.D. ligaments of Ccmob lumbar spine, subsequent encounter S33.5xxD Sprain of ligaments of lumbar spine, subsequent encounter Office Visit 03/18/2019 10:50a Provider Scribe Internal Julisa S33.5xxA Sprain of Medicine Tawana Haile M.D. ligaments of Ccm[place] lumbar spine, initial encounter S33.5xxA Sprain of ligaments of lumbar spine, initial encounter Office Visit 01/08/2019 12:10p Provider Scribe Internal Julisa Haile, R00.2 [facility] 12/10/2018 2:20p Zackery Internal Julisa Haile, R00.2 [facility] M.DRachel Assessments Date Code Description Provider 05/15/2019 R00.2 Palpitations Flaca Carroll M.D. 05/15/2019 R00.2 Palpitations Ica ECHO Schedule 05/15/2019 R07.9 Chest pain, unspecified Ica ECHO Schedule 05/15/2019 R06.02 Shortness of breath Ica ECHO Schedule 05/15/2019 I10 Essential (primary) hypertension Flaca Carroll M.D. 05/15/2019 I10 Essential (primary) hypertension Ica ECHO Schedule 05/06/2019 R00.2 Palpitations Flaca Carroll M.D. 05/06/2019 E78.5 Hyperlipidemia, unspecified Flaca Carroll M.D. 05/06/2019 R07.9 Chest pain, unspecified Flaca Carroll M.D. 05/06/2019 R06.02 Shortness of breath Flaca Carroll M.D. 05/06/2019 I10 Essential (primary) hypertension Flaca Carroll M.D. 05/06/2019 Z82.49 Family history of ischemic heart Flaca Carroll M.D. disease and other diseases of the circulatory system 05/06/2019 R94.31 Abnormal electrocardiogram [ECG] Flaca Carroll M.D. [EKG] 04/21/2019 R50.9 Fever, unspecified Joseph Ramirez M.D. 04/21/2019 R30.0 Dysuria Joseph Ramirez M.D. 04/08/2019 S33.5xxD Sprain of ligaments of lumbar spine, Julisa Haile M.D. subsequent encounter 04/08/2019 Z23 Encounter for immunization Nurse Visit A 04/08/2019 S33.5xxD Sprain of ligaments of lumbar spine, Julisa Haile M.D. subsequent encounter 03/18/2019 S33.5xxA Sprain of ligaments of lumbar spine, Julisa Haiel M.D. initial encounter 03/18/2019 S33.5xxA Sprain of ligaments of lumbar spine, Julisa Haiel M.D. initial encounter 03/11/2019 S22.42xA Multiple fractures of ribs, left Julisa Haile M.D. side, initial encounter for closed fracture 03/11/2019 S33.5xxA Sprain of ligaments of lumbar spine, Julisa Haile M.D. initial encounter 03/11/2019 R94.6 Abnormal results of thyroid function Julisa Haile M.D. studies 01/09/2019 R00.2 Palpitations Im Nurse Holter Monitor 01/08/2019 R00.2 Palpitations Julisa Haile M.D. 01/08/2019 R00.2 Palpitations Im Nurse Holter Monitor 12/10/2018 R00.2 Palpitations Julisa Haile M.D. Plan of Treatment Future Appointment(s):07/08/2019 10:30 am - Flaca Carroll M.D. at [facility]07/08/2019 10:00 am - Floral ECHO Schedule at [facility]07/14/2019 1:40 pm - Flaca Carroll M.D. at [facility]09/15/2019 11:00 am - Kell Ramesh M.D. at [facility] - [facility]04/21/2019 - Joseph Ramirez M.D.R50.9 Fever, unspecifiedComments: Recurrent dysuria sx yesterday after recent Macrobid Rx for a UTI. Culture showed E coli sensitive to the Rx, and Macrobid resumed. Today pt with new sx of fevers to 101-102, chills, malaise, some nausea. Still with dysuria. Flu testR30.0 DysuriaComments:Repeat culture obtained Functional Status Description No Information Available Mental Status Description No Information Available Referrals Refer to Reason for Referral Status Appt Date Emily Lorenzo MD Sent [address] [place] [address] [phone] Luis Alfredo Molina, DO, [facility] Sent 05/06/[address] [place] [address] [phone] post trauma stress Created
--- OUTSIDE RECORDS SUMMARY | 2019-07-08 12:27 | XMS REPORT | Continuity of Care Document ---
:1945 External Reference #:[id number] Author Name Carlitos Armijo M.D. Address [address] [place] [address] Care Team Providers Name Role Phone Marleni Ramesh MD Care Team Information Nitrator Operator [phone] [facility] Care Team Information Nitrator Operator Problems Active Problems Provider Date 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 Essential hypertension Onset: 03/19/2015 Hyperlipidemia Onset: 04/01/2010 Localized, primary osteoarthritis of the pelvic region and Onset: 10/13/2015 thigh Spinal stenosis in cervical region Onset: 05/19/2017 Social History Type Date Description Comments Sex Unknown ETOH Use Rarely consumes alcohol Tobacco Use Start: Unknown Patient has never smoked Smoking Status Reviewed: 06/05/19 Patient has never smoked Allergies, Adverse Reactions, [...] CPT Code Status Date Vaccine Lot # [id number] Given 03/08/2017 Influenza Virus Vaccine, Quadrivalent, Split, Preservative Free 46843 Given 02/24/2016 Influenza Virus Vaccine, Quadrivalent, Split, Preservative Free 55004 Given 03/30/2015 Pneumococcal Conjugate Vaccine 13 Valent For Intramuscular Use 21527 Given 03/19/2015 Influenza Virus Vaccine, Quadrivalent, Split, Preservative Free 93091 Given 03/17/2014 Influenza Virus Vaccine Split Virus Use For Individual 3Yr Older 06784 Given 02/28/2013 Influenza Virus Split 3 Yrs And Above For Intramuscular Use 49587 Given 02/12/2012 Influenza Virus Split 3 Yrs And Above For Intramuscular Use 84298 Given 01/26/2012 Pneumococcal Vaccine 2Yrs Or Older 82792 Given 03/20/2011 Influenza Virus Split 3 Yrs And Above For Intramuscular Use 75077 Given 07/05/2010 Tetanus, Diphtheria Toxoids/Acellular Pertussis Vaccine 7 Or > 54336 Given 04/27/2008 Influenza Virus Split 3 Yrs And Above For Intramuscular Use 00322 Given 04/27/2008 Influenza Virus Split 3 Yrs And Above For Intramuscular Use Vital Signs Date Vital Result Comment 10/29/2018 12:02pm Intraocular Pressure Right Eye 14 mmHg Intraocular Pressure Left Eye 14 mmHg 10/01/2018 10:22am Intraocular Pressure Right Eye 12 mmHg Intraocular Pressure Left Eye 12 mmHg Results Description No Information Available Procedures Date Code Description Status 06/05/2019 97613 Remove Secondary Cataract, Laser (Yag) Completed 04/30/2019 82276 Eye Exam Est Intermediate Completed Medical Devices Description No Information Available Encounters Description No Information Available Assessments Date Code Description Provider 06/05/2019 H26.491 Other secondary cataract, right eye Carlitos Armijo M.D. 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 at Main Okjioj9606/05/2019 - Carlitos Armijo M.D.H26.491 Other secondary cataract, right eye Functional Status Description No Information Available Mental Status Description No Information Available Referrals Description No Information Available
--- OUTSIDE RECORDS SUMMARY | 2019-07-08 12:27 | XMS REPORT | Continuity of Care Document ---
:1945 External Reference #:[id number] Author Name Kell Ramesh M.D. (transmitted by agent of provider Ruthann Panda) Address [address] [facility], [address] [place] [id number] Care Team Providers Name Role Phone Kell Ramesh MD - Internal Care Team Information Director [employer] [phone] Medicine Harshad Hilario MD - Obstetrics & Care Team Information Director [employer] Gynecology Ivone Harrison MD - Obstetrics & Care Team Information Director [employer] Gynecology Problems Active Problems Provider Date Adenocarcinoma [...] Use Denies Drug Use Smoking Status Reviewed: 06/06/19 Patient has never smoked Exercise Type/Frequency Exercises regularly walk or stationary bike 5-6 times per week, strength exercises 3-4 times per week Allergies, Adverse Reactions, Alerts Active Allergies Reaction Severity Comments Date Sulfa rash see notes 11/30/92 07/20/2009 Bactrim Urticaria 07/20/2009 Yellow Jacket Venom Protein 07/25/2018 Trimoxazole Hives 12/10/2018 Medications Active Medications SIG Qnty Indications Ordering Provider Date Melatonin Kell Ramesh, 06/06/2019 3mg Capsules M.D. Antacid 1 -2 tab by mouth Unknown 05/05/2019 500mg Chewtabs as needed (max 8 grams a day) Magnesium Glycinate 250 mg tab by Unknown 05/05/2019 mouth daily Powder Pain Relieving once a day as 6units S33.5xxD Julisa Haile, 03/18/2019 Lidocaine Patch needed M.DRachel 4% Patches Curcumin daily Julisa Haile, 03/11/2019 M.DRachel Epinephrine Use Once as 2units Kell Ramesh, 09/29/2018 0.3mg/0.3ML Directed as M.DRachel Solution Auto-Inject needed Multivitamin Adult 1 by mouth every Unknown day Tablets Tylenol Extra 1-2 tabs by mouth Unknown Strength every 6 hours as 500mg Tablets needed Probiotic 1 by mouth every Unknown [...] Nitrofurantoin Monohyd take one tablet 10caps Paresh Branch, 04/11/2019 - Macro every 12 hours for M.DRachel 04/21/2019 100mg Capsules 5 days Cyclobenzaprine HCL take 1 tablet by 14tabs S33.5x Julisa Haile, 2018 - 5mg mouth twice a day xD M.D. 04/08/2019 Tablets Walker as needed 1units S33.5x Julisa Haile, 03/18/2019 - Misc xD M.D. 04/21/2019 Hydrocodone 1 by mouth 4 times 45tabs S22.42 Kell 03/12/2019 - Bitartrate/Acetaminoph a day as needed xA Clover Ramesh 04/08/2019 en 5-325mg Tablets Acetaminophen-Codeine 1/2 -1 tab by 30tabs Julisa Haile, 03/12/2019 - #3 mouth every 8 hours M.D. 04/08/2019 300-30mg Tablets as needed for pain [...] Code Status Date Vaccine Reaction Lot # [id number] Given 04/08/2019 Influenza Virus Vaccine, [id number] Quadrivalent ([id number]), Derived From Cell 35437 Given 03/08/2017 Influenza Virus Vaccine, [id number] Quadrivalent, Split, Preservative Free 15436 Given 02/24/2016 Influenza Virus Vaccine, no reaction noted ... [id number] Quadrivalent, Split, hh Preservative Free 46159 Given 03/30/2015 Pneumococcal Conjugate [id number] Vaccine 13 Valent For Intramuscular Use 05923 Given 03/19/2015 Influenza Virus Vaccine, [id number] Quadrivalent, Split, Preservative Free 32181 Given 03/17/2014 Flu Vaccine Split Virus [id number] Preservative Free For Indiv 3Yr Older Q2037 Given 02/28/2013 Fluvirin Im 3Yrs And Older Q2038 Given 02/12/2012 Fluzone Vaccine [id number] 28449 Given 01/26/2012 Pneumonia Vaccine [id number] 35713 Given 03/20/2011 Influenza Virus 3Yrs & Over [id number] 85714 Given 07/05/2010 Tdap - Tetanus/Diptheria/Acellular Pertussis 75405 Given 04/27/2008 Influenza Virus 3Yrs & Over 10244 Given 04/27/2008 Influenza Virus 3Yrs & Over Vital Signs Date Vital Result Comment 06/06/2019 4:07pm Height 63 inches 5'3" Weight 134.00 lb Heart Rate 80 /min BP Systolic 142 mmHg BP Diastolic 87 mmHg BP Systolic Sitting 128 mmHg recheck BP Diastolic Sitting 85 mmHg recheck O2 % BldC Oximetry 97 % BMI (Body Mass Index) 23.7 kg/m2 05/06/2019 3:19pm Height 63 inches 5'3" Weight 135.00 lb with shoes/sweater Heart Rate 80 /min BP Systolic 158 mmHg Rue (regular cuff) BP Diastolic 92 mmHg Rue (regular cuff) BP Systolic Sitting 150 mmHg Lue BP Diastolic Sitting 90 mmHg Lue BP Systolic Standing 142 mmHg Lue BP Diastolic Standing 90 mmHg Lue BMI (Body Mass Index) 23.9 kg/m2 Results Test Acquired Date Facility Test Result H/L Range Note Urinalysis Profile 05/26/2019 [facility] Urine Color Straw [address] [place] [address] [phone] Urine Appearance Clear Urine Specific [place] 1.008 Low 1.010-1.030 Urine pH 6.0 Normal 5-9 Urine Urobilinogen Negative Negative Urine Ketones Negative Negative Urine Protein Negative Negative Urine Leukocytes Negative Negative Urine Blood Negative Negative Urine Nitrite Negative Negative Urine Bilirubin Negative Negative Urine Glucose Negative Negative Ua Routine 04/21/2019 [facility] Ua Specific [place] 1.030 Ua PH 5 Ua Color brown Ua Appera cloudy Ua WBC trace Ua Protein + Ua Glucose normal Ua Ketones negative Ua Bilirubin negative Ua Urobilinogen negative Ua Nitrite + Ua Occult Blood ++ Urine Culture And 04/21/2019 [facility] Urine Culture SEE RESULT [address] [place] [address] [phone] Influenza A & B 04/21/2019 [facility] Flu AB (SEE NOTE) [address] [place] [place] [address] [phone] Influenza A Molecular NEGATIVE Negative 3 Influenza B Molecular NEGATIVE Negative Urine Culture And 04/11/2019 [facility] Urine Culture SEE RESULT [address] [place] [address] [phone] Urinalysis Profile 04/11/2019 [facility] Urine Color Tash [address] [place] [address] [phone] Urine Appearance Cloudy Urine Specific [place] 1.026 Normal 1.010-1.030 Urine pH 5.0 Normal [...] Present Abnormal Absent CBC No Diff 03/14/2019 [facility] White Blood 5.1 10^3/uL Normal 3.5-10.[address] [place] [address] [phone] Red Blood Count 3.64 10^6/uL Low 3.70-4.87 [...] fL Normal 7.4-10.4 Comp Metabolic Panel 03/14/2019 [facility] Sodium 132 mmol/L Low 135-[address] [place] [address] [phone] Potassium 4.3 mmol/L Normal 3.5-5.0 Chloride 99 [...] >60 Egfr 128.8 >60 5 Laboratory 03/14/2019 [facility] Carcinoembryonic 0.7 Normal 0.1-5.0 6 test finding [address] Antigen Cea ng/[place] [address] [phone] Order 01/08/2019 [facility] Holter Monitor <pending > Basic 01/08/2019 [facility] Sodium 136 Normal 135-[address] mmol/[place] [address] [phone] Potassium 4.4 mmol/L Normal 3.5-5.0 Chloride 100 mmol/L Low 101-111 Co2 Carbon Dioxide 31 mmol/L Normal 22-32 Anion Gap 5 mmol/L Normal 2-11 Glucose 89 mg/dL Normal 70-100 Blood Urea Nitrogen 17 mg/dL Normal 6-24 Creatinine 0.62 mg/dL Normal 0.51-0.95 BUN/Creatinine Ratio 27.4 High 8-20 Calcium 9.8 mg/dL Normal 8.6-10.3 Egfr Non- 94.6 >60 Egfr 114.5 >60 7 Laboratory test 01/08/2019 [facility] Magnesium 2.2 mg/dL Normal 1.9-2.[address] [place] [address] [phone] TSH (Thyroid Stim Horm) 2.29 mcIU/mL Normal 0.34-5.60 Hemoglobin/Hematocrit 01/08/2019 [facility] Hemoglobin 12.8 Normal 12.0-16.[address] g/[place] [address] [phone] Hematocrit 37 % Normal 35-47 Laboratory 12/17/2018 [facility] Carcinoembryonic 0.8 Normal 0.1-5.0 8 test finding [address] Antigen Cea ng/[place] [address] [phone] Comp 12/17/2018 [facility] Sodium 136 Normal 135-[address] mmol/[place] [address] [phone] Potassium 4.1 mmol/L Normal 3.5-5.0 Chloride 102 [...] Egfr 114.5 >60 9 CBC Auto 12/17/2018 [facility] White Blood 4.8 10^3/uL Normal 3.5-10.[address] [place] [address] [phone] Red Blood Count 4.01 10^6/uL Normal 3.70-4.87 [...] Red Blood Cells % 0.1 BUN/Creat/GFR 12/17/2018 [facility] Poc Blood Urea 15 mg/dL Normal 8-[address] [place] [address] [phone] Poc Creatinine 0.7 mg/dL Normal 0.6-1.3 10 Poc BUN/Creatinine Ratio 21.4 High 8-20 Egfr Non- 82.3 >60 Egfr 99.5 >60 11 1 SEE RESULT BELOW Name: CHRIST TAYLOR : [address]: Paresh Branch MD Acct: [id number] Unit: [id number] AGE: 73 Location: [facility] Re04/21/19 SEX: F Status: REG REF SPEC: [id number] [place]: 04/21/19-[address]: Paresh Branch MD REQ: [id number] RECD: 04/21/19 STATUS:COMP _ SOURCE: URINE SPDESC: ORDERED: Urine Culture COMMENTS: [id number] Urine Source: Random Procedure Result Reported Site Urine Culture Final 04/23/19- 0833 ML No growth of clinically significant organisms * ML - Main Lab . END OF REPORT DEPARTMENT OF PATHOLOGY, [address] [place] [address] Jimmy Powers M.D. Director [facility] # [id number] 2 Suboptimal collection technique may reduce sensitivity of test. Refer to the [facility] Test Catalog for collection information: [email or web address] As with all diagnostic procedures, the laboratory results obtained should be used in conjunction with other clinical information available to the physician, including confirmation by another method, as applicable. 3 Business Ethics Professor: [id number] 4 SEE RESULT BELOW Name: CHRIST TAYLOR : [address]: Iwona Claire MD Acct: [id number] Unit: [id number] AGE: 73 Location: [facility] Re04/11/19 SEX: F Status: REG REF SPEC: [id number] [place]: 04/11/[address] [facility] DR: Iwona Claire MD REQ: [id number] RECD: 04/11/19 STATUS:COMP _ SOURCE: URINE SPDESC: ORDERED: Urine Culture COMMENTS: [id number] QUERIES: Urine Source: Random Procedure Result Reported Site Urine Culture Final 04/13/19- 0846 ML Organism 1 ESCHERICHIA COLI Lagrange Count >100,000 (Many) CFU/ML 1. ESCHERICHIA COLI [...] . END OF REPORT DEPARTMENT OF PATHOLOGY, [address] [place] [address] Jimmy Powers M.D. Director [facility] # [id number] 5 Because ethnic data is not always [...] The testing method is an immunoenzymatic assay off track betting manager by OMsignal performed on Magy [place] DXI 600. Do not interpret serum CEA [...] The testing method is an immunoenzymatic assay off track betting manager by Magy [employer] performed on Magy [place] DXI 600. Do not interpret serum CEA [...] 5 Kidney failure <15 (or dialysis) 10 Business Ethics Professor: [id number] 11 Because ethnic data is not always [...] dialysis) Procedures Date Code Description Status 05/15/2019 10771 ECHO Transthoracic, Real-Time 2D With Doppler And Completed Color Flow 05/15/2019 06728 ECHO Transthoracic, Real-Time 2D With Doppler And Completed Color Flow 05/06/2019 87730 EKG Tracing & Interpretation Completed 01/08/2019 23765 ECG Monitor/Recording W/Visual Superimposition Completed Scanning 12/12/2018 [id number] Colonoscopy Completed 09/18/2017 [id number] Bone Mineral Density Test Completed 07/17/2017 [id number] Colonoscopy Completed 06/29/2017 [id number] Mammogram Completed 02/12/2017 713569700 Diabetic Foot Exam Completed 03/30/2015 47593579 Mammogram Completed 03/30/2015 481128792 Bone Mineral Density Test Completed 09/19/2013 82461912 Mammogram Completed 07/22/2012 94321889 Mammogram Completed 07/22/2012 562601975 Bone Mineral Density Test Completed 05/31/2012 69155110 Colonoscopy Completed 05/30/2011 [id number] Mammogram Completed 04/14/2010 247083105 Bone Mineral Density Test Completed 01/17/2010 50994540 Mammogram Completed 04/04/2007 73662782 Colonoscopy Completed Medical Devices Description No Information Available Encounters Type Date Location Provider Dx Diagnosis Office Visit 05/06/2019 [facility] Qutaybeh S. R00.2 Palpitations 3:40p Clover Carroll E78.5 Hyperlipidemia, unspecified R07.9 Chest pain, unspecified R06.02 Shortness of breath I10 Essential (primary) hypertension Z82.49 Family hx of ischem heart dis and oth dis of the circ sys R94.31 Abnormal electrocardiogram [ECG] [EKG] Office Visit 04/08/2019 11:50a [facility]isa S33.5xxD Sprain of Medicine Tawana Haile M.D. ligaments of Ccmob lumbar spine, subsequent encounter S33.5xxD Sprain of ligaments of lumbar spine, subsequent encounter Office Visit 03/18/2019 10:50a [facility]isa S33.5xxA Sprain of Medicine Tawana Haile M.D. ligaments of Ccmob lumbar spine, initial encounter S33.5xxA Sprain of ligaments of lumbar spine, initial encounter Office Visit 01/08/2019 12:10p [facility] Julisa Haile, R00.2 Palpitations Medicine - [facility] M.DRachel Office Visit 12/10/2018 2:20p [facility] Julisadave Haile, R00.2 [facility] Assessments Date Code Description Provider 06/06/2019 R10.9 Unspecified abdominal pain Kell Ramesh M.D. 06/06/2019 M54.5 Low back pain Kell Ramesh M.D. 05/15/2019 R00.2 Palpitations Flaca Carroll M.D. 05/15/2019 [...] lumbar spine, Julisa Haile M.D. initial encounter 03/18/2019 S33.5xxA Sprain of ligaments of lumbar spine, Julisa Haile M.D. initial encounter 03/11/2019 S22.42xA Multiple fractures [...] 10:30 am - Flaca Carroll M.D. at [place] Hns[facility]halrqg76/04/2020 10:00 am - [place] E[facility] Schedule at [facility]07/14/2019 1:40 pm - Flaca Carroll M.D. at [facility]09/15/2019 11:00 am - Kell Ramesh M.D. at [facility] Internal Medicine - [facility]06/06/2019 - Kell Ramesh M.D.R10.9 Unspecified abdominal painComments:Heartburn - OK to take famotidine as needed or regularlyTry stopping supplementsTalk to Dr. oL about the possibility of seeing [place]ena Irwin (functional medicine) about dietM54.5 Low back painNew Labs: Urinalysis Profile, Ordered: 06/06/19Urine Culture And Sensitivities, Ordered: 06/06/19Comments:Tylenol - up to 2000 mg per day Functional Status Description No Information Available Mental Status Description No Information Available Referrals Refer to Dr Reason for Referral Status Appt Date Emily Lorenzo MD Sent [address] [place], [place] [address] [phone] Luis Alfredo Molina DO, FACC Sent 05/06/[address] [place] [address] [phone] post trauma stress Created
[2019-07-08 13:25] VITALS: BP 154/94
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
== END 2019-07-08 14:20 | disposition home or self-care (01) ==
LOC: UCEAST 12:17
DX: R51 Headache (principal); K21.9 Gastro-esophageal reflux disease without esophagitis; Z91.030 Bee allergy status; Z88.5 Allergy status to narcotic agent; Z91.09 Other allergy status, other than to drugs and biological substances; Z88.2 Allergy status to sulfonamides; Z88.8 Allergy status to other drugs, medicaments and biological substances; Z85.038 Personal history of other malignant neoplasm of large intestine; Z91.048 Other nonmedicinal substance allergy status
CPT/HCPCS: 99212; G0463

== ENCOUNTER 2019-07-08 15:11 | Emergency (ER) | payer MEDICARE, OTHER ==
--- NOTE | 2019-07-08 18:22 | ED ---
Headache - HPI Summary HPI Summary: Patient complains of one brief episode of stabbing pain in left side head lasting about 1 minute early this morning. Second episode occurred while still in bed this morning, lasted for seconds, with dull headache afterwards. Symptoms have resolved, no active symptoms here in the ED. 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 Patient finished chemotherapy in June 2018, has been clear of cancer since. Denies trauma, vision change, speech change, altered mental status, unilateral weakness, fever, cough, sore throat, CP, SOB, N/V/D, abdominal pain, change in urine, change in BM. No anti-coag. 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 Onset/Duration: Sudden Onset, Started hours ago Initially Headache Was: Moderate Timing: Minutes Character: Sharp Location of Headache: Temporal, Parietal Aggravating Factor: Nothing Allevating Factors: Nothing Associated Signs And Symptoms: Negative - Allergies/Home Medications Allergies/Adverse Reactions: Allergies Allergy/AdvReac Type Severity Reaction Status Date / Time bee venom protein (honey bee) Allergy Severe anaphylaxis Verified 07/08/19 13:25 to yellow jackets morphine Allergy Severe SEVERE Verified 07/08/19 13:25 DIZZINESS adhesive Allergy Intermediate redness,ithing Verified 07/08/19 13:25 ,burning Sulfa (Sulfonamide Allergy Intermediate Hives Verified 07/08/19 13:25 Antibiotics) trimoxosol Allergy Intermediate Hives Uncoded 07/08/19 13:25 Home Medications: Home Medications Multivitamin [Once Daily] 1 tab PO DAILY 07/08/19 [History Confirmed 07/08/19] PMH/Surg Hx/FS Hx/Imm Hx Endocrine/Hematology History: Reports: Hx Thyroid Disease, Hx Anemia - as a child only AND WHILE ON CHEMOTHERAPY Denies: Hx Diabetes Cardiovascular History: Reports: Hx Peripheral Vascular Disease - vericose veins bilat, Other Cardiovascular Problems/Disorders - MILD ATHEROSCLEROSIS IN ABDOMINAL AORTA PER PATIENT//NO CAR 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 Denies: Hx Hypertension, Hx Pacemaker/ICD Respiratory History: Reports: Other Respiratory Problems/Disorders - DEVIATED SEPTUM- MOSTLY ABLE TO BREATH THROUGH MOUTH Denies: Hx Asthma, Hx Chronic Obstructive Pulmonary Disease (COPD) GI History: Reports: Hx Gastroesophageal Reflux Disease - ON MEDICATION FOR, Other GI Disorders - GAS- PRN MEDICATION FOR/ Denies: Hx Ulcer History: Reports: Other Problems/Disorders - small nosule on kidney- being monitored Denies: Hx Dialysis, Hx Renal Disease Musculoskeletal History: Reports: Hx Arthritis - osteo all over, Hx Osteoporosis - OATEOPENIA, Other Musculoskeletal History - CERVICAL SPINAL STENOSIS/RIGHT BICEP MUSCLE-WILL MOVE UNINTENTIONALLY OCC Denies: Hx Rheumatoid Arthritis, Hx Scoliosis Sensory History: Reports: Hx Cataracts - BILATERAL, Hx Contacts or Glasses - GLASSES Denies: Hx Hearing Aid Opthamlomology History: Reports: Hx Cataracts - BILATERAL, Hx Contacts or Glasses - GLASSES Neurological History: Reports: Hx Migraine - in the past only, Hx Nerve Disease - neuropathy r/t chemo Denies: Hx Headaches, Other Neuro Impairments/Disorders Psychiatric History: Reports: Hx Anxiety - GENERALIZED-NOTHING SPECIFIC-NO MEDICATION FOR Denies: Hx Panic Disorder - Cancer History Cancer Type, Location and Year: [place] - colectomy, hysterectomy, omentum removal november of 2017 [facility] Hx Chemotherapy: Yes Hx Radiation Therapy: No - Surgical History Surgery Procedure, Year, and Place: PARTIAL THYROIDECTOMY 2004;. TONSILS A CHILD. 05/12/2016 Rt HIP REPLACEMENT - SOS. colectomy, hysterectomy, omentum removal november of 2017 [facility]. 2019 CATARACT VIANNEY SURGERY -. EYE SURGERY TO REMOVE SCAR TISSUE 06/05/19 AND 06/12/19 Hx Anesthesia Reactions: No Infectious Disease History: No Infectious Disease History: Denies: Hx Clostridium Difficile, Hx Hepatitis, Hx Human Immunodeficiency Virus (HIV), Hx of Known/Suspected MRSA, Hx Shingles, Hx Tuberculosis, Hx Known/ Suspected VRE, Hx Known/Suspected VRSA, History Other Infectious Disease, Traveled Outside the [place] in Last 30 Days - Family History Known Family History: Positive: Cardiac Disease - Social History Alcohol Use: Rare Alcohol Amount: social Hx Substance Use: No Substance Use Type: Reports: None Hx Tobacco Use: No Smoking Status (MU): Never Smoked Tobacco Have You Smoked in the Last Year: No Review of Systems Constitutional: Negative Eyes: Negative ENT: Negative Cardiovascular: Negative Respiratory: Negative Gastrointestinal: Negative Genitourinary: Negative Musculoskeletal: Negative Skin: Negative Positive: Headache Psychological: Normal All Other Systems Reviewed And Are Negative: Yes Physical Exam - Summary Physical Exam Summary: Normal neuro exam. Visual ramirez intact. Triage Information Reviewed: Yes Vital Signs On Initial Exam: Initial Vitals Temp Pulse Resp BP Pulse Ox 97.8 F 105 18 193/125 98 07/08/19 15:41 07/08/19 15:41 07/08/19 15:41 07/08/19 15:41 07/08/19 15:41 Vital Signs Reviewed: Yes Appearance: Positive: Well-Appearing Skin: Positive: Warm Head/Face: Positive: Normal Head/Face Inspection Eyes: Positive: Normal Neck: Positive: Supple Respiratory/Lung Sounds: Positive: Clear to Auscultation Cardiovascular: Positive: Normal Abdomen Description: Positive: Nontender Musculoskeletal: Positive: Normal Neurological: Positive: Normal Psychiatric: Positive: Normal AVPU Assessment: Alert - [place] Coma Scale Best Eye Response: 4 - Spontaneous Best Motor Response: 6 - Obeys Commands Best Verbal Response: 5 - Oriented Coma Scale Total: 15 Procedures - Sedation Patient Received Moderate/Deep Sedation with Procedure: No Diagnostics - Vital Signs Vital Signs Temp Pulse Resp BP Pulse Ox 07/08/19 16:52 98.4 F 87 18 182/90 98 07/08/19 15:41 97.8 F 105 18 193/125 98 - Laboratory Result Diagrams: 07/08/19 18:39 07/08/19 18:39 Lab Statement: Any lab studies that have been ordered have been reviewed, and results considered in the medical decision making process. Headache Course/Dx - Course Course Of Treatment: Patient complains of one brief episode of stabbing pain in left side head lasting about 1 minute early this morning. Second episode occurred while still in bed this morning, lasted for seconds, with dull headache afterwards. Symptoms have resolved, no active symptoms here in the ED. 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 Patient finished chemotherapy in June 2018, has been clear of cancer since. Denies trauma, vision change, speech change, altered mental status, unilateral weakness, fever, cough, sore throat, CP, SOB, N/V/D, abdominal pain, change in urine, change in BM. No anti- coag. Vital signs within normal limits. Labs unremarkable. CT brain without contrast negative. - Diagnoses Provider Diagnoses: Headache Discharge ED - Sign-Out/Discharge Documenting (check all that apply): Patient Departure - Discharge Plan Condition: Stable Disposition: HOME Patient Education Materials: Acute Headache (ED) Referrals: Kell Ramesh MD [Primary Care Provider] - Additional Instructions: Follow-up with primary care. Return to the ED for any new or worsening symptoms. - Billing Disposition and Condition Condition: STABLE Disposition: Home - Attestation Statements Provider Attestation: I was available for consult. This patient was seen by the GERSON. The patient was not presented to, seen by, or examined by me. Gaurav Acuna MD
[2019-07-08 18:46] LABS: ABS Eosinophils 0.1 10^3/ul (0-0.6); ABS Lymphocytes 2.5 10^3/ul (1.0-4.8); ABS Monocytes 0.3 10^3/ul (0-0.8); ABS Neutrophils 2.3 10^3/ul (1.5-7.7); Eosinophil % 1.7 %; Hematocrit 37 % (35-47); Hemoglobin 12.7 g/dL (12.0-16.0); Lymphocyte % 47.2 %; Mean Corpuscular HGB Conc 34 g/dL (31-36); Mean Corpuscular Hemoglobin 32 pg (27-31); Mean Corpuscular Volume 92 fL (80-97); Mean Platelet Volume 8.3 fL (7.4-10.4); Platelet Count 195 10^3/uL (150-450); Red Blood Count 4.03 10^6 /uL (3.70-4.87); Red Cell Distribution Width 15 % (10-15); White Blood Count 5.3 10^3/uL (3.5-10.8)
[2019-07-08 18:52] LABS: INR 1.03 (0.82-1.09)
[2019-07-08 19:10] LABS: ALT 23 U/L (7-52); AST 21 U/L (13-39); Albumin 4.2 g/dL (3.2-5.2); Albumin/Globulin Ratio 1.7 (1-3); Alkaline Phosphatase 109 U/L (34-104); Anion Gap 6 mmol/L (2-11); Blood Urea Nitrogen 15 mg/dL (6-24); C Reactive Protein < 1.00 mg/L (<8.01); CO2 Carbon Dioxide 28 mmol/L (22-32); Calcium 9.5 mg/dL (8.6-10.3); Chloride 103 mmol/L (101-111); EGFR African American 118.9 (>60); EGFR Non-African American 98.3 (>60); Globulin 2.5 g/dL (2-4); Glucose 101 mg/dL (70-100); Potassium 3.6 mmol/L (3.5-5.0); Sodium 137 mmol/L (135-145); Total Protein 6.7 g/dL (6.4-8.9)
[2019-07-08 21:15] VITALS: BP 137/70
== END 2019-07-08 21:16 | disposition home or self-care (01) ==
LOC: ED 15:11
DX: R51 Headache (principal); K21.9 Gastro-esophageal reflux disease without esophagitis; Z85.038 Personal history of other malignant neoplasm of large intestine; Z91.030 Bee allergy status; Z88.5 Allergy status to narcotic agent; Z88.2 Allergy status to sulfonamides; Z88.8 Allergy status to other drugs, medicaments and biological substances; Z91.048 Other nonmedicinal substance allergy status
CPT/HCPCS: 36415; 70450; 80053; 85025; 85610; 86140; 99283

== ENCOUNTER 2020-12-09 17:16 | Inpatient (IN) ==
[2020-12-09 18:35] LABS: ABS Lymphocytes 1.5 10^3/ul (1.0-4.8); ABS Monocytes 0.4 10^3/ul (0-0.8); ABS Neutrophils 6.8 10^3/ul (1.5-7.7); Eosinophil % 0.5 %; Hematocrit 36 % (35-47); Hemoglobin 11.8 g/dL (12.0-16.0); Lymphocyte % 17.1 %; Mean Corpuscular HGB Conc 33 g/dL (31-36); Mean Corpuscular Hemoglobin 30 pg (27-31); Mean Corpuscular Volume 91 fL (80-97); Platelet Count 310 10^3/uL (150-450); Red Blood Count 3.89 10^6 /uL (3.70-4.87); Red Cell Distribution Width 14 % (10-15); White Blood Count 8.8 10^3/uL (3.5-10.8)
[2020-12-09 18:46] LABS: Albumin/Globulin Ratio 1.5 (1-3); EGFR African American 92.8 (>60); EGFR Non-African American 76.7 (>60); Globulin 2.7 g/dL (2-4); Potassium 4.1 mmol/L (3.5-5.0); Total Bilirubin 0.7 mg/dL (0.2-1.0); Total Protein 6.7 g/dL (6.4-8.9)
[2020-12-09] MEDS ORDERED: Ondansetron 4 mg VIAL 2 MG/ML 2 ml VIAL IV ONE (18:46)
[2020-12-09] MEDS ORDERED: Lactated Ringers 1000 ml BAG 1,000 ML IV ONE (18:46)
[2020-12-09] MEDS ORDERED: Famotidine IV 10 MG/ML 2 ml VIAL (20 mg) IV SLOW PU ONE (18:46)
[2020-12-09] MEDS ORDERED: fentaNYL 100 mcg/2 ml 50 MCG/ML VIAL IV SLOW PU ONE (19:12)
[2020-12-09] MEDS ORDERED: Acetaminophen IV 1 GM/100ML VI 100 ML IVPB ONE (20:00)
[2020-12-09] MEDS ORDERED: Iohexol 300 (CONTRAST) 10 ML SDV IV ONE (20:05)
[2020-12-09] MEDS ORDERED: Pantoprazole VIAL 40 MG VIAL IV SCH (23:45)
[2020-12-09 23:47] LABS: Urine Appearance Clear; Urine Bilirubin Negative (Negative); Urine Blood Negative (Negative); Urine Color Yellow; Urine Glucose Negative (Negative); Urine Ketones Trace (Negative); Urine Nitrite Negative (Negative); Urine Protein Negative (Negative); Urine Specific Gravity 1.044 (1.002-1.030); Urine Urobilinogen Negative (Negative)
[2020-12-10] MEDS: NS 0.9% 1000 ml BAG 1,000 ML IV SCH ×2 (02:38→19:14)
[2020-12-10] MEDS ORDERED: fentaNYL 100 mcg/2 ml 50 MCG/ML VIAL IV SLOW PU PRN (03:01)
[2020-12-10] MEDS ORDERED: Acetaminophen IV 1 GM/100ML 100 ML IV ONE ×2 (03:15→09:00)
[2020-12-10 05:55] LABS: ABS Lymphocytes 1.1 10^3/ul (1.0-4.8); ABS Monocytes 0.4 10^3/ul (0-0.8); ABS Neutrophils 4.3 10^3/ul (1.5-7.7); Eosinophil % 0.5 %; Hematocrit 36 % (35-47); Lymphocyte % 19.1 %; Mean Corpuscular HGB Conc 34 g/dL (31-36); Mean Corpuscular Hemoglobin 31 pg (27-31); Mean Corpuscular Volume 91 fL (80-97); Nucleated Red Blood Cells % 0.1; Platelet Count 308 10^3/uL (150-450); Red Blood Count 3.94 10^6 /uL (3.70-4.87); Red Cell Distribution Width 14 % (10-15); White Blood Count 5.8 10^3/uL (3.5-10.8)
[2020-12-10 06:10] LABS: Calcium 9.3 mg/dL (8.6-10.3); EGFR African American 104.1 (>60); Potassium 4.1 mmol/L (3.5-5.0)
[2020-12-10] MEDS ORDERED: Acetaminophen IV 1 GM/100ML VI 100 ML IVPB ONE (09:00)
[2020-12-10] MEDS: Heparin 5000 UNITS/ML 1 mL VIAL SUBCUT SCH ×2 (09:43→20:55)
[2020-12-10] MEDS: Pantoprazole VIAL 40 MG VIAL IV SCH ×2 (09:43→20:56)
[2020-12-11] MEDS ORDERED: Acetaminophen IV 1 GM/100ML 100 ML IV ONE (01:00)
[2020-12-11] MEDS: NS 0.9% 1000 ml BAG 1,000 ML IV SCH (05:51)
[2020-12-11 06:17] LABS: Calcium 8.5 mg/dL (8.6-10.3); EGFR African American 125.5 (>60); EGFR Non-African American 103.7 (>60)
[2020-12-11] MEDS: Pantoprazole VIAL 40 MG VIAL IV SCH ×2 (10:08→20:18)
[2020-12-11] MEDS: Heparin 5000 UNITS/ML 1 mL VIAL SUBCUT SCH ×2 (10:09→20:17)
[2020-12-11] MEDS ORDERED: NS 0.9% 1000 ml BAG 1,000 ML IV SCH (15:04)
[2020-12-11] MEDS ORDERED: D10W 1000 ML BAG 1000 ML IV SCH (16:00)
[2020-12-11] MEDS ORDERED: Acetaminophen IV 1 GM/100ML 100 ML IV SCH (16:00)
[2020-12-11] MEDS ORDERED: D5NS 0.9% 1000 ml BAG 1,000 ML IV SCH (19:00)
[2020-12-11] MEDS: Acetaminophen IV 1 GM/100ML 100 ML IV SCH (20:18)
[2020-12-12 06:33] LABS: Albumin 3.2 g/dL (3.2-5.2); Albumin/Globulin Ratio 1.5 (1-3); Calcium 8.3 mg/dL (8.6-10.3); EGFR African American 160.7 (>60); EGFR Non-African American 132.8 (>60); Globulin 2.1 g/dL (2-4); Magnesium 1.7 mg/dL (1.9-2.7); Potassium 3.4 mmol/L (3.5-5.0); Total Bilirubin 0.6 mg/dL (0.2-1.0); Total Protein 5.3 g/dL (6.4-8.9)
[2020-12-12] MEDS: Acetaminophen IV 1 GM/100ML 100 ML IV SCH (09:03)
[2020-12-12] MEDS: Pantoprazole VIAL 40 MG VIAL IV SCH (09:03)
[2020-12-12] MEDS: Heparin 5000 UNITS/ML 1 mL VIAL SUBCUT SCH ×2 (09:03→22:18)
[2020-12-12] MEDS ORDERED: KCL 20 MEQ/100 ML IVPREMIX 20 MEQ/100 ML BAG IV ONE (11:47)
[2020-12-12] MEDS ORDERED: Magnesium Sulfate 2 gm BAG 2 GM/50 ML BAG IVPB ONE (11:47)
[2020-12-12] MEDS ORDERED: TPN 24 HR with Dextrose 50% Water 500 ML, Amino Acid Infusion 10% 850 ML, Sterile Water... CENTR SCH (12:00)
[2020-12-12] MEDS ORDERED: Iohexol 300 (CONTRAST) 10 ML SDV IV ONE (14:31)
[2020-12-12] MEDS ORDERED: Acetaminophen IV 1 GM/100ML 100 ML IV SCH (16:15)
[2020-12-12] MEDS: TPN 24 HR with Dextrose 50% Water 500 ML, Amino Acid Infusion 10% 850 ML, Sterile Water... CENTR SCH (18:20)
[2020-12-12] MEDS ORDERED: Pantoprazole VIAL 40 MG VIAL IV ONE (23:22)
[2020-12-13 06:03] LABS: ABS Eosinophils 0.1 10^3/ul (0-0.6); ABS Lymphocytes 1.1 10^3/ul (1.0-4.8); ABS Monocytes 0.3 10^3/ul (0-0.8); ABS Neutrophils 2.4 10^3/ul (1.5-7.7); Eosinophil % 1.9 %; Hematocrit 30 % (35-47); Hemoglobin 10.2 g/dL (12.0-16.0); Lymphocyte % 27.7 %; Mean Corpuscular HGB Conc 34 g/dL (31-36); Mean Corpuscular Hemoglobin 31 pg (27-31); Mean Corpuscular Volume 91 fL (80-97); Mean Platelet Volume 7.7 fL (7.4-10.4); Platelet Count 245 10^3/uL (150-450); Red Cell Distribution Width 14 % (10-15); White Blood Count 3.9 10^3/uL (3.5-10.8)
[2020-12-13 06:19] LABS: Calcium 8.5 mg/dL (8.6-10.3); EGFR African American 188.8 (>60); Magnesium 2.1 mg/dL (1.9-2.7); Potassium 3.6 mmol/L (3.5-5.0)
[2020-12-13] MEDS: Pantoprazole VIAL 40 MG VIAL IV SCH (09:35)
[2020-12-13] MEDS: Cholecalciferol (VIT D3) 1,000 unit TAB PO SCH (09:35)
[2020-12-13] MEDS: Heparin 5000 UNITS/ML 1 mL VIAL SUBCUT SCH ×2 (12:19→19:35)
[2020-12-13 15:41] LABS: Albumin 3.2 g/dL (3.2-5.2)
[2020-12-13 15:46] LABS: Body Fluid Source Peritonial Fluid
[2020-12-13 16:19] LABS: % Iron Saturation 8 % (15-55); Iron 30 ug/dL (50-212); Total Iron Binding Capacity 353 mcg/dL (250-450); Transferrin 252 mg/dL (203-362); Unsaturated Iron Binding < 338 ug/dL
[2020-12-13 16:29] LABS: Ferritin 60.2 ng/mL (11-307)
[2020-12-13] MEDS: TPN 24 HR with Dextrose 50% Water 500 ML, Amino Acid Infusion 10% 850 ML, Sterile Water... CENTR SCH (16:49)
[2020-12-13 21:41] LABS: Body Fluid Mono 10 %; Body Fluid Other Cells 12; Body Fluid Total Cells Counted 200
[2020-12-13 21:42] LABS: Body Fluid Appearance Clear; Body Fluid Color Yellow; Body Fluid WBC 832 /mcL
[2020-12-14 05:37] LABS: ABS Eosinophils 0.1 10^3/ul (0-0.6); ABS Lymphocytes 1.3 10^3/ul (1.0-4.8); ABS Monocytes 0.3 10^3/ul (0-0.8); ABS Neutrophils 2.4 10^3/ul (1.5-7.7); Eosinophil % 2.1 %; Hematocrit 29 % (35-47); Lymphocyte % 31.2 %; Mean Corpuscular HGB Conc 34 g/dL (31-36); Mean Corpuscular Hemoglobin 31 pg (27-31); Mean Corpuscular Volume 91 fL (80-97); Mean Platelet Volume 7.7 fL (7.4-10.4); Platelet Count 221 10^3/uL (150-450); Red Blood Count 3.21 10^6 /uL (3.70-4.87); Red Cell Distribution Width 15 % (10-15); White Blood Count 4.1 10^3/uL (3.5-10.8)
[2020-12-14 05:54] LABS: Albumin 3.3 g/dL (3.2-5.2); Albumin/Globulin Ratio 1.6 (1-3); Calcium 8.7 mg/dL (8.6-10.3); EGFR African American 178.5 (>60); EGFR Non-African American 147.5 (>60); Globulin 2.1 g/dL (2-4); Phosphorus 3.1 mg/dL (2.5-5.0); Potassium 3.9 mmol/L (3.5-5.0); Total Bilirubin 0.3 mg/dL (0.2-1.0); Total Protein 5.4 g/dL (6.4-8.9)
[2020-12-14] MEDS: Heparin 5000 UNITS/ML 1 mL VIAL SUBCUT SCH ×2 (09:17→21:57)
[2020-12-14] MEDS: Pantoprazole VIAL 40 MG VIAL IV SCH (09:17)
[2020-12-14] MEDS: Cholecalciferol (VIT D3) 1,000 unit TAB PO SCH (09:17)
[2020-12-14 10:05] LABS: Carcinoembryonic Antigen 1.8 ng/mL (0.1-5.0)
[2020-12-14] MEDS: TPN 24 HR with Dextrose 50% Water 500 ML, Amino Acid Infusion 10% 850 ML, Sterile Water... CENTR SCH (17:29)
[2020-12-14] MEDS: CMC:Lactase Enzyme (NF) 3,000 UNIT TAB PO SCH (17:29)
[2020-12-14 19:18] LABS: Vitamin D Total 25(OH) 32.6 ng/mL (20-50)
[2020-12-15] MEDS: CALCIUM CARBONATE 500 MG PO PRN ×2 (07:07→12:01)
[2020-12-15] MEDS ORDERED: Calcium Carb (TUMS) 500 mg CHEW TAB ONE ×2 (07:09→11:57)
[2020-12-15] MEDS: CMC:Lactase Enzyme (NF) 3,000 UNIT TAB PO SCH ×3 (08:49→17:52)
[2020-12-15] MEDS: Cholecalciferol (VIT D3) 1,000 unit TAB PO SCH (08:49)
[2020-12-15] MEDS: Heparin 5000 UNITS/ML 1 mL VIAL SUBCUT SCH (08:49)
[2020-12-15] MEDS: Enoxaparin 40 MG/0.4 ML SYR SUBCUT SCH (14:47)
[2020-12-15 17:16] LABS: BF PH 8.3
[2020-12-15] MEDS: TPN 24 HR with Dextrose 50% Water 500 ML, Amino Acid Infusion 10% 850 ML, Sterile Water... CENTR SCH (17:52)
[2020-12-16] MEDS: Cholecalciferol (VIT D3) 1,000 unit TAB PO SCH (08:53)
[2020-12-16] MEDS: CMC:Lactase Enzyme (NF) 3,000 UNIT TAB PO SCH ×3 (09:37→18:20)
[2020-12-16 12:04] LABS: Albumin, BF 2.4 g/dL
[2020-12-16] MEDS: Enoxaparin 40 MG/0.4 ML SYR SUBCUT SCH (14:44)
[2020-12-16] MEDS: TPN 24 HR with Dextrose 50% Water 500 ML, Amino Acid Infusion 10% 850 ML, Sterile Water... CENTR SCH (17:20)
[2020-12-17 07:06] LABS: Albumin 3.4 g/dL (3.2-5.2); Albumin/Globulin Ratio 1.6 (1-3); Calcium 9.1 mg/dL (8.6-10.3); EGFR African American 169.1 (>60); EGFR Non-African American 139.8 (>60); Globulin 2.1 g/dL (2-4); Phosphorus 3.6 mg/dL (2.5-5.0); Potassium 4.4 mmol/L (3.5-5.0); Total Bilirubin 0.3 mg/dL (0.2-1.0); Total Protein 5.5 g/dL (6.4-8.9)
[2020-12-17] MEDS: Cholecalciferol (VIT D3) 1,000 unit TAB PO SCH (08:58)
[2020-12-17] MEDS: CMC:Lactase Enzyme (NF) 3,000 UNIT TAB PO SCH ×3 (09:00→17:38)
[2020-12-17 14:33] LABS: Total Protein, BF 3.3 g/dL
[2020-12-17] MEDS: Enoxaparin 40 MG/0.4 ML SYR SUBCUT SCH (14:44)
[2020-12-17] MEDS: TPN 24 HR with Dextrose 50% Water 500 ML, Amino Acid Infusion 10% 850 ML, Sterile Water... CENTR SCH (17:39)
[2020-12-18] MEDS: CALCIUM CARBONATE 500 MG PO PRN ×2 (04:35→18:53)
[2020-12-18] MEDS: CMC:Lactase Enzyme (NF) 3,000 UNIT TAB PO SCH ×3 (08:31→17:54)
[2020-12-18] MEDS: Cholecalciferol (VIT D3) 1,000 unit TAB PO SCH (09:12)
[2020-12-18] MEDS: Enoxaparin 40 MG/0.4 ML SYR SUBCUT SCH (10:55)
[2020-12-18] MEDS: TPN 24 HR with Dextrose 50% Water 500 ML, Amino Acid Infusion 10% 850 ML, Sterile Water... CENTR SCH (17:27)
[2020-12-19] MEDS: Cholecalciferol (VIT D3) 1,000 unit TAB PO SCH (09:00)
[2020-12-19] MEDS: CMC:Lactase Enzyme (NF) 3,000 UNIT TAB PO SCH ×3 (09:00→20:13)
[2020-12-19] MEDS: CALCIUM CARBONATE 500 MG PO PRN ×3 (09:03→20:15)
[2020-12-19 10:28] LABS: INR 1.11 (0.86-1.15)
[2020-12-19 11:51] LABS: ABS Eosinophils 0.1 10^3/ul (0-0.6); ABS Lymphocytes 1.2 10^3/ul (1.0-4.8); ABS Monocytes 0.4 10^3/ul (0-0.8); ABS Neutrophils 2.7 10^3/ul (1.5-7.7); Eosinophil % 2.6 %; Hematocrit 30 % (35-47); Hemoglobin 9.9 g/dL (12.0-16.0); Lymphocyte % 27.3 %; Mean Corpuscular HGB Conc 33 g/dL (31-36); Mean Corpuscular Hemoglobin 30 pg (27-31); Mean Corpuscular Volume 92 fL (80-97); Mean Platelet Volume 7.7 fL (7.4-10.4); Platelet Count 264 10^3/uL (150-450); Red Blood Count 3.25 10^6 /uL (3.70-4.87); Red Cell Distribution Width 14 % (10-15); White Blood Count 4.5 10^3/uL (3.5-10.8)
[2020-12-19 12:03] LABS: Albumin 3.5 g/dL (3.2-5.2); Albumin/Globulin Ratio 1.5 (1-3); Calcium 9.3 mg/dL (8.6-10.3); EGFR African American 149.4 (>60); EGFR Non-African American 123.5 (>60); Globulin 2.4 g/dL (2-4); Potassium 4.1 mmol/L (3.5-5.0); Total Bilirubin 0.3 mg/dL (0.2-1.0); Total Protein 5.9 g/dL (6.4-8.9)
[2020-12-19] MEDS: Enoxaparin 40 MG/0.4 ML SYR SUBCUT SCH (12:11)
[2020-12-19] MEDS ORDERED: KCL 20 MEQ/100 ML IVPREMIX 20 MEQ/100 ML BAG IV SCH (15:00)
[2020-12-19] MEDS: TPN 24 HR with Dextrose 50% Water 500 ML, Amino Acid Infusion 10% 850 ML, Sterile Water... CENTR SCH (17:13)
[2020-12-20 06:43] LABS: Hematocrit 30 % (35-47); Hemoglobin 10.3 g/dL (12.0-16.0); Mean Corpuscular HGB Conc 34 g/dL (31-36); Mean Corpuscular Hemoglobin 31 pg (27-31); Mean Corpuscular Volume 92 fL (80-97); Platelet Count 292 10^3/uL (150-450); Red Blood Count 3.31 10^6 /uL (3.70-4.87); Red Cell Distribution Width 15 % (10-15); White Blood Count 4.3 10^3/uL (3.5-10.8)
[2020-12-20 06:59] LABS: Calcium 9.2 mg/dL (8.6-10.3); EGFR African American 136.4 (>60); EGFR Non-African American 112.8 (>60)
[2020-12-20] MEDS: Cholecalciferol (VIT D3) 1,000 unit TAB PO SCH (08:38)
[2020-12-20] MEDS: CMC:Lactase Enzyme (NF) 3,000 UNIT TAB PO SCH ×3 (08:38→17:36)
[2020-12-20] MEDS ORDERED: Famotidine IV 10 MG/ML 2 ml VIAL (20 mg) IV SLOW PU ONE (09:01)
[2020-12-20 09:43] LABS: Magnesium 1.9 mg/dL (1.9-2.7); Phosphorus 3.8 mg/dL (2.5-5.0)
[2020-12-20] MEDS ORDERED: Buffered Lidocaine 1% SYRIN 1 ml INTRADERM ONE ×2 (11:09→12:21)
[2020-12-20] MEDS ORDERED: Sodium Citrate/Citric Acid LIQ 15 ML UDC PO ONE (12:21)
[2020-12-20] MEDS ORDERED: Ondansetron 4 mg VIAL 2 MG/ML 2 ml VIAL IV PRN (12:23)
[2020-12-20] MEDS ORDERED: HYDROmorphone 1 MG/1 ML SYRINGE IV PRN ×2 (12:23→17:27)
[2020-12-20] MEDS ORDERED: Naloxone 0.4 mg VIAL 0.4 mg/ml 1 ml VIAL IV PRN (12:23)
[2020-12-20] MEDS ORDERED: fentaNYL 100 mcg/2 ml 50 MCG/ML VIAL IV PRN (12:23)
[2020-12-20] MEDS ORDERED: Sodium Citrate/Citric Acid LIQ 15 ML UDC ONE (12:40)
[2020-12-20] MEDS ORDERED: Midazolam 2 mg/2 ml VIAL 1 mg/ml 2 ml VIAL (2 mg) ONE (12:57)
[2020-12-20] MEDS ORDERED: Rocuronium 50 mg VIAL 10 mg/ml 5 ml VIAL (50 mg) ONE ×2 (12:57→14:48)
[2020-12-20] MEDS ORDERED: fentaNYL 250 mcg/5 ml 50 MCG/ML 5 ml VIAL (250 MCG) ONE (12:57)
[2020-12-20] MEDS ORDERED: Propofol 10 MG/ML 20 ML BTL ONE (12:58)
[2020-12-20] MEDS ORDERED: Bupivacaine 0.25% EPI 200,000 30 ML SDV ONE (12:59)
[2020-12-20] MEDS ORDERED: Lactated Ringers 1000 ml BAG 1,000 ML IV SCH (13:00)
[2020-12-20] MEDS ORDERED: ceFOXitin 2 GM IVPREMIX 2 GM/50 ML BAG ONE (13:25)
[2020-12-20] MEDS ORDERED: Phenylephrine 40 mcg/mL 10mL (400mcg) SYRINGE ONE (14:05)
[2020-12-20] MEDS ORDERED: Dexamethasone IV 4 MG/ML VIAL 1 ml VIAL ONE (14:06)
[2020-12-20] MEDS ORDERED: Ondansetron 4 mg VIAL 2 MG/ML 2 ml VIAL ONE ×2 (15:06→15:43)
[2020-12-20] MEDS ORDERED: Acetaminophen IV 1 GM/100ML 100 ML IV ONE (15:14)
[2020-12-20] MEDS ORDERED: HYDROmorphone 1 MG/1 ML SYRINGE ONE (15:43)
[2020-12-20] MEDS ORDERED: Metoclopramide 5 MG/ML VIAL (10 mg) ONE (15:59)
[2020-12-20] MEDS ORDERED: fentaNYL 100 mcg/2 ml 50 MCG/ML VIAL ONE (16:24)
[2020-12-20] MEDS ORDERED: Labetalol IV 5 MG/ML 20 ml VIAL ONE (16:43)
[2020-12-20] MEDS ORDERED: Acetaminophen IV 1 GM/100ML 100 ML IV PRN (17:28)
[2020-12-20] MEDS: TPN 24 HR with Dextrose 50% Water 500 ML, Amino Acid Infusion 10% 850 ML, Sterile Water... CENTR SCH (17:31)
[2020-12-21 06:13] LABS: ABS Lymphocytes 1.2 10^3/ul (1.0-4.8); ABS Monocytes 0.6 10^3/ul (0-0.8); ABS Neutrophils 3.7 10^3/ul (1.5-7.7); Eosinophil % 0.2 %; Hematocrit 28 % (35-47); Hemoglobin 9.5 g/dL (12.0-16.0); Lymphocyte % 21.3 %; Mean Corpuscular HGB Conc 34 g/dL (31-36); Mean Corpuscular Hemoglobin 31 pg (27-31); Mean Corpuscular Volume 92 fL (80-97); Platelet Count 245 10^3/uL (150-450); Red Cell Distribution Width 15 % (10-15); White Blood Count 5.4 10^3/uL (3.5-10.8)
[2020-12-21 06:29] LABS: Albumin 3.3 g/dL (3.2-5.2); Magnesium 1.9 mg/dL (1.9-2.7); Potassium 4.3 mmol/L (3.5-5.0); Total Bilirubin 0.4 mg/dL (0.2-1.0)
[2020-12-21 06:35] LABS: Albumin/Globulin Ratio 1.5 (1-3); EGFR African American 173.7 (>60); EGFR Non-African American 143.5 (>60); Globulin 2.2 g/dL (2-4); Phosphorus 3.3 mg/dL (2.5-5.0); Total Protein 5.5 g/dL (6.4-8.9)
[2020-12-21] MEDS: CMC:Lactase Enzyme (NF) 3,000 UNIT TAB PO SCH ×3 (08:18→18:48)
[2020-12-21] MEDS: Cholecalciferol (VIT D3) 1,000 unit TAB PO SCH (08:19)
[2020-12-21] MEDS: Enoxaparin 40 MG/0.4 ML SYR SUBCUT SCH (13:06)
[2020-12-21] MEDS: TPN 24 HR with Dextrose 50% Water 500 ML, Amino Acid Infusion 10% 850 ML, Sterile Water... CENTR SCH (16:36)
[2020-12-21] MEDS: Magnesium Hydroxide LIQ 30 ML UDC PO SCH (16:36)
[2020-12-22 06:14] LABS: ABS Eosinophils 0.1 10^3/ul (0-0.6); ABS Lymphocytes 1.2 10^3/ul (1.0-4.8); ABS Monocytes 0.5 10^3/ul (0-0.8); ABS Neutrophils 3.1 10^3/ul (1.5-7.7); Eosinophil % 1.3 %; Hematocrit 27 % (35-47); Hemoglobin 9.2 g/dL (12.0-16.0); Lymphocyte % 24.3 %; Mean Corpuscular HGB Conc 34 g/dL (31-36); Mean Corpuscular Hemoglobin 31 pg (27-31); Mean Corpuscular Volume 92 fL (80-97); Mean Platelet Volume 8.1 fL (7.4-10.4); Platelet Count 240 10^3/uL (150-450); Red Blood Count 2.95 10^6 /uL (3.70-4.87); Red Cell Distribution Width 15 % (10-15); White Blood Count 4.9 10^3/uL (3.5-10.8)
[2020-12-22 06:32] LABS: Calcium 8.6 mg/dL (8.6-10.3); EGFR Non-African American 126.4 (>60); Phosphorus 3.5 mg/dL (2.5-5.0); Potassium 4.7 mmol/L (3.5-5.0)
[2020-12-22] MEDS: CMC:Lactase Enzyme (NF) 3,000 UNIT TAB PO SCH ×3 (08:46→17:37)
[2020-12-22] MEDS: Cholecalciferol (VIT D3) 1,000 unit TAB PO SCH (10:00)
[2020-12-22] MEDS: Magnesium Hydroxide LIQ 30 ML UDC PO SCH (10:01)
[2020-12-22] MEDS ORDERED: Docusate LIQ 100 MG/10 ML UDC PO PRN (10:38)
[2020-12-22] MEDS ORDERED: Senna TAB 8.6 mg TAB PO PRN (10:39)
[2020-12-22] MEDS: Enoxaparin 40 MG/0.4 ML SYR SUBCUT SCH (13:04)
[2020-12-22] MEDS: TPN 24 HR with Dextrose 50% Water 500 ML, Amino Acid Infusion 10% 850 ML, Sterile Water... CENTR SCH (17:28)
[2020-12-23 05:51] LABS: Calcium 8.9 mg/dL (8.6-10.3); EGFR African American 156.7 (>60); EGFR Non-African American 129.5 (>60); Potassium 4.5 mmol/L (3.5-5.0)
[2020-12-23] MEDS: CMC:Lactase Enzyme (NF) 3,000 UNIT TAB PO SCH ×3 (09:19→18:04)
[2020-12-23] MEDS: Magnesium Hydroxide LIQ 30 ML UDC PO SCH (09:20)
[2020-12-23] MEDS: Cholecalciferol (VIT D3) 1,000 unit TAB PO SCH (10:32)
[2020-12-23] MEDS: Enoxaparin 40 MG/0.4 ML SYR SUBCUT SCH (13:48)
[2020-12-24] MEDS: CMC:Lactase Enzyme (NF) 3,000 UNIT TAB PO SCH ×3 (07:43→15:07)
[2020-12-24] MEDS: Magnesium Hydroxide LIQ 30 ML UDC PO SCH (07:46)
[2020-12-24] MEDS: Cholecalciferol (VIT D3) 1,000 unit TAB PO SCH (08:54)
[2020-12-24] MEDS: Enoxaparin 40 MG/0.4 ML SYR SUBCUT SCH (12:33)
[2020-12-24 15:43] VITALS: BP 138/87
== END 2020-12-24 18:41 | disposition home or self-care (01) | DRG 356 ==
LOC: ED 17:16 → SSU 23:02
PROVIDERS: ADMIT Internal Medicine; ATTEND Internal Medicine

== ENCOUNTER 2021-01-15 10:44 | Inpatient (IN) ==
[2021-01-15] MEDS ORDERED: Lactated Ringers 1000 ml BAG 1,000 ML IV ONE (11:19)
[2021-01-15] MEDS ORDERED: Ondansetron 4 mg VIAL 2 MG/ML 2 ml VIAL IV ONE (11:19)
[2021-01-15] MEDS ORDERED: Acetaminophen IV 1 GM/100ML 100 ML IV ONE (11:20)
[2021-01-15 11:49] LABS: ABS Lymphocytes 0.9 10^3/ul (1.0-4.8); ABS Monocytes 0.3 10^3/ul (0-0.8); ABS Neutrophils 2.2 10^3/ul (1.5-7.7); Eosinophil % 0.2 %; Hematocrit 34 % (35-47); Hemoglobin 11.3 g/dL (12.0-16.0); Mean Corpuscular HGB Conc 33 g/dL (31-36); Mean Corpuscular Hemoglobin 30 pg (27-31); Mean Corpuscular Volume 91 fL (80-97); Mean Platelet Volume 7.2 fL (7.4-10.4); Platelet Count 296 10^3/uL (150-450); Red Blood Count 3.75 10^6 /uL (3.70-4.87); Red Cell Distribution Width 14 % (10-15); White Blood Count 3.5 10^3/uL (3.5-10.8)
[2021-01-15 12:08] LABS: ALT 22 U/L (7-52); AST 27 U/L (13-39); Albumin/Globulin Ratio 1.4 (1-3); Alkaline Phosphatase 139 U/L (35-149); Anion Gap 11 mmol/L (2-11); Blood Urea Nitrogen 26 mg/dL (6-24); CO2 Carbon Dioxide 26 mmol/L (22-32); Calcium 9.5 mg/dL (8.6-10.3); Chloride 98 mmol/L (101-111); Creatine Kinase 31 U/L (10-223); EGFR African American 100.6 (>60); EGFR Non-African American 83.2 (>60); Globulin 2.9 g/dL (2-4); Glucose 114 mg/dL (70-100); Magnesium 1.9 mg/dL (1.9-2.7); Potassium 3.6 mmol/L (3.5-5.0); Sodium 135 mmol/L (135-145); Total Protein 6.9 g/dL (6.4-8.9)
[2021-01-15] MEDS ORDERED: Iohexol 350 (CONTRAST) 500 ML MDV IV ONE (12:35)
[2021-01-15] MEDS ORDERED: Enoxaparin 100 MG/ML SYR SUBCUT ONE (14:25)
[2021-01-15] MEDS ORDERED: Ondansetron 4 mg VIAL 2 MG/ML 2 ml VIAL IV PRN (14:31)
[2021-01-15] MEDS ORDERED: HYDROmorphone 0.5 MG/0.5 ML SYRINGE IV SLOW PU PRN (14:36)
[2021-01-15 14:45] LABS: Urine Appearance Clear; Urine Bilirubin Negative (Negative); Urine Blood Negative (Negative); Urine Color Yellow; Urine Glucose Negative (Negative); Urine Ketones 1+ (Negative); Urine Nitrite Negative (Negative); Urine Protein 1+(30 mg/dL) (Negative); Urine Urobilinogen Negative (Negative)
[2021-01-15 14:47] LABS: Urine Bacteria Absent (Absent); Urine Red Blood Cell 3+(>10/hpf) (Absent); Urine Squamous Epithelial Cell Present (Absent); Urine White Blood Cell Trace(0-5/hpf) (Absent)
[2021-01-15] MEDS ORDERED: Enoxaparin 60 MG/0.6 ML SYR SUBCUT SCH (15:00)
[2021-01-15 15:08] LABS: Urine Specific Gravity 1.015 (1.002-1.030)
[2021-01-15] MEDS: NS 0.9% 1000 ml BAG 1,000 ML IV SCH (16:16)
[2021-01-15 17:18] LABS: Carcinoembryonic Antigen 3.4 ng/mL (0.1-5.0)
[2021-01-15] MEDS: Famotidine IV 10 MG/ML 2 ml VIAL (20 mg) IV SLOW PU SCH (21:40)
[2021-01-16] MEDS: Enoxaparin 60 MG/0.6 ML SYR SUBCUT SCH ×2 (03:57→15:21)
[2021-01-16] MEDS: NS 0.9% 1000 ml BAG 1,000 ML IV SCH (03:58)
[2021-01-16 07:11] LABS: ABS Lymphocytes 1.2 10^3/ul (1.0-4.8); ABS Monocytes 0.3 10^3/ul (0-0.8); ABS Neutrophils 2.2 10^3/ul (1.5-7.7); Eosinophil % 0.4 %; Hematocrit 34 % (35-47); Hemoglobin 11.3 g/dL (12.0-16.0); Lymphocyte % 33.2 %; Mean Corpuscular HGB Conc 34 g/dL (31-36); Mean Corpuscular Hemoglobin 31 pg (27-31); Mean Corpuscular Volume 91 fL (80-97); Mean Platelet Volume 7.1 fL (7.4-10.4); Platelet Count 270 10^3/uL (150-450); Red Cell Distribution Width 14 % (10-15); White Blood Count 3.7 10^3/uL (3.5-10.8)
[2021-01-16 07:28] LABS: Albumin 3.8 g/dL (3.2-5.2); Albumin/Globulin Ratio 1.4 (1-3); Calcium 9.2 mg/dL (8.6-10.3); EGFR African American 113.9 (>60); EGFR Non-African American 94.1 (>60); Globulin 2.7 g/dL (2-4); Magnesium 1.9 mg/dL (1.9-2.7); Phosphorus 3.6 mg/dL (2.5-5.0); Potassium 3.8 mmol/L (3.5-5.0); Total Bilirubin 1.1 mg/dL (0.2-1.0); Total Protein 6.5 g/dL (6.4-8.9)
[2021-01-16] MEDS: Famotidine IV 10 MG/ML 2 ml VIAL (20 mg) IV SLOW PU SCH ×2 (08:47→19:39)
[2021-01-16] MEDS: TPN 24 HR with Dextrose 50% Water 500 ML, Amino Acid Infusion 10% 850 ML, Sterile Water... CENTR SCH (12:15)
[2021-01-16] MEDS: Phenol 1.4% Throat Spray 177 ml BTL MT PRN ×2 (15:24→23:24)
[2021-01-16] MEDS: Acetaminophen IV 1 GM/100ML 100 ML IV PRN (21:49)
[2021-01-17] MEDS: Enoxaparin 60 MG/0.6 ML SYR SUBCUT SCH ×2 (03:49→17:08)
[2021-01-17 06:35] LABS: Albumin 3.2 g/dL (3.2-5.2); Potassium 4.3 mmol/L (3.5-5.0); Total Bilirubin 0.5 mg/dL (0.2-1.0)
[2021-01-17 06:42] LABS: Albumin/Globulin Ratio 1.5 (1-3); EGFR African American 220.2 (>60); Globulin 2.1 g/dL (2-4); Phosphorus 1.7 mg/dL (2.5-5.0); Total Protein 5.3 g/dL (6.4-8.9)
[2021-01-17] MEDS: Phenol 1.4% Throat Spray 177 ml BTL MT PRN (08:37)
[2021-01-17] MEDS: Acetaminophen IV 1 GM/100ML 100 ML IV PRN (08:38)
[2021-01-17] MEDS: Famotidine IV 10 MG/ML 2 ml VIAL (20 mg) IV SLOW PU SCH ×2 (08:38→19:46)
[2021-01-17] MEDS ORDERED: TPN 24 HR with Dextrose 50% Water 500 ML, Amino Acid Infusion 10% 850 ML, Sterile Water... CENTR SCH (17:00)
[2021-01-17] MEDS: TPN 24 HR with Dextrose 50% Water 500 ML, Amino Acid Infusion 10% 850 ML, Sterile Water... CENTR SCH (17:05)
[2021-01-18] MEDS: Enoxaparin 60 MG/0.6 ML SYR SUBCUT SCH ×2 (03:56→17:17)
[2021-01-18] MEDS: Phenol 1.4% Throat Spray 177 ml BTL MT PRN (05:10)
[2021-01-18 05:44] LABS: Albumin 3.3 g/dL (3.2-5.2); Albumin/Globulin Ratio 1.4 (1-3); Calcium 8.3 mg/dL (8.6-10.3); EGFR African American 253.4 (>60); EGFR Non-African American 209.4 (>60); Globulin 2.4 g/dL (2-4); Magnesium 1.8 mg/dL (1.9-2.7); Phosphorus 2.2 mg/dL (2.5-5.0); Potassium 3.9 mmol/L (3.5-5.0); Total Bilirubin 0.4 mg/dL (0.2-1.0); Total Protein 5.7 g/dL (6.4-8.9)
[2021-01-18] MEDS: Famotidine IV 10 MG/ML 2 ml VIAL (20 mg) IV SLOW PU SCH (09:36)
[2021-01-18 11:10] VITALS: BP 127/76
[2021-01-18] MEDS ORDERED: Benzocaine/Menthol LOZ MT PRN (11:43)
[2021-01-18] MEDS: Acetaminophen IV 1 GM/100ML 100 ML IV PRN (13:34)
== END 2021-01-18 17:50 | disposition home or self-care (01) | DRG 175 ==
LOC: ED 10:44 → SSU 18:06
PROVIDERS: ADMIT Internal Medicine Hematology & Oncology; ATTEND Internal Medicine Hematology & Oncology

== ENCOUNTER 2021-10-05 11:03 | Inpatient (IN) ==
[2021-10-05] MEDS ORDERED: LORazepam 2 mg VIAL 1 ml IV PUSH PRN (12:17)
[2021-10-05] MEDS ORDERED: Lorazepam PYXIS KEY PRN (12:17)
[2021-10-05 12:46] LABS: Hematocrit 34 % (35-47); Hemoglobin 11.1 g/dL (12.0-16.0); Mean Corpuscular HGB Conc 33 g/dL (31-36); Mean Corpuscular Hemoglobin 32 pg (27-31); Mean Corpuscular Volume 96 fL (80-97); Mean Platelet Volume 9.1 fL (7.4-10.4); Platelet Count 188 10^3/uL (150-450); Red Blood Count 3.52 10^6 /uL (3.70-4.87); Red Cell Distribution Width 13 % (10-15); White Blood Count 0.8 10^3/uL (3.5-10.8)
[2021-10-05 12:49] LABS: ABS Neutrophils 0.4 10^3/ul (1.5-7.7)
[2021-10-05 12:55] LABS: Albumin 3.4 g/dL (3.2-5.2); Magnesium 1.7 mg/dL (1.9-2.7); Potassium 4.3 mmol/L (3.5-5.0); Total Bilirubin 0.9 mg/dL (0.2-1.0)
[2021-10-05 13:01] LABS: Albumin/Globulin Ratio 1.2 (1-3); Globulin 2.8 g/dL (2-4); Phosphorus 2.8 mg/dL (2.5-5.0); Total Protein 6.2 g/dL (6.4-8.9); eGFR CKD-EPI 100.9 (>60)
[2021-10-05] MEDS: [UNRECOGNIZED DRUG - OTHER] PO SCH ×5 (15:25→23:50)
[2021-10-05] MEDS: XYLITOL PO SCH ×5 (15:25→23:50)
[2021-10-05] MEDS: Famotidine IV 10 MG/ML 2 ml VIAL (20 mg) IV SLOW PU SCH (15:39)
[2021-10-05] MEDS: TPN 24 HR with Dextrose 70% Water 350 ML, Amino Acid Infusion 10% 850 ML, Sterile Water... TPN SCH (17:14)
[2021-10-05 17:53] LABS: ABS Lymphocytes 0.4 10^3/ul (1.0-4.8); ABS Monocytes 0.1 10^3/ul (0-0.8); Eosinophil % 0.3 %; Lymphocyte % 42.8 %; Nucleated Red Blood Cells % 0.2
[2021-10-05] MEDS: Ondansetron 4 mg VIAL 2 MG/ML 2 ml VIAL IV PRN (19:56)
[2021-10-05] MEDS ORDERED: ACETAMINOPHEN 1 GM/100 ML IV PRN ×2 (21:45→23:00)
[2021-10-05] MEDS: ACETAMINOPHEN 1 GM/100 ML IV PRN (22:38)
[2021-10-06] MEDS: XYLITOL PO SCH ×12 (02:01→23:50)
[2021-10-06] MEDS: [UNRECOGNIZED DRUG - OTHER] PO SCH ×12 (02:01→23:50)
[2021-10-06] MEDS: CEFEPIME 2 GM in Dextrose 50 mL IV SCH ×4 (05:02→22:19)
[2021-10-06 05:32] LABS: Urine Appearance Clear; Urine Bilirubin Negative (Negative); Urine Blood 2+ (Negative); Urine Color Yellow; Urine Glucose 3+(>=500 mg/dL) (Negative); Urine Ketones Negative (Negative); Urine Nitrite Negative (Negative); Urine Protein 1+(30 mg/dL) (Negative); Urine Specific Gravity 1.023 (1.002-1.030); Urine Urobilinogen Negative (Negative)
[2021-10-06] MEDS: ACETAMINOPHEN 1 GM/100 ML IV PRN ×2 (05:36→11:38)
[2021-10-06 05:46] LABS: Urine Bacteria Absent (Absent); Urine Red Blood Cell 3+(>10/hpf) (Absent); Urine Squamous Epithelial Cell Present (Absent); Urine White Blood Cell Trace(0-5/hpf) (Absent); Urine Yeast Present (Absent)
[2021-10-06 06:32] LABS: Albumin 3.2 g/dL (3.2-5.2); Albumin/Globulin Ratio 1.3 (1-3); Calcium 8.3 mg/dL (8.6-10.3); Globulin 2.5 g/dL (2-4); Magnesium 1.5 mg/dL (1.9-2.7); Phosphorus 1.4 mg/dL (2.5-5.0); Total Bilirubin 0.8 mg/dL (0.2-1.0); Total Protein 5.7 g/dL (6.4-8.9); eGFR CKD-EPI 95.7 (>60)
[2021-10-06] MEDS: Famotidine IV 10 MG/ML 2 ml VIAL (20 mg) IV SLOW PU SCH (09:21)
[2021-10-06] MEDS ORDERED: Magnesium Sulf 4 GM/100 ML IV 4,000 MG/100 ML BAG IVPB ONE (10:54)
[2021-10-06] MEDS ORDERED: Sodium Phosphate IV 15 MMOLE in NS 0.9% 250 ml 250 ML IV ONE (10:54)
[2021-10-06] MEDS: HYDROmorphone 0.5 MG/0.5 ML SYRINGE IV SLOW PU PRN (16:10)
[2021-10-06] MEDS: TPN 24 HR with Dextrose 70% Water 350 ML, Amino Acid Infusion 10% 850 ML, Sterile Water... TPN SCH (17:03)
[2021-10-07] MEDS: XYLITOL PO SCH ×6 (01:58→12:45)
[2021-10-07] MEDS: [UNRECOGNIZED DRUG - OTHER] PO SCH ×6 (01:58→12:45)
[2021-10-07] MEDS: CEFEPIME 2 GM in Dextrose 50 mL IV SCH ×3 (04:48→21:00)
[2021-10-07] MEDS: ACETAMINOPHEN 1 GM/100 ML IV PRN ×3 (06:09→22:22)
[2021-10-07 06:59] LABS: Albumin/Globulin Ratio 1.2 (1-3); Calcium 8.4 mg/dL (8.6-10.3); Globulin 2.6 g/dL (2-4); Magnesium 1.7 mg/dL (1.9-2.7); Phosphorus 2.4 mg/dL (2.5-5.0); Potassium 3.9 mmol/L (3.5-5.0); Total Bilirubin 0.7 mg/dL (0.2-1.0); Total Protein 5.6 g/dL (6.4-8.9)
[2021-10-07 08:57] LABS: Hematocrit 30 % (35-47); Mean Corpuscular HGB Conc 34 g/dL (31-36); Mean Corpuscular Hemoglobin 32 pg (27-31); Mean Corpuscular Volume 96 fL (80-97); Mean Platelet Volume 8.3 fL (7.4-10.4); Platelet Count 152 10^3/uL (150-450); Red Blood Count 3.11 10^6 /uL (3.70-4.87); Red Cell Distribution Width 14 % (10-15); White Blood Count 0.8 10^3/uL (3.5-10.8)
[2021-10-07] MEDS: Famotidine IV 10 MG/ML 2 ml VIAL (20 mg) IV SLOW PU SCH (09:07)
[2021-10-07 10:01] LABS: ABS Lymphocytes 0.5 10^3/ul (1.0-4.8); ABS Monocytes 0.1 10^3/ul (0-0.8); ABS Neutrophils 0.2 10^3/ul (1.5-7.7); Eosinophil % 3.5 %; Lymphocyte % 62.7 %; RBC Morphology Normal (Normal)
[2021-10-07] MEDS: Ondansetron 4 mg VIAL 2 MG/ML 2 ml VIAL IV PRN (12:26)
[2021-10-07] MEDS: XYLITOL PO PRN (16:20)
[2021-10-07] MEDS: [UNRECOGNIZED DRUG - OTHER] PO PRN (16:20)
[2021-10-07] MEDS: TPN 24 HR with Dextrose 70% Water 350 ML, Amino Acid Infusion 10% 850 ML, Sterile Water... TPN SCH (16:41)
[2021-10-08] MEDS: Ondansetron 4 mg VIAL 2 MG/ML 2 ml VIAL IV PRN (01:44)
[2021-10-08] MEDS: XYLITOL PO PRN (03:55)
[2021-10-08] MEDS: [UNRECOGNIZED DRUG - OTHER] PO PRN (03:55)
[2021-10-08] MEDS: ACETAMINOPHEN 1 GM/100 ML IV PRN ×3 (04:54→22:29)
[2021-10-08] MEDS: HYDROmorphone 0.5 MG/0.5 ML SYRINGE IV SLOW PU PRN ×3 (05:06→23:23)
[2021-10-08] MEDS: CEFEPIME 2 GM in Dextrose 50 mL IV SCH ×3 (05:34→21:36)
[2021-10-08 06:50] LABS: Albumin 2.9 g/dL (3.2-5.2); Albumin/Globulin Ratio 1.2 (1-3); Calcium 8.5 mg/dL (8.6-10.3); Globulin 2.5 g/dL (2-4); Magnesium 1.7 mg/dL (1.9-2.7); Phosphorus 2.3 mg/dL (2.5-5.0); Potassium 4.1 mmol/L (3.5-5.0); Total Bilirubin 0.7 mg/dL (0.2-1.0); Total Protein 5.4 g/dL (6.4-8.9); eGFR CKD-EPI 104.4 (>60)
[2021-10-08] MEDS ORDERED: HYDROmorphone 0.5 MG/0.5 ML SYRINGE IV SLOW PU ONE (07:10)
[2021-10-08] MEDS: Famotidine IV 10 MG/ML 2 ml VIAL (20 mg) IV SLOW PU SCH (09:11)
[2021-10-08] MEDS: CMCS: Oral Rinse (Biotene)(NF) 237 ML or 473 ML ORAL RINSE BTL MT PRN (13:00)
[2021-10-08] MEDS: TPN 24 HR with Dextrose 70% Water 350 ML, Amino Acid Infusion 10% 850 ML, Sterile Water... TPN SCH (16:39)
[2021-10-09] MEDS: CEFEPIME 2 GM in Dextrose 50 mL IV SCH ×3 (05:50→20:41)
[2021-10-09 06:40] LABS: ABS Eosinophils 0.1 10^3/ul (0-0.6); ABS Lymphocytes 0.3 10^3/ul (1.0-4.8); ABS Neutrophils 0.1 10^3/ul (1.5-7.7); Eosinophil % 15.8 %; Hematocrit 30 % (35-47); Hemoglobin 9.9 g/dL (12.0-16.0); Lymphocyte % 61.9 %; Mean Corpuscular HGB Conc 33 g/dL (31-36); Mean Corpuscular Hemoglobin 32 pg (27-31); Mean Corpuscular Volume 96 fL (80-97); Mean Platelet Volume 8.8 fL (7.4-10.4); Platelet Count 123 10^3/uL (150-450); Red Blood Count 3.11 10^6 /uL (3.70-4.87); Red Cell Distribution Width 14 % (10-15); White Blood Count 0.5 10^3/uL (3.5-10.8)
[2021-10-09 07:16] LABS: Albumin 2.9 g/dL (3.2-5.2); Albumin/Globulin Ratio 1.1 (1-3); Calcium 8.7 mg/dL (8.6-10.3); Globulin 2.7 g/dL (2-4); Magnesium 1.8 mg/dL (1.9-2.7); Phosphorus 2.3 mg/dL (2.5-5.0); Potassium 4.6 mmol/L (3.5-5.0); Total Bilirubin 1.3 mg/dL (0.2-1.0); Total Protein 5.6 g/dL (6.4-8.9)
[2021-10-09] MEDS: Famotidine IV 10 MG/ML 2 ml VIAL (20 mg) IV SLOW PU SCH (09:00)
[2021-10-09] MEDS: NS 0.9% 1000 ml BAG 1,000 ML IV SCH (12:12)
[2021-10-09] MEDS: Phenol 1.4% Throat Spray 177 ml BTL MT PRN (13:43)
[2021-10-09] MEDS: ACETAMINOPHEN 1 GM/100 ML IV PRN ×2 (14:46→22:17)
[2021-10-09] MEDS: HYDROmorphone 0.5 MG/0.5 ML SYRINGE IV SLOW PU PRN ×2 (16:33→22:39)
[2021-10-09] MEDS ORDERED: TPN 24 HR with Dextrose 70% Water 350 ML, Amino Acid Infusion 10% 850 ML, Sterile Water... TPN SCH (17:00)
[2021-10-10] MEDS: HYDROmorphone 0.5 MG/0.5 ML SYRINGE IV SLOW PU PRN ×2 (05:29→15:53)
[2021-10-10] MEDS: CEFEPIME 2 GM in Dextrose 50 mL IV SCH ×3 (05:34→21:47)
[2021-10-10 06:40] LABS: Albumin 2.6 g/dL (3.2-5.2); Calcium 8.4 mg/dL (8.6-10.3); Globulin 2.6 g/dL (2-4); Magnesium 1.9 mg/dL (1.9-2.7); Phosphorus 2.2 mg/dL (2.5-5.0); Potassium 4.6 mmol/L (3.5-5.0); Total Bilirubin 2.8 mg/dL (0.2-1.0); Total Protein 5.2 g/dL (6.4-8.9)
[2021-10-10 06:44] LABS: ABS Eosinophils 0.1 10^3/ul (0-0.6); ABS Lymphocytes 0.3 10^3/ul (1.0-4.8); Eosinophil % 18.4 %; Hematocrit 30 % (35-47); Hemoglobin 9.7 g/dL (12.0-16.0); Lymphocyte % 67.1 %; Mean Corpuscular HGB Conc 33 g/dL (31-36); Mean Corpuscular Hemoglobin 31 pg (27-31); Mean Corpuscular Volume 95 fL (80-97); Mean Platelet Volume 9.1 fL (7.4-10.4); Platelet Count 102 10^3/uL (150-450); Red Blood Count 3.13 10^6 /uL (3.70-4.87); Red Cell Distribution Width 14 % (10-15); White Blood Count 0.5 10^3/uL (3.5-10.8)
[2021-10-10 07:14] LABS: Nucleated Red Blood Cells % 0.3
[2021-10-10] MEDS: Famotidine IV 10 MG/ML 2 ml VIAL (20 mg) IV SLOW PU SCH (09:20)
[2021-10-10] MEDS: ACETAMINOPHEN 1 GM/100 ML IV PRN ×2 (09:25→23:44)
[2021-10-10] MEDS: NS 0.9% 1000 ml BAG 1,000 ML IV SCH (09:37)
[2021-10-10] MEDS: Ondansetron 4 mg VIAL 2 MG/ML 2 ml VIAL IV PRN (13:39)
[2021-10-10] MEDS ORDERED: TPN 24 HR with Dextrose 70% Water 350 ML, Amino Acid Infusion 10% 850 ML, Sterile Water... TPN SCH (17:00)
[2021-10-11] MEDS: HYDROmorphone 0.5 MG/0.5 ML SYRINGE IV SLOW PU PRN ×3 (02:56→21:36)
[2021-10-11] MEDS: NS 0.9% 1000 ml BAG 1,000 ML IV SCH ×2 (03:01→14:22)
[2021-10-11] MEDS: CEFEPIME 2 GM in Dextrose 50 mL IV SCH ×3 (04:42→20:28)
[2021-10-11 06:29] LABS: ABS Lymphocytes 0.4 10^3/ul (1.0-4.8); Eosinophil % 7.6 %; Hematocrit 29 % (35-47); Hemoglobin 9.5 g/dL (12.0-16.0); Lymphocyte % 78.5 %; Mean Corpuscular HGB Conc 33 g/dL (31-36); Mean Corpuscular Hemoglobin 32 pg (27-31); Mean Corpuscular Volume 96 fL (80-97); Mean Platelet Volume 9.3 fL (7.4-10.4); Platelet Count 119 10^3/uL (150-450); Red Blood Count 2.99 10^6 /uL (3.70-4.87); Red Cell Distribution Width 14 % (10-15); White Blood Count 0.5 10^3/uL (3.5-10.8)
[2021-10-11 06:57] LABS: Nucleated Red Blood Cells % 1.1
[2021-10-11] MEDS: Ondansetron 4 mg VIAL 2 MG/ML 2 ml VIAL IV PRN (07:59)
[2021-10-11] MEDS: Famotidine IV 10 MG/ML 2 ml VIAL (20 mg) IV SLOW PU SCH (10:15)
[2021-10-11] MEDS: ACETAMINOPHEN 1 GM/100 ML IV PRN ×2 (12:16→18:25)
[2021-10-11 12:37] LABS: Albumin 2.7 g/dL (3.2-5.2); Albumin/Globulin Ratio 1.2 (1-3); Calcium 8.6 mg/dL (8.6-10.3); Globulin 2.2 g/dL (2-4); Phosphorus 2.2 mg/dL (2.5-5.0); Potassium 4.6 mmol/L (3.5-5.0); Total Bilirubin 3.4 mg/dL (0.2-1.0); Total Protein 4.9 g/dL (6.4-8.9); eGFR CKD-EPI 98.8 (>60)
[2021-10-11] MEDS ORDERED: NS 0.9% 1000 ml BAG 1,000 ML IV ONE (12:55)
[2021-10-11] MEDS: Enoxaparin 60 MG/0.6 ML SYR SUBCUT SCH (14:48)
[2021-10-11] MEDS: TPN 24 HR with Dextrose 70% Water 350 ML, Amino Acid Infusion 10% 850 ML, Sterile Water... TPN SCH (17:02)
[2021-10-11] MEDS: Phenol 1.4% Throat Spray 177 ml BTL MT PRN ×2 (20:29→22:58)
[2021-10-11] MEDS ORDERED: NS 0.9% 500 ML @ Wide Open(Bolus) 500ml IV ONE (21:00)
[2021-10-12] MEDS ORDERED: Vancomycin 1,000 MG - ED ONCE IVPB ONE (00:30)
[2021-10-12] MEDS ORDERED: NS 0.9% 500 ML BAG IV ONE (00:30)
[2021-10-12 01:07] LABS: Urine Appearance Cloudy; Urine Bilirubin Negative (Negative); Urine Blood 2+ (Negative); Urine Color Amber; Urine Glucose Negative (Negative); Urine Ketones Negative (Negative); Urine Nitrite Negative (Negative); Urine Protein 1+(30 mg/dL) (Negative); Urine Specific Gravity 1.029 (1.002-1.030); Urine Urobilinogen Negative (Negative)
[2021-10-12] MEDS ORDERED: Zosyn per Pharmacy NOTE FOLLOW UP PRN ×2 (01:18→03:56)
[2021-10-12] MEDS ORDERED: ZOSYN 3.375 GM x ONE DOSE over 30 miuntes IV (01:30)
[2021-10-12 01:36] LABS: Urine Bacteria Absent (Absent); Urine Granular Casts Present (Absent); Urine Red Blood Cell Absent (Absent); Urine Squamous Epithelial Cell Present (Absent); Urine White Blood Cell Trace(0-5/hpf) (Absent)
[2021-10-12] MEDS: Enoxaparin 60 MG/0.6 ML SYR SUBCUT SCH ×2 (02:37→16:20)
[2021-10-12] MEDS: ACETAMINOPHEN 1 GM/100 ML IV PRN ×3 (03:45→23:05)
[2021-10-12 05:23] LABS: ABS Lymphocytes 0.3 10^3/ul (1.0-4.8); ABS Neutrophils 0.1 10^3/ul (1.5-7.7); Eosinophil % 9.7 %; Hematocrit 24 % (35-47); Hemoglobin 7.9 g/dL (12.0-16.0); Lymphocyte % 64.3 %; Mean Corpuscular HGB Conc 33 g/dL (31-36); Mean Corpuscular Hemoglobin 32 pg (27-31); Mean Corpuscular Volume 95 fL (80-97); Mean Platelet Volume 10.3 fL (7.4-10.4); Platelet Count 114 10^3/uL (150-450); Red Cell Distribution Width 14 % (10-15); White Blood Count 0.4 10^3/uL (3.5-10.8)
[2021-10-12 05:46] LABS: Potassium 4.3 mmol/L (3.5-5.0)
[2021-10-12 05:56] LABS: Albumin 2.2 g/dL (3.2-5.2); Total Bilirubin 3.1 mg/dL (0.2-1.0)
[2021-10-12 06:02] LABS: Globulin 2.2 g/dL (2-4); Total Protein 4.4 g/dL (6.4-8.9); eGFR CKD-EPI 93.8 (>60)
[2021-10-12 06:05] LABS: Phosphorus 2.4 mg/dL (2.5-5.0)
[2021-10-12] MEDS: ZOSYN 3.375 GM Q8H per EXTENDED INFUSION IV SCH ×3 (06:48→23:25)
[2021-10-12] MEDS: Phenol 1.4% Throat Spray 177 ml BTL MT PRN (06:50)
[2021-10-12 08:18] LABS: Nucleated Red Blood Cells % 0.5
[2021-10-12] MEDS: Famotidine IV 10 MG/ML 2 ml VIAL (20 mg) IV SLOW PU SCH (10:16)
[2021-10-12] MEDS ORDERED: Iohexol 300 (CONTRAST) 10 ML SDV IV ONE (12:22)
[2021-10-12] MEDS: Vancomycin 1000 MG in NS 0.9% 250 ML IVPB SCH (14:20)
[2021-10-12] MEDS: TPN 24 HR with Dextrose 70% Water 350 ML, Amino Acid Infusion 10% 850 ML, Sterile Water... TPN SCH (16:24)
[2021-10-12] MEDS: CMCS: Oral Rinse (Biotene)(NF) 237 ML or 473 ML ORAL RINSE BTL MT PRN (20:42)
[2021-10-12] MEDS: HYDROmorphone 0.5 MG/0.5 ML SYRINGE IV SLOW PU PRN (21:07)
[2021-10-12] MEDS: NS 0.9% 1000 ml BAG 1,000 ML IV SCH (23:03)
[2021-10-13] MEDS: Vancomycin 1000 MG in NS 0.9% 250 ML IVPB SCH ×2 (01:25→13:37)
[2021-10-13] MEDS: Enoxaparin 60 MG/0.6 ML SYR SUBCUT SCH ×2 (03:08→15:19)
[2021-10-13 05:24] LABS: Hematocrit 24 % (35-47); Hemoglobin 7.8 g/dL (12.0-16.0); Mean Corpuscular HGB Conc 33 g/dL (31-36); Mean Corpuscular Hemoglobin 32 pg (27-31); Mean Corpuscular Volume 95 fL (80-97); Platelet Count 149 10^3/uL (150-450); Red Blood Count 2.47 10^6 /uL (3.70-4.87); Red Cell Distribution Width 14 % (10-15); White Blood Count 0.8 10^3/uL (3.5-10.8)
[2021-10-13 05:30] LABS: ABS Eosinophils 0.1 10^3/ul (0-0.6); ABS Lymphocytes 0.3 10^3/ul (1.0-4.8); ABS Monocytes 0.1 10^3/ul (0-0.8); ABS Neutrophils 0.3 10^3/ul (1.5-7.7); Eosinophil % 8.2 %; Nucleated Red Blood Cells % 0.5
[2021-10-13 05:57] LABS: Albumin 2.2 g/dL (3.2-5.2); Calcium 8.1 mg/dL (8.6-10.3); Globulin 2.3 g/dL (2-4); Magnesium 2.2 mg/dL (1.9-2.7); Phosphorus 2.6 mg/dL (2.5-5.0); Potassium 4.2 mmol/L (3.5-5.0); Total Bilirubin 2.4 mg/dL (0.2-1.0); Total Protein 4.5 g/dL (6.4-8.9); eGFR CKD-EPI 92.7 (>60)
[2021-10-13] MEDS: ZOSYN 3.375 GM Q8H per EXTENDED INFUSION IV SCH ×3 (06:04→17:58)
[2021-10-13] MEDS: CMCS: Oral Rinse (Biotene)(NF) 237 ML or 473 ML ORAL RINSE BTL MT PRN (06:05)
[2021-10-13] MEDS: ACETAMINOPHEN 1 GM/100 ML IV PRN ×3 (08:15→23:25)
[2021-10-13] MEDS: Famotidine IV 10 MG/ML 2 ml VIAL (20 mg) IV SLOW PU SCH (09:21)
[2021-10-13] MEDS: HYDROmorphone 0.5 MG/0.5 ML SYRINGE IV SLOW PU PRN ×2 (10:39→17:34)
[2021-10-13] MEDS ORDERED: Vancomycin Trough Check NOTE FOLLOW UP ONE (12:30)
[2021-10-13] MEDS ORDERED: TPN 24 HR with Dextrose 70% Water 350 ML, Amino Acid Infusion 10% 850 ML, Sterile Water... TPN SCH (17:00)
[2021-10-13] MEDS: NS 0.9% 1000 ml BAG 1,000 ML IV SCH (23:25)
[2021-10-14] MEDS: ZOSYN 3.375 GM Q8H per EXTENDED INFUSION IV SCH ×3 (00:58→12:25)
[2021-10-14] MEDS: Vancomycin 1000 MG in NS 0.9% 250 ML IVPB SCH ×2 (01:37→13:26)
[2021-10-14] MEDS: HYDROmorphone 0.5 MG/0.5 ML SYRINGE IV SLOW PU PRN (02:09)
[2021-10-14] MEDS: Enoxaparin 60 MG/0.6 ML SYR SUBCUT SCH ×2 (04:20→14:45)
[2021-10-14 04:38] LABS: Hematocrit 24 % (35-47); Hemoglobin 7.8 g/dL (12.0-16.0); Mean Corpuscular HGB Conc 32 g/dL (31-36); Mean Corpuscular Hemoglobin 31 pg (27-31); Mean Corpuscular Volume 95 fL (80-97); Mean Platelet Volume 11.2 fL (7.4-10.4); Platelet Count 186 10^3/uL (150-450); Red Blood Count 2.53 10^6 /uL (3.70-4.87); Red Cell Distribution Width 14 % (10-15); White Blood Count 1.5 10^3/uL (3.5-10.8)
[2021-10-14 04:40] LABS: ABS Eosinophils 0.1 10^3/ul (0-0.6); ABS Lymphocytes 0.4 10^3/ul (1.0-4.8); ABS Monocytes 0.1 10^3/ul (0-0.8); Eosinophil % 5.1 %; Lymphocyte % 23.6 %; Nucleated Red Blood Cells % 0.5
[2021-10-14 05:00] LABS: Albumin 2.1 g/dL (3.2-5.2); Albumin/Globulin Ratio 0.9 (1-3); Calcium 7.9 mg/dL (8.6-10.3); Globulin 2.4 g/dL (2-4); Magnesium 2.1 mg/dL (1.9-2.7); Phosphorus 2.9 mg/dL (2.5-5.0); Potassium 4.2 mmol/L (3.5-5.0); Total Bilirubin 2.1 mg/dL (0.2-1.0); Total Protein 4.5 g/dL (6.4-8.9); eGFR CKD-EPI 92.3 (>60)
[2021-10-14] MEDS: ACETAMINOPHEN 1 GM/100 ML IV PRN (09:35)
[2021-10-14] MEDS: Famotidine IV 10 MG/ML 2 ml VIAL (20 mg) IV SLOW PU SCH (09:37)
[2021-10-14 11:30] VITALS: BP 102/58
[2021-10-15] MEDS ORDERED: Vancomycin Trough Check NOTE FOLLOW UP ONE (12:30)
== END 2021-10-14 16:00 | disposition hospice, home (50) | DRG 389 ==
LOC: CHOA 11:03 → SSU 14:50
PROVIDERS: ADMIT Internal Medicine Hematology & Oncology; ATTEND Internal Medicine Hematology & Oncology